=== PATIENT | male | born 1935 | race Caucasian/White ===

== ENCOUNTER 2024-08-09 16:57 | Inpatient (IN) ==
[2024-08-09 17:33] LABS: Basophils # (auto) 0.03 K/uL (0.00-0.20); Basophils % (auto) 0.3 %; Eosinophils # (auto) 0.04 K/uL (0.00-0.50); Eosinophils % (auto) 0.4 %; Hematocrit (blood only) 42.2 % (42.0-52.0); Hemoglobin 14.3 g/dl (14.0-18.0); Immature Granulocytes # (auto) 0.03 K/uL (0.01-0.20); Immature Granulocytes % (auto) 0.3 %; Lymphocytes # (auto) 0.96 K/uL (1.20-3.40); Lymphocytes % (auto) 10.2 %; Mean Corpuscular Hemoglobin 28.8 pg (25.0-34.0); Mean Corpuscular Hgb Conc 33.9 g/dL (32.0-36.0); Mean Corpuscular Volume 85.1 fL (80.0-100.0); Mean Platelet Volume 8.8 fL (9.4-12.4); Monocytes # (auto) 0.59 K/uL (0.11-0.59); Monocytes % (auto) 6.3 %; Neutrophils # (auto) 7.76 K/uL (1.40-6.50); Neutrophils % (auto) 82.5 %; Platelet Count 207 K/uL (130-400); RDW Coefficient of Variation 13.7 % (11.5-14.5); RDW Standard Deviation 42.5 fL (36.4-46.3); Red Blood Count 4.96 M/uL (4.70-6.10); White Blood Count 9.41 K/ul (4.8-10.8)
[2024-08-09 17:46] LABS: Albumin Globulin Ratio 1.4 (0.9-2); Albumin Level 4.4 gm/dl (3.4-5.0); BUN Creatinine Ratio 29.8 (10-20); Bilirubin,Total 1.5 mg/dl (0.2-1.0); Calcium 9.1 mg/dl (8.6-10.3); Creatinine Clr Calc Pharmacy 56.9 ml/min; Globulin 3.2 gm/dl (2.5-4.0); Potassium 4.2 mmol/L (3.5-5.1); Total Protein 7.6 gm/dl (6.0-8.3)
--- NOTE | 2024-08-09 17:55 | Emergency Department Note ---
Impression & Plan Hypoxia, Acute on chronic heart failure with preserved ejection fraction (HFpEF) ED Provider Note Provider: Cain Garcia MD CHIEF COMPLAINT: Shortness of breath, fluttering in chest HISTORY OF PRESENT ILLNESS: Patient is a 88-year-old gentleman significant past medical history of COPD, hyperlipidemia, lung cancer s/p radiation, CAD, BPH, diabetes, diastolic heart failure presenting here today referred for outpatient clinic. Patient states last night around midnight he began to have episodes where his hands were shaking and fluttering in his chest. Was feeling short of breath. This was intermittent over the next 3 hours or so. Was weak and a difficulty getting out of his chair this morning. States that he was able to get up and went to the doctors. Denies significant new leg swelling or any trauma or syncope. Denies chest pain. No further fluttering in the chest today. Not normally on oxygen. Was around family who had cough and cold symptoms this past weekend. Does report a little rhinorrhea and slight cough. Denies a history of significant cardiac arrhythmia. Noted to be hypoxic as well as with a borderline blood pressure of 100 systolic in the office and sent here for further care. PAST MEDICAL HISTORY: As noted above MEDICATIONS: Reviewed home medications includes aspirin SOCIAL HISTORY: Distant former smoker, PHYSICAL EXAM: GENERAL: alert and oriented in no acute distress on stretcher Head: normocephalic and atraumatic EYES: No injection, discharge or icterus. NECK: Trachea midline. ENT: Mucous membranes pink and moist. LUNGS: Airway patent. No retractions. Breath sounds clear anteriorly with some fine crackles in the bases HEART: Regular rate and rhythm. No chest wall tenderness ABDOMEN: Soft and non-tender, without guarding or rebound. SKIN: Acyanotic, warm, dry, without rashes EXTREMITIES: Without tenderness or deformities 1+ lower extremity swelling. NEUROLOGICAL: No focal deficits moving all extremities. No aphasia. No facial droop or slurred speech. EK bpm sinus rhythm with PAC. No PVC. 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 QTc 477. CONTINUOUS CARDIAC MONITORING: was ordered and showed a heart rate of 80s to 90s bpm in sinus rhythm occasional PACs Patient's laboratory studies and imaging reviewed. Differential includes Reactive airway disease, pneumonia, pneumothorax, COPD, CHF, infections, cardiac ischemia, pulmonary embolism, musculoskeletal, gastrointestinal, as well as other pathologies. IMPRESSION/MEDICAL DECISION MAKING: Patient mildly hypoxic. Distant history of smoking. Not appreciably wheezy here. Reports fluttering overnight. Occasional PAC here. Cannot tired exclude he did have an arrhythmia or A-fib overnight but do not see evidence of this of significance at this time. Again oxygen supplementation is new. Little bit of a tree swing of the legs but he states is not that severe. Blood work here without leukocytosis or anemia. No significant electrolyte abnormality signs of renal dysfunction. No troponin elevation. BNP is sent and chest x-ray obtained to look for signs of pneumonia versus fluid overload. Respiratory viral panel sent given recent sick contacts. Lower suspicion at this time for underlying PE/DVT based on his clinical exam and no evidence of calf swelling or tenderness. Again a significant history of diastolic heart failure in the past. No evidence of STEMI on EKG and again not having any chest pain. Negative respiratory viral panel. Troponin not elevated. BNP mildly elevated 181. Will give small dose of Lasix for diuresis at this time as I do believe he is somewhat fluid overloaded. Unclear if there is a true pneumonia here at this time. Did reach out to the patient's [facility] hospitalist team to discuss further admission and care here given his hypoxia. They will evaluate the patient. Later they added a procalcitonin with some elevation and decided to empirically with antibiotics. DIAGNOSIS: Hypoxia, palpitations, shortness of breath DISPOSITION: Hospitalist will evaluate Patient was agreeable with this plan. Past Med/Surg History Problem List (Updated 08/10/24 @ 00:30 by Cain Garcia M.D.) Acute on chronic heart failure with preserved ejection fraction (HFpEF) (Acute) CAP (community acquired pneumonia) Hypoxia (Acute) Pneumonia Medical History (Updated 08/10/24 @ 00:30 by Cain Garcia M.D.) Dyslipidemia CAD (coronary artery disease) "s/p stent placement 2011" HTN (hypertension) Glaucoma Type 2 diabetes mellitus Esophageal reflux COPD (chronic obstructive pulmonary disease) Asthma Surgical History (Updated 08/09/24 @ 19:22 by Eufemia Soliman PA-C) Stented coronary artery "JOSE CRUZ mid LAD 2011" History of total right hip arthroplasty H/O cataract removal with insertion of prosthetic lens "bilat" H/O sinus surgery Family History (Updated 08/09/24 @ 19:23 by Eufemia Soliman PA-C) Other Coronary heart disease Social History Smoking Status: Former smoker Tobacco Type: Cigarettes Hx Alcohol Use: No Hx Substance Use: No Preferred Language: Tristanian Communication Ability: Impaired Communication Ability Comment: Pt is legally blind, 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 Hearing Ability: Use of Hearing Aid Gum Worker Required: No Beliefs That Will Affect Care: None Current Living Situation: Alone Other Information That Helps Us Care for You: No Feels Safe at Home: Yes Safety Concerns: Feels Safe At This Time Assistive Devices: Denture - Upper, Denture - Lower, Hearing Aid - Bilateral and Walker Allergies Allergies Allergy/AdvReac Type Severity Reaction Status Date / Time bee venom protein (honey bee) Allergy Severe THROAT Verified 08/09/24 18:49 SWELLS codeine Allergy Severe throat Verified 08/09/24 18:49 swells Home Meds Home Medications Medication Instructions Recorded Confirmed amlodipine 5 mg tablet (Norvasc) 5 mg PO QAM 01/22/20 08/09/24 atorvastatin 40 mg tablet (Lipitor) 40 mg PO QPM 01/22/20 08/09/24 lisinopril 10 mg tablet 10 mg PO QAM 01/22/20 08/09/24 vit C 250 mg-vit E 90 mg-zinc 40 1 tab PO BID 01/22/20 08/09/24 mg-copper 1 [id number] capsule (PreserVision AREDS-2) aspirin 81 mg tablet,delayed 81 mg PO QAM 04/03/22 08/09/24 release latanoprost 0.005 % eye drops 1 drp OPB HS 04/03/22 08/09/24 aflibercept 2 mg/0.05 mL 2 mg intravitreal DIRECTED 07/30/22 08/09/24 intravitreal syringe (Eylea) fluticasone 250 mcg-salmeterol 50 1 inh inhalation Q12H 07/30/22 08/09/24 mcg/dose blistr powdr for inhalation (Advair Diskus) fluticasone propionate 50 2 spray intranasal QAM 08/09/24 08/09/24 mcg/actuation nasal spray,suspension Results & Data (ED) Vital Signs Vital Signs - 24 hr 08/09/24 16:58 08/09/24 17:00 08/09/24 17:03 Temperature 36.7 C Temperature Source Temporal Artery Scan Pulse Rate 93 H Pulse Rate [Right Brachial] Pulse Rhythm Regular Pulse Rhythm [Right Brachial] Pulse Strength [Right Brachial] Respiratory Rate 20 Respiratory Effort / Characteristics Non-Labored Respiratory Depth Normal Respiratory Pattern Regular Blood Pressure 155/71 H Blood Pressure [Right Arm] Blood Pressure Mean 99 Blood Pressure Mean [Right Arm] Blood Pressure Position Sitting Blood Pressure Position [Right Arm] Pulse Oximetry 94 Oxygen Delivery Method Nasal Cannula Room Air Room Air Oxygen Flow Rate 3 Sepsis Recent Fever Within 48 Hours No Sepsis New/Unexplained Change in Mental Status No Sepsis Action Taken by Nursing No Action Required 08/09/24 17:03 08/09/24 17:50 08/09/24 18:58 Temperature Temperature Source Pulse Rate 80 Pulse Rate [Right Brachial] 78 Pulse Rhythm Pulse Rhythm [Right Brachial] Regular Pulse Strength [Right Brachial] Normal Respiratory Rate 18 Respiratory Effort / Characteristics Non-Labored Respiratory Depth Normal Respiratory Pattern Regular Blood Pressure Blood Pressure [Right Arm] 116/78 Blood Pressure Mean Blood Pressure Mean [Right Arm] 90 Blood Pressure Position Blood Pressure Position [Right Arm] Lying Pulse Oximetry 90 94 Oxygen Delivery Method Nasal Cannula Room Air Oxygen Flow Rate Sepsis Recent Fever Within 48 Hours Sepsis New/Unexplained Change in Mental Status Sepsis Action Taken by Nursing Laboratory Data 08/09/24 17:11 08/09/24 17:11 Lab Results 08/09/24 Range/Units 17:11 WBC 9.41 (4.8-10.8) K/ul RBC 4.96 (4.70-6.10) M/uL Hgb 14.3 (14.0-18.0) g/dl Hct 42.2 (42.0-52.0) % MCV 85.1 (80.0-100.0) fL MCH 28.8 (25.0-34.0) pg MCHC 33.9 (32.0-36.0) g/dL RDW Std Deviation 42.5 (36.4-46.3) fL RDW Coeff of Garett 13.7 (11.5-14.5) % Plt Count 207 (130-400) K/uL MPV 8.8 L (9.4-12.4) fL Immature Gran % (Auto) 0.3 % Neut % (Auto) 82.5 % Lymph % (Auto) 10.2 % Cassia % (Auto) 6.3 % Eos % (Auto) 0.4 % Baso % (Auto) 0.3 % Neut # (Auto) 7.76 H (1.40-6.50) K/uL Lymph # (Auto) 0.96 L (1.20-3.40) K/uL Cassia # (Auto) 0.59 (0.11-0.59) K/uL Eos # (Auto) 0.04 (0.00-0.50) K/uL Baso # (Auto) 0.03 (0.00-0.20) K/uL Immature Gran # (Auto) 0.03 (0.01-0.20) K/uL PT 12.2 H (9.0-12.0) Seconds INR 1.1 (0.9-1.1) APTT 29 (21-31) Seconds PTT Ratio 1.1 Sodium 136 (136-145) mmol/L Potassium 4.2 (3.5-5.1) mmol/L Chloride 102 (98-107) mmol/L Carbon Dioxide 25 (21-32) mmol/L Anion Gap 9 (3-11) BUN 25 H (6-23) mg/dl Creatinine 0.84 (0.6-1.4) mg/dl Est Cr Clr Drug Dosing 56.9 ml/min eGFR 83.88 BUN/Creatinine Ratio 29.8 H (10-20) Glucose 117 H (70-99(Fasting)) mg/dl Calcium 9.1 (8.6-10.3) mg/dl Total Bilirubin 1.5 H (0.2-1.0) mg/dl AST 15 (13-39) U/L ALT 13 (7-52) U/L Alkaline Phosphatase 100 (34-104) U/L Troponin I High Sens 15.0 (0-20) pg/ml B-Natriuretic Peptide 181 H (0-100) pg/ml Total Protein 7.6 (6.0-8.3) gm/dl Albumin 4.4 (3.4-5.0) gm/dl Globulin 3.2 (2.5-4.0) gm/dl Albumin/Globulin Ratio 1.4 (0.9-2) Procalcitonin 0.64 H (0-0.5) ng/ml Adenovirus (PCR) Not Detected (NotDetected) B. pertussis DNA (PCR) Not Detected (NotDetected) B.parapertussis DNA PCR Not Detected (NotDetected) C. pneumoniae DNA (PCR) Not Detected (NotDetected) Coronavirus OC43 (PCR) Not Detected (NotDetected) Coronavirus HKU1 (PCR) Not Detected (NotDetected) Coronavirus 229E (PCR) Not Detected (NotDetected) SARS-CoV-2 (PCR) Not Detected (NotDetected) Coronavirus NL63 (PCR) Not Detected (NotDetected) Human Metapneumovir PCR Not Detected (NotDetected) Influenza Type A (PCR) Not Detected (NotDetected) Influenza Type B (PCR) Not Detected (NotDetected) M. pneumoniae (PCR) Not Detected (NotDetected) Parainfluenza 1 (PCR) Not Detected (NotDetected) Parainfluenza 2 (PCR) Not Detected (NotDetected) Parainfluenza 3 (PCR) Not Detected (NotDetected) Parainfluenza 4 (PCR) Not Detected (NotDetected) RSV (PCR) Not Detected (NotDetected) Entero/Rhino (PCR) Not Detected (NotDetected) Administered Medications Atorvastatin Calcium (Atorvastatin 40 Mg Tab) 40 mg PO QPM RONNA Stop: 09/08/24 22:07 Last Admin: 08/09/24 22:38 Dose: 40 mg Documented By: MARCELINA Enoxaparin Sodium (Enoxaparin Inj 40 Mg/0.4 Ml Syr) 40 mg SQ HS RONNA Stop: 09/08/24 22:07 Last Admin: 08/09/24 22:38 Dose: 40 mg Documented By: MARCELINA Latanoprost (Latanoprost 0.005% Op Soln 2.5 Ml Btl) 1 drops OPB HS RONNA Stop: 09/08/24 22:07 Last Admin: 08/09/24 22:38 Dose: 1 drops Documented By: DN Discontinued Medications Doxycycline Hyclate (Doxycycline Hyclate 100 Mg Cap) 100 mg PO NOW STA Stop: 08/09/24 20:19 Last Admin: 08/09/24 20:48 Dose: 100 mg Documented By: SAIRA Furosemide (Furosemide Inj 20 Mg/2 Ml Vial) 20 mg IV ONE ONE Stop: 08/09/24 18:49 Last Admin: 08/09/24 19:30 Dose: 20 mg Documented By: SAIRA Ceftriaxone Sodium (Rocephin) 2,000 mg in 50 mls @ 100 mls/hr IV NOW STA Stop: 08/09/24 20:48 Last Infusion: 08/09/24 21:24 Dose: Infused Documented By: Admin: 08/09/24 20:49 Dose: 100 mls/hr Documented By: SAIRA Imaging Data Radiologist's Impression: Chest X-Ray 08/09/24 17:03 EXAM: XR chest 1V not portable CLINICAL HISTORY: Chest pain, nonspecific TECHNIQUE: An X-ray image of the chest is obtained in 1 AP projection. COMPARISON: prior 02/19/2016 FINDINGS: Pulmonary Parenchyma: Bilateral increased bronchovascular markings (nonspecific) Bilateral lower lung zones and left middle lung zone opacities are likely infectious Hazy opacity over the left costophrenic angle, Mild pleural effusion couldn't be excluded Heart and Mediastinum: Heart size and shape are normal. No mediastinal widening or masses. No hilar or mediastinal lymphadenopathy. Bony Thorax: Bony thorax appears intact without fractures or deformities. Soft Tissues: Soft tissues overlying the chest wall are unremarkable. IMPRESSION: 1. Bilateral lower lung zones and left middle lung zone opacities are likely infectious (new finding). 2. Hazy opacity over the left costophrenic angle, and mild pleural effusion couldn't be excluded (increased). 3. Clinical correlation is recommended Electronically signed by Rene Berger 08-09-2024 7:53 PM Discharge Plan Visit Data Chief Complaint: Shortness of Breath/Dyspnea Stated Complaint: DIFFICULTY BREATHING - REFERRED BY DR SEQUEIRA ED Provider: Cain Garcia Discharge Problem: Hypoxia, Acute on chronic heart failure with preserved ejection fraction (HFpEF) Patient Disposition: Admitted As Inpatient Discharge Instructions Interventions: ED Discharge Assessment Last Done: 08/09/24 21:35
[2024-08-09 17:57] LABS: INR 1.1 (0.9-1.1); Partial Thromboplastin Ratio 1.1; Partial Thromboplastin Time 29 Seconds (21-31); Prothrombin Time 12.2 Seconds (9.0-12.0)
[2024-08-09 18:21] LABS: Adenovirus PCR Not Detected (NotDetected); Bordetella parapertussis PCR Not Detected (NotDetected); Bordetella pertussis PCR Not Detected (NotDetected); Chlamydia pneumoniae PCR Not Detected (NotDetected); Coronavirus 229E PCR Not Detected (NotDetected); Coronavirus CoV-2 (COVID19)PCR Not Detected (NotDetected); Coronavirus HKU1 PCR Not Detected (NotDetected); Coronavirus NL63 PCR Not Detected (NotDetected); Coronavirus OC43PCR Not Detected (NotDetected); Human Metapneumovirus PCR Not Detected (NotDetected); Influenza A PCR Not Detected (NotDetected); Influenza B PCR Not Detected (NotDetected); Mycoplasma pneumoniae PCR Not Detected (NotDetected); Parainfluenza Virus 1 PCR Not Detected (NotDetected); Parainfluenza Virus 2 PCR Not Detected (NotDetected); Parainfluenza Virus 3 PCR Not Detected (NotDetected); Parainfluenza Virus 4 PCR Not Detected (NotDetected); Respiratory Syncytial VirusPCR Not Detected (NotDetected); Rhinovirus/Enterovirus PCR Not Detected (NotDetected)
--- NOTE | 2024-08-09 19:23 | History & Physical Report ---
Date of Service August 09, 2024 Assessment & Plan (1) Hypoxia: (2) CAP (community acquired pneumonia): (3) Acute on chronic heart failure with preserved ejection fraction (HFpEF): Plan This is a 88-year-old male who has significant past medical history chronic diastolic CHF, CAD with history of angioplasty to LAD, HTN, HLD, T2DM, COPD, left lung adenocarcinoma tx with radiation and history of tobacco use who presents to ED secondary to Shortness of breath and chest fluttering x 1 day. #Hypoxia #Acute on Chronic HFpEF #CAD with hx of angioplasty to LAD admit to [facility] continue O2, wean as able, encourage ISP Received IV lasix 20mg in ED, will continue 20mg IV BID17 for now daily weights, I and O update echo, last was 2021, preserved EF w/o valvular pathology concern for possible arrhythmia given pt hx with palps for 3 hrs followed by profound exhaustion and weakness #Pneumonia, bilateral #COPD w/o acute exac pt repots chronic cough, no fever, wbc 9k, procal elevated at 0.6 --CXR concerning for bilateral pneumonia resp biofire negative empirically cover with IV rocephin 2g and oral doxy bid #T2DM - diet controlled, last a1c 6.2 in june #HTN: chronic, stable, continue amlodipine and lisinopril #HLD: Chronic, stable, continue statin #Hx of Left lung adenoca s/p radiation 6 months ago, follows rad/onc [facility] #DVT ppx: SQ Lovenox PCP: Dr. Tinajero FULL CODE Dispo: admit to [facility] Pt was seen and examined in collaboration with Dr. Dugan, please see addendum I spent a total of 72 minutes coordinating, documenting and providing care for this patient excluding time spent in the performance of separately billed services or time spent by another provider/QHP. History of Present Illness Chief Complaint: Shortness of breath and chest fluttering x 1 day. Primary Care Provider: Zafar Tinajero, This is a 88-year-old male who has significant past medical history chronic diastolic CHF, CAD with history of angioplasty to LAD, HTN, HLD, T2DM, COPD, left lung adenocarcinoma and history of tobacco use who presents to ED secondary to Shortness of breath and chest fluttering x 1 day. Hx obtained from pt, at bedside and external chart review.patient states at approximately 12 AM this morning he was lying in bed whenever he got a feeling of, "fluttering in his chest," his arms and hands were shaking, chills and sweats. states that he sleeps in a recliner so did not witness the event. He also felt increasingly more short of breath during the event. He states after approximately 3 hours the symptoms resolved on its own and he felt significantly weak after the event. It took him until approximately 5 AM to be able to get up and try to ambulate. He continued to feel weak and short of breath. He denied any amy chest pain, fever, lightheadedness, dizziness, nausea, vomiting, abdominal pain, changes bowel or urinary habits. He does have a chronic mildly productive cough. He feels this is unchanged. He does still feel more short of breath. He has never experienced anything like this before. He does follow with [facility] cardiology given his known history of diastolic CHF and prior angioplasty to his LAD. He has been compliant with his medications. He lives with his at home and is otherwise active. He was seen and evaluated by PCP who recommended further evaluation in ED due to patient being slightly hypoxic at 88%. In ED patient was hemodynamically stable. He did require 2 L of oxygen via nasal cannula to maintain saturation around 94%. His CBC and CMP was generally unremarkable. Initial troponin was WNL. His BNP was elevated at 181. He does have a mildly elevated procalcitonin at 0.64. His respiratory bio fire was negative. CXR concerning for b/l PNA. Allergies Allergy/AdvReac Type Severity Reaction Status Date / Time bee venom protein (honey bee) Allergy Severe THROAT Verified 08/09/24 18:49 [facility] codeine Allergy Severe throat Verified 08/09/24 18:49 [facility] Home Medications Medication Instructions Recorded Confirmed Type amlodipine 5 mg tablet (Norvasc) 5 mg PO QAM 01/22/20 08/09/24 History atorvastatin 40 mg tablet (Lipitor) 40 mg PO QPM 01/22/20 08/09/24 History lisinopril 10 mg tablet 10 mg PO QAM 01/22/20 08/09/24 History vit C 250 mg-vit E 90 mg-zinc 40 1 tab PO BID 01/22/20 08/09/24 History mg-copper 1 st-iftfnx-aorzyb capsule (PreserVision AREDS-2) aspirin 81 mg tablet,delayed 81 mg PO QAM 04/03/22 08/09/24 History release latanoprost 0.005 % eye drops 1 drp OPB HS 04/03/22 08/09/24 History aflibercept 2 mg/0.05 mL 2 mg intravitreal DIRECTED 07/30/22 08/09/24 History intravitreal syringe (Eylea) fluticasone 250 mcg-salmeterol 50 1 inh inhalation Q12H 07/30/22 08/09/24 History mcg/dose blistr powdr for inhalation (Advair Diskus) fluticasone propionate 50 2 spray intranasal QAM 08/09/24 08/09/24 History mcg/actuation nasal spray,suspension Past Med/Surg History Problem List (Updated 08/10/24 @ 13:26 by Artur Wilson DO) Primary lung adenocarcinoma Acute hypoxic respiratory failure Acute on chronic heart failure with preserved ejection fraction (HFpEF) (Acute) CAP (community acquired pneumonia) Hypoxia (Acute) Pneumonia Medical History Dyslipidemia CAD (coronary artery disease) "s/p stent placement 2011" HTN (hypertension) Glaucoma Type 2 diabetes mellitus Esophageal reflux COPD (chronic obstructive pulmonary disease) Asthma Surgical History Stented coronary artery "JOSE CRUZ mid LAD 2011" History of total right hip arthroplasty H/O cataract removal with insertion of prosthetic lens "bilat" H/O sinus surgery Family History Other Coronary heart disease Social History Smoking Status: Former smoker Tobacco Type: Cigarettes Hx Alcohol Use: No Hx Substance Use: No Preferred Language: Slovenian Communication Ability: Effective Communication Ability Comment: Pt is legally blind, 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 Hearing Ability: Use of Hearing Aid Religious Leader Required: No Beliefs That Will Affect Care: None Current Living Situation: Alone Other Information That Helps Us Care for You: No Feels Safe at Home: Yes Safety Concerns: Feels Safe At This Time Assistive Devices: Walker Review of Systems Review of Systems: All systems reviewed & are unremarkable except as noted in HPI & below Physical Exam Physical Exam: Constitutional: WD/WN, vitals as above, NAD, sitting up in bed, pleasant, conversing easily Head: Normocephalic, Atraumatic Eyes: PERRL, conjunctivae normal, anicteric sclerae ENMT: external ear and nose normal, oropharynx normal Neck: trachea midline, no thyromegaly normal visual inspection Respiratory: normal respiratory effort, lungs clear to auscultation,+ crackles at bases, no wheeze, rales, rhonchi. Normal insp/exp effort, no accessory m uscle use Cardiovascular: RRR, no murmur, no edema Vessels: no JVD or carotid bruit Chest: normal inspection of chest Abdomen: normal bowel sounds, soft, nontender, no hepatosplenomegaly Musculoskeletal: no cyanosis or clubbing, extremities motor strength 5/5 Skin: no rashes, warm and dry normal turgor Neurologic: PERRL, EOMI, accommodation nl, no face palsy, no dysarthria CN's II-XI intact bilaterally and moves all extremities Psychiatric: A+Ox3, euthymic affect Lymphatic: no cervical or axillary lymphadenopathy : deferred Results & Data Results & Data Vital Signs (Past 12 Hours) Vital Signs Temp Pulse Resp BP Pulse Ox O2 Del Method O2 Flow Rate 08/09/24 17:50 80 08/09/24 17:03 90 Nasal Cannula 08/09/24 17:03 Room Air 08/09/24 17:00 36.7 C 93 H 20 155/71 H 94 Room Air 08/09/24 16:58 Nasal Cannula 3 Laboratory Results I have independently reviewed and interpreted patient's admitting labs including CBC, CMP, PTT, PT/INR, bnp and troponin. Diagnostic Findings Chest X-Ray 08/09/24 17:03 EXAM: XR chest 1V not portable CLINICAL HISTORY: Chest pain, nonspecific TECHNIQUE: An X-ray image of the chest is obtained in 1 AP projection. COMPARISON: prior 02/19/2016 FINDINGS: Pulmonary Parenchyma: Bilateral increased bronchovascular markings (nonspecific) Bilateral lower lung zones and left middle lung zone opacities are likely infectious Hazy opacity over the left costophrenic angle, Mild pleural effusion couldn't be excluded Heart and Mediastinum: Heart size and shape are normal. No mediastinal widening or masses. No hilar or mediastinal lymphadenopathy. Bony Thorax: Bony thorax appears intact without fractures or deformities. Soft Tissues: Soft tissues overlying the chest wall are unremarkable. IMPRESSION: 1. Bilateral lower lung zones and left middle lung zone opacities are likely infectious (new finding). 2. Hazy opacity over the left costophrenic angle, and mild pleural effusion couldn't be excluded (increased). 3. Clinical correlation is recommended Electronically signed by Rene Berger 08-09-2024 7:53 PM Medications Administered Current Inpatient Medications Doxycycline Hyclate (Doxycycline Hyclate 100 Mg Cap) 100 mg PO BID RONNA Stop: 08/14/24 20:59 Ceftriaxone Sodium (Rocephin) 2,000 mg in 50 mls @ 100 mls/hr IV Q24H RONNA Stop: 08/14/24 20:14 ECG Additional Comments: I have independently reviewed and interpreted patient's admitting EKG which revealed: NSR 94 bpm with PAC, LAFB and RBB noted COVID-19 Results Results COVID-19 Adm Lab Results: RBC 4.13 M/uL (4.70-6.10) L 08/10/24 WBC 5.98 K/ul (4.8-10.8) 08/10/24 Hgb 11.9 g/dl (14.0-18.0) L 08/10/24 Hct 35.4 % (42.0-52.0) L 08/10/24 Plt Count 168 K/uL (130-400) 08/10/24 Neutrophils (%) (Auto) 82.5 % 08/09/24 Lymphocytes (%) (Auto) 10.2 % 08/09/24 Monocytes # (Auto) 0.59 K/uL (0.11-0.59) 08/09/24 Eosinophils # (Auto) 0.04 K/uL (0.00-0.50) 08/09/24 Immature Granulocyte % (Auto) 0.3 % 08/09/24 Neutrophils # (Auto) 7.76 K/uL (1.40-6.50) H 08/09/24 Lymphocytes # (Auto) 0.96 K/uL (1.20-3.40) L 08/09/24 Monocytes # (Auto) 0.59 K/uL (0.11-0.59) 08/09/24 Eosinophils # (Auto) 0.04 K/uL (0.00-0.50) 08/09/24 Basophils # (Auto) 0.03 K/uL (0.00-0.20) 08/09/24 Immature Granulocyte # (Auto) 0.03 K/uL (0.01-0.20) 5 Na 137 mmol/L (136-145) 08/10/24 K 3.8 mmol/L (3.5-5.1) 08/10/24 Cl 105 mmol/L (98-107) 08/10/24 CO2 27 mmol/L (21-32) 08/10/24 Anion Gap 5 (3-11) 08/10/24 BUN 27 mg/dl (6-23) H 08/10/24 Creatinine 0.73 mg/dl (0.6-1.4) 08/10/24 BUN/Creatinine Ratio 37.0 (10-20) H 08/10/24 Glucose Level 96 mg/dl (70-99(Fasting)) 08/10/24 Ca 8.5 mg/dl (8.6-10.3) L 08/10/24 Total Bilirubin 1.5 mg/dl (0.2-1.0) H 08/09/24 Direct Bilirubin 0.2 mg/dl (0-0.2) 08/10/24 AST/SGOT 15 U/L (13-39) 08/09/24 ALT/SGPT 13 U/L (7-52) 08/09/24 Alkaline Phosphatase 100 U/L (34-104) 08/09/24 Total Protein 7.6 gm/dl (6.0-8.3) 08/09/24 Albumin 4.4 gm/dl (3.4-5.0) 08/09/24 Globulin 3.2 gm/dl (2.5-4.0) 08/09/24 Albumin/Globulin Ratio 1.4 (0.9-2) 08/09/24 Procalcitonin 0.64 ng/ml (0-0.5) H 08/09/24 PTT 29 Seconds (21-31) 08/09/24 INR 1.1 (0.9-1.1) 08/09/24 Adenovirus (PCR) Not Detected (NotDetected) 08/09/24 B. parapertussis DNA (PCR) Not Detected (NotDetected) 07/31 B. pertussis DNA (PCR) Not Detected (NotDetected) 08/09/24 C. pneumoniae DNA (PCR) Not Detected (NotDetected) 5 Coronavirus Type OC43 (PCR) Not Detected (NotDetected) 07/31 Coronavirus Type HKU1 (PCR) Not Detected (NotDetected) 07/31 Coronavirus Type 229E (PCR) Not Detected (NotDetected) 07/31 COVID-19 PCR Not Detected (NotDetected) 08/09/24 Coronavirus Type NL63 (PCR) Not Detected (NotDetected) 07/31 Human Metapneumovirus (PCR) Not Detected (NotDetected) 07/31 Influenza Virus Type A (PCR) Not Detected (NotDetected) Influenza Virus Type B (PCR) Not Detected (NotDetected) M. pneumoniae (PCR) Not Detected (NotDetected) 08/09/24 Parainfluenza Type 1 (PCR) Not Detected (NotDetected) 07/31 Parainfluenza Type 2 (PCR) Not Detected (NotDetected) 07/31 Parainfluenza Type 3 (PCR) Not Detected (NotDetected) 07/31 Parainfluenza Type 4 (PCR) Not Detected (NotDetected) 07/31 RSV (PCR) Not Detected (NotDetected) 08/09/24 Enterovirus/Rhinovirus (PCR) Not Detected (NotDetected) Chest X-Ray 08/09/24 Code Status & VTE Plan Code Status FULL CODE Supervising Physician Co-Signing Physician Notes Pt was seen and examined by myself, Alyce Dugan MD on the day of service. Care was coordinated with Eufemia Soliman PA-C. 88yo presenting with chest pain. Found to be in acute CHF exacerbation with concern for pneumonia as well. RRR, breath sounds with some crackles noted Diuresis with IV lasix, IV rocephin and doxycycline for pneumonia Cardiology consult, appreciate further recs Otherwise as above. I spent a total [id number] coordinating, documenting, and providing care for this patient excluding time spent in the performance of separately billed se rvices
[2024-08-09] MEDS: FUROSEMIDE INJ 20 MG/2 ML VIAL IV ONE (19:30)
--- NOTE | 2024-08-09 19:53 | XRay Report ---
EXAM: XR chest 1V not portable CLINICAL HISTORY: Chest pain, nonspecific TECHNIQUE: An X-ray image of the chest is obtained in 1 AP projection. COMPARISON: prior 02/19/2016 FINDINGS: Pulmonary Parenchyma: Bilateral increased bronchovascular markings (nonspecific) Bilateral lower lung zones and left middle lung zone opacities are likely infectious Hazy opacity over the left costophrenic angle, Mild pleural effusion couldn't be excluded Heart and Mediastinum: Heart size and shape are normal. No mediastinal widening or masses. No hilar or mediastinal lymphadenopathy. Bony Thorax: Bony thorax appears intact without fractures or deformities. Soft Tissues: Soft tissues overlying the chest wall are unremarkable. IMPRESSION: 1. Bilateral lower lung zones and left middle lung zone opacities are likely infectious (new finding). 2. Hazy opacity over the left costophrenic angle, and mild pleural effusion couldn't be excluded (increased). 3. Clinical correlation is recommended Electronically signed by Rene Berger 08-09-2024 7:53 PM
[2024-08-09] MEDS: DOXYCYCLINE HYCLATE 100 MG CAP PO STA (20:48)
[2024-08-09] MEDS: cefTRIAXone SODIUM 2,000 MG/50 ML BAG IV STA (20:49)
[2024-08-09] MEDS ORDERED: ALUMINUM/MAGNESIUM SUSP 30 ML UDC PO PRN (22:08)
[2024-08-09] MEDS ORDERED: ONDANSETRON INJ 2 MG/ML 2 ML VIAL IV PRN (22:08)
[2024-08-09] MEDS ORDERED: POLYETHYLENE (MIRALAX) 17 GM PACK PO PRN (22:08)
[2024-08-09] MEDS ORDERED: FAMOTIDINE 20 MG TAB PO PRN (22:08)
[2024-08-09] MEDS ORDERED: ACETAMINOPHEN 325 MG TAB PO PRN (22:08)
[2024-08-09] MEDS: ENOXAPARIN INJ 40 MG/0.4 ML SYR SQ SCH (22:38)
[2024-08-09] MEDS: ATORVASTATIN 40 MG TAB PO SCH (22:38)
[2024-08-09] MEDS: LATANOPROST 0.005% OP SOLN 2.5 ML BTL OPB SCH (22:38)
[2024-08-10 06:08] LABS: Hematocrit (blood only) 35.4 % (42.0-52.0); Hemoglobin 11.9 g/dl (14.0-18.0); Mean Corpuscular Hemoglobin 28.8 pg (25.0-34.0); Mean Corpuscular Hgb Conc 33.6 g/dL (32.0-36.0); Mean Corpuscular Volume 85.7 fL (80.0-100.0); Mean Platelet Volume 9.1 fL (9.4-12.4); Platelet Count 168 K/uL (130-400); RDW Coefficient of Variation 13.5 % (11.5-14.5); RDW Standard Deviation 42.3 fL (36.4-46.3); Red Blood Count 4.13 M/uL (4.70-6.10); White Blood Count 5.98 K/ul (4.8-10.8)
[2024-08-10 06:12] LABS: Bilirubin Direct 0.2 mg/dl (0-0.2); Calcium 8.5 mg/dl (8.6-10.3); Creatinine Clr Calc Pharmacy 65.7 ml/min; Magnesium 1.9 mg/dl (1.7-2.4); Potassium 3.8 mmol/L (3.5-5.1)
[2024-08-10 06:28] LABS: Thyroid Stimulating Hormone 3.648 uIu/ml (0.300-4.500)
--- OUTSIDE RECORDS SUMMARY | 2024-08-10 07:22 | External Medical Summary ---
Author Name Unknown Address Unknown Organization [id number]:[facility] [address] [place] [address] Laboratory Report Ordering Provider Test Date Status JORDAN PORTER 08/09/2024 14:21:41 Final Observation Date Value Abnormality Reference (Units ) Status Color of Urine by Auto 08/09/2024 14:21:41 Yellow Light Yellow, Yellow, Dark Yellow Final Clarity, Urine 08/09/2024 14:21:41 Clear Clear Final Glucose [Mass/volume] in Urine by Automated test strip 08/09/2024 14:21:41 Negative Negative (mg/dL) Final Bilirubin.total [Presence] in Urine by Automated test strip 08/09/2024 14:21:41 Negative Negative Final Ketones [Mass/volume] in Urine by Automated test strip 08/09/2024 14:21:41 Trace Abnormal Negative (mg/dL) Final Specific gravity, Urine 08/09/2024 14:21:41 1.015 1.003-1.030 Final Hemoglobin [Presence] in Urine by Automated test strip 08/09/2024 14:21:41 Trace Abnormal Negative Final pH, Urine 08/09/2024 14:21:41 5.5 5.0-7.5 (Units) Final Protein [Mass/volume] in Urine by Automated test strip 08/09/2024 14:21:41 30 Abnormal Negative (mg/dL) Final Urobilinogen [Mass/volume] in Urine by Automated test strip 08/09/2024 14:21:41 1.0 0.2, 1.0 (mg/dL) Final Nitrite [Presence] in Urine by Automated test strip 08/09/2024 14:21:41 Negative Negative Final Leukocyte esterase [Presence] in Urine by Automated test strip 08/09/2024 14:21:41 Negative Negative Final RBC, Urine 08/09/2024 14:21:41 0-2 0-2 (/HPF) Final WBC, Urine 08/09/2024 14:21:41 0-2 0-2 (/HPF) Final Bacteria [#/area] in Urine sediment by Microscopy high power field 08/09/2024 14:21:41 0-25 0-25 (/HPF) Final CULTURE, URINE - [facility] 08/09/2024 14:21:41 Final Culture not indicated by uri nalysis results\X09\ Performing Location [facility] [address] [place] [address]
--- OUTSIDE RECORDS SUMMARY | 2024-08-10 07:22 | External Medical Summary ---
Author Name Unknown Address Unknown Organization [id number]:[facility] [address] [place] [address] Laboratory Report Ordering Provider Test Date Status JORDAN PORTER 08/09/2024 14:21:41 Final Observation Date Value Abnormality Reference (Units ) Status WBC, Total 08/09/2024 14:21:41 8.59 4.00-10.8 0 (K/uL) Final RBC 08/09/2024 14:21:41 4.80 4.50-5.25 (M/uL) Final Hemoglobin 08/09/2024 14:21:41 13.9 Below low normal 14 .0-16.8 (g/dL) Final HCT 08/09/2024 14:21:41 42.4 40.0-48.4 (%) Final MCV 08/09/2024 14:21:41 88.3 82.0-99.5 (fL) Final MCH 08/09/2024 14:21:41 29.0 27.0-34.0 (pg) Final MCHC 08/09/2024 14:21:41 32.8 32.0-36.0 (g/dL) Final RDW 08/09/2024 14:21:41 14.2 11.5-15.5 (%) Final Platelets 08/09/2024 14:21:41 196 140-400 (K /uL) Final MPV 08/09/2024 14:21:41 9.0 6.6-11.1 ( fL) Final Performing Location [facility] [address] [place] [id number]
--- OUTSIDE RECORDS SUMMARY | 2024-08-10 07:23 | External Medical Summary ---
Author Name Unknown Address Unknown Organization K0G:[facility] [address] [place] [address] Laboratory Report Ordering Provider Test Date Status JORDAN PORTER 08/09/2024 14:21:41 Final Observation Date Value Abnormality Reference (Units ) Status BUN 08/09/2024 14:21:41 23 Above high normal 6-20 (mg/dL) Final Creatinine 08/09/2024 14:21:41 0.8 0.6-1.2 (mg/dL) Final Glomerular filtration rate/1.73 sq M.predicted [Volume Rate/Area] in Serum, Plasma or Blood by Creatinine-based formula (CKD-EPI) 08/09/2024 14:21:41 84 >=60 (mL/min) Final eGFR is calculated based on the CKD-EPI 2020 equation. Sodium 08/09/2024 14:21:41 136 135-146 (m mol/L) Final Potassium 08/09/2024 14:21:41 4.4 3.5-5.1 (m mol/L) Final Cl 08/09/2024 14:21:41 101 98-107 (mm ol/L) Final CO2 08/09/2024 14:21:41 23 22-32 (mmo l/L) Final Anion gap 08/09/2024 14:21:41 12 7-15 (mmol /L) Final Glucose 08/09/2024 14:21:41 141 Above high normal 70 -120 (mg/dL) Final Albumin 08/09/2024 14:21:41 4.0 3.8-5.0 (g /dL) Final AST (Aspartate aminotransferase) 08/09/2024 14:21:41 16 10-50 (U/L) Fin al Alk Phos 08/09/2024 14:21:41 110 35-130 (U/ L) Final Bilirubin, Total 08/09/2024 14:21:41 1.1 <=1 .2 (mg/dL) Final Calcium 08/09/2024 14:21:41 8.5 8.4-10.2 ( mg/dL) Final Protein 08/09/2024 14:21:41 6.4 6.0-8.3 (g /dL) Final ALT (Alanine aminotransferase) 08/09/2024 14:21:41 13 10-50 (U/L) Mike rollins Performing Location [facility] [address] [place] [address]
--- OUTSIDE RECORDS SUMMARY | 2024-08-10 07:23 | External Medical Summary ---
Author Name Unknown Address Unknown Organization K01:[facility] [address] [facility] [address] Laboratory Report Ordering Provider Test Date Status JORDAN PORTER 06/29/2024 13:18:43 Final Observation Date Value Abnormality Reference (Units ) Status SYNC LEUKOCYTES IN BLOOD BY AUTOMATED COUNT 06/29/2024 13:18:43 7.16 4.00-10.80 (K/uL) Final Segs 06/29/2024 13:18:43 68.3 40.0-75.0 (%) Final Lymphs % 06/29/2024 13:18:43 15.8 Below low normal 18.0-42.0 (%) Final Monos 06/29/2024 13:18:43 7.8 1.0-11.0 (%) Final Eosinophils 06/29/2024 13:18:43 6.7 Above high normal 0.0-6.0 (%) Final Basos 06/29/2024 13:18:43 0.7 0.0-2.0 (%) Final Immature Granulocyte, Percent 06/29/2024 13:18:43 0.7 0.0-2.0 (%) Final Absolute Segs 06/29/2024 13:18:43 4.89 1.80-7.70 (K/uL) Final Lymphs, absolute 06/29/2024 13:18:43 1.13 1.00-4.80 (K/ul) Final Monos, Abs 06/29/2024 13:18:43 0.56 0.00-1.10 (K/uL) Final Eos, Abs 06/29/2024 13:18:43 0.48 0.00-0.70 (K/uL) Final Basos, Abs 06/29/2024 13:18:43 0.05 0.00-0.20 (K/uL) Final Immature Granulocytes, Number 06/29/2024 13:18:43 0.05 0.00-0.20 (K/uL) Final Performing Location [facility] [address] [place] [address]
--- OUTSIDE RECORDS SUMMARY | 2024-08-10 07:23 | External Medical Summary | Summary of Care ---
Author Name Unknown Organization [facility] Address [address] [place] [address] Phone [phone] Care Team Providers Care Electrical Instrumentation Technician Name Role Phone Zafar Tinajero DO Primary Care Provider [phone] Reason for Visit * Reason Onset Date Comments Test Results 07/02/2024 Encounter Details Date Type Department Care Team (Late st Contact Info) Description 07/02/2024 Telephone Family Practice [address] [facility] [address] [place] [address] Zafar Tinajero DO [address] [place] [address] Test Results (/) Allergies Active Allergy Reactions Criticality Noted Date Comments Codeine Sulfate High 08/05/2010 Throat swelling Oxycodone-Acetaminophen 08/22/2023 documented as of this encounter (statuses as of 07/02/2024) Medications ASPIRIN 81 MG PO CHEWIndications :INTERFACED RESULT take one tablet daily 30 Tab 11 2 Active PRESERVISION AREDS 2 PO CAPS Take 1 capsule by mouth twice daily Active Glucose Blood (ONETOUCH VERIO) STRP Test blood sugar twice times daily or as directed E11.9 200 Strip 3 0 Active Dutasteride 0.5 MG Oral Capsule (Avodart) Take 1 Capsule by mouth in the morning. 90 Capsule 3 3 Active Fluticasone-Irwin meterol 250-50 MCG/ACT Inhalation Aerosol Powder Breath Activated (Advair Diskus) Inhale 1 Puff by mouth in the morning and 1 Puff before bedtime. 180 Each 2 4 Active Latanoprost 0.005 % Ophthalmic Solution (Xalatan)Indica tions:Other glaucoma of both eyes Instill 1 drop into both eyes once daily 2.5 mL 12 4 Active Fluticasone Propionate 50 MCG/ACT Nasal Suspension (Flonase)Indica tions:Nasal polyp Administer 2 Sprays into each nostril in the morning. 48 g 3 4 Active Atorvastatin Calcium 40 MG Oral Tablet (Lipitor)Indica tions:Dyslipide sumanth, goal LDL below 100 Take 1 Tablet by mouth daily. 90 Tablet 1 4 Active Lisinopril 10 MG Oral Tablet (Prinivil)Indic ations:HTN, goal below 140/90 Take 1 Tablet by mouth in the morning. 90 Tablet 1 4 Active amLODIPine Besylate 5 MG Oral Tablet (Norvasc) Take 1 Tablet by mouth in the morning. 90 Tablet 1 4 Active Hospital, Clinic, or Other Facility Administered Medication Ordered Dose Route Frequency Start Date End Date Status Faricimtb-svoa ([facility]) prefilled syringe inj 6 mgIndications:Exudative 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 with active choroidal neovascularization (HCC) 6 mg IZ PRN 04/25/2024 04/25/2025 Active documented as of this encounter (statuses as of 07/02/2024) Active Problems Problem Noted Date Diagnosed Date Adenocarcinoma, lung, left 10/18/2023 Cancer Staging:Clinical: Unsigned Generalized weakness 08/31/2022 Assessment & Plan (08/31/2022 11:06 AM EDT): Weakness, abnormal gait for several months--> he is unsure if it is med related. No falls. Seems reluctant for home PT as he does his own exercises. 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 06/22/2022 Assessment & Plan (06/20/2023 4:33 PM EST): "RED FLAG" HF Symptoms: Leg Swelling (Examples: "I can't wear certain socks or shoes", "My pants feel tight") Increased dyspnea on exertion (Example: "I can't walk to the kitchen or up the stairs") Medication Regimen: Beta Destiny Therapy: No beta-destiny secondary to unknown ROSA Inhibitor/ARB Therapy: Lisinopril Diuretic therapy: No diuretic secondary to no longer needed SGLT2 Inhibitor: No Current SGLT2 (Describe in the Comments) Remote Patient Monitoring Vendor: [facility] Device(s): Refinder by Gnowsis Scale Self - Management Plan Other/Additional Comments: no current diuretic use Exacerbation Plan BMP Chest X-Ray Additional Comments: Overall stable, not on diuretics Assessment & Plan (08/31/2022 11:03 AM EDT): Plan as noted above Chronic diastolic heart failure 07/29/2021 Overview (09/07/2022): Echocardiogram 01/06/2022 Ejection fraction 50-59% Grade 1 diastolic dysfunction Assessment & Plan (09/07/2022 1:58 PM EDT): Euvolemic today. Assessment & Plan (08/31/2022 11:02 AM EDT): Appears euvolemic -continue lisinopril Primary open-angle glaucoma, bilateral, indeterm inate stage 06/19/2021 Nonallergic rhinitis 01/13/2021 COPD, group B, by GOLD 2017 classification 12/16 Overview: Per COPD GOLD Classification Assessment & Plan (06/20/2023 4:31 PM EST): "RED FLAG" COPD symptoms: Increased dyspnea on exertion ("I can't walk to the kitchen or up the stairs without coughing and wheezing", "My chest feels tight any time I move") Wheezing ("You can hear the whistling across the room") Medication Regimen Class D, Asthma/COPD Overlap - Inhaled Glucocorticoid-LABA Combination Inhaler Remote Patient Monitoring Vendor: No Connected RPM Device(s): Connected Scale Traditional Pulse Ox Self-Management plan Other/Additional Comments: no recent exacerbation Exacerbation plan Chest Xray Additional Comments: Breathing stable overall Assessment & Plan (08/31/2022 11:04 AM EDT): Continue advair. Albuterol prn. 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 History of tobacco use 08/24/2012 Nasal polyps 08/24/2012 Assessment & Plan (09/07/2022 2:00 PM EDT): On Dupixent -message sent to prescribing team for follow-up. Patient is due this week for his next injection. Assessment & Plan (08/31/2022 11:04 AM EDT): Just started dupixent Sensorineural hearing loss, bilateral 08/24/2012 Presence of drug coated stent in LAD coronary ar laura 04/19/2012 Dyslipidemia, goal LDL below 100 04/17/2009 Overview (04/17/2009): Per Lipid Taxonomy. Controlled type 2 diabetes m shirleyitus without complication, without long-term current use of insulin 03/06/2009 Overview (09/02/2015): Per Diabetes Taxonomy. ICD-10 update of inactive term Assessment & Plan (06/20/2023 4:29 PM EST): "RED FLAG" Diabetic symptoms: Increased Urine Output and Confusion Goal HgbA1c <8 Diabetic Complications Opthalmologic Medication Regimen Lifestyle Modification / Monitoring ONLY DM Secondary Prevention ROSA Inhibitor / ARB Yearly Diabetic Eye Exam Additional Comments Recent A1c at goal Elevated prostate specific antigen (PSA) 999 Assessment & Plan (06/21/2023 8:51 AM EST): Follows with urology Continues on dutasteride although decreased frequency due to side effects documented as of this encounter (statuses as of 07/02/2024) Resolved Problems Problem Noted Date Diagnosed Date Resolved Date Prediabetes 10/18/2023 12/27/2023 Cellulitis of left lower extremity 08/31/2022 10/20/2022 Assessment & Plan (09/07/2022 2:00 PM EDT): Healing well Assessment & Plan (08/31/2022 11:05 AM EDT): Finished ABX about 2 weeks ago -f/u next week for a recheck 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 Yap Primary open-angle glaucoma, bilateral, mild stage 02/11/2020 02/19/2022 Asthma with severity to be determined 05/22/2019 01/16/2020 Type 2 diabetes mellitus wit h hemoglobin A1c goal of less than 7.0% 05/10/2018 05/16/2018 Viral syndrome 11/03/2016 07/26/2017 Severe sepsis 10/31/2016 11/03/2016 Overview (10/31/2016): Altered mental status DELFINO SOB Tobacco abuse, in remission 04/29/2016 11/22/2019 Nodule of left lung 04/29/2016 03/23/20 24 COPD, moderate 04/29/2016 12/20/2019 Overview: Per COPD GOLD Classification Smell and taste disorder 02/07/2013 Chronic rhinitis 09/21/2012 09/30/2021 Sleep-disordered breathing 08/24/2012 0 12/07/2016 Snoring 08/24/2012 05/10/2018 Overview (08/19/2015): ICD-10 update of inactive term Esophageal reflux 08/24/2012 07/10/2018 Excessive cerumen in ear canal 08/24/2012 12/07/2016 Otitis externa, chronic 08/24/201207/08 Res[facility] Clinical Trial [id number] 05/18/2012 05/16/2013 Overview: Renamed per the Centers for Medicare and Medicaid billing requirements to include Clinical Trial.gov number. Resolute Integrity Clinical Trial [id number] 05/18/2012 04/01/2014 Overview: Renamed per the Centers for Medicare and Medicaid billing requirements to include Clinical Trial.gov number. [employer] Other*[id number] 04/17/2012 06/15/2016 Overview (04/17/2012): Study Title: Genomic Markers for Patients with Cardiovascular Disease Project # [id number] Service Attendant: Jennifer Xiong MD [phone] HTN, GOAL BELOW 140/80 12/27/201108/13 Overview: Per HTN Protocol #27. HTN, GOAL BELOW 130/80 06/04/200912/29 Overview (06/04/2009): Per HTN Taxonomy. HTN, goal below 140/90 10/22/200806/04 Overview (06/04/2009): Per HTN Taxonomy. Dyslipidemia, goal LDL below 160 10/12/2006 04/17/2009 Overview (04/17/2009): Per Lipid Taxonomy. ADVANCE DIRECTIVE INFORMATION 01/12/2005 12/07/2016 Overview (01/12/2005): No, Advance Directive brochure given to patient at prior appointment. LIPOMA SKIN NEC 05/13/2003 12/07/2016 Nasal polyp 11/22/2001 12/07/2016 Other specified glaucoma 08/09/199909/2019 TUBULAR ADENOMA POLYP OF COLON 04/09/1998 05/10/2018 Type 2 diabetes mellitus wit h hemoglobin A1c goal of less than 7.0% 03/06/2009 Overview (09/02/2015): Per Diabetes Taxonomy. ICD-10 update of inactive term documented as of this encounter (statuses as of 07/02/2024) Immunizations Name Administration Dates Next Due COVID-19 mRNA, LNP-s, No Pre serve, 2-Dose Series (Moderna) 07/18/2020,06/06/2020 COVID-19, MRNA-LNP, PF, 30 M CG/0.3 mL, 12 YRS AND ABOVE, IM (PFIZER-Comirnaty) 01/26/2024,03/23/2023 COVID-19, mRNA, LNP-s, PF, B ooster, 100mcg/0.5mg (Moderna) 09/01/2021,03/02/2021 Covid-19, Mrna, Lnp-s, Pf, B ivalent, 30 Mcg, IM, 12 yrs and above (Pfizer) 02/24/2022 Pneumococcal Conjugate Vacc, 13 Valent (Prevnar) 02/14/2015 Pneumococcal Conjugate Vacci ne, 20-valent (Egeweto64) 01/26/2024 Pneumococcal Polysaccharide PPV23 (Pneumovax) 06/16/2012 RSV Vac., Bivalent, Perfusio n F, Pf,0.5 Ml (Abrysvo) 04/13/2023 Season Influenza, Quad, PF, Adjuvanted, 65+ Yrs, IM (FLUAD) 01/16/2020 Seasonal Influenza Vac., MDV , IM, 0.5 mL (Fluzone) 02/20/2016,02/18/2014,02/05/2013,03/22,03/11/2011,03/23/2010,02/07/2009 ,03/08/2008,02/14/2007,02/24/2006 Seasonal Influenza, High Dos e, Trivalent, PF, IM (Fluzone HD) 01/13/2024 Seasonal Influenza, PF, 6 M & above, IM , (FluLaval or Fluzone) 01/25/2018 Seasonal Influenza, Quadriva lent Hd (Fluzone Hd) 01/22/2023,01/13/2022,01/24/2021 Seasonal Influenza, Quadriva lent, No Preserve, IM 02/06/2017,02/14/2015 Seasonal Influenza, Trivalen t, Adjuvanted, 65+ YRS, PF, (Fluad) 02/02/2019 TD, Preservative Free 12/24/2009 TDAP (age 10 and older)(Boostrix) 07/04/2020, Varicella Zoster Vaccine (Adult) 05/21/2015 Zoster Vaccine Recombinant (Shingrix) 09/23/2021 ,06/19/2021 documented as of this encounter Social History Tobacco Use Types Packs/Day Years Used Date Smoking Tobacco: Former Cigarettes 0.5 5 0 05/09/1974 - 05/09/1979 Passive Smoke Exposure: Past Smokeless Tobacco: Never Comments:No passive smoke ex posures Alcohol Use Standard Drinks/Week Comments Not Currently 0 (1 standard drink = 0.6 oz pure alcohol) rare glass of wine or beer/socially PHQ-2 Answer Date Recorded PHQ Adult Total Score 0 06/25/2024 Hunger Vital Sign Answer Date Recorded Within the past 12 months, y ou worried that your food would run out before you got the money to buy more. Never true 08/23/19 24 Within the past 12 months, t he food you bought just didn't last and you didn't have money to get more. Never true 08/23/2023 Childcare Answer Date Recorded Do you feel overwhelmed with taking care of a child, family member or friend? No 08/23/2023 Does your family need help f inding childcare? (Household - for ages 0-17 years) Not on file 08/23/2023 Clothing Answer Date Recorded Have you been unable to get clothing when it was really needed? No 08/23/2023 Is your family able to get c lothes or diapers when needed? (Household - for ages 0-17 years) Not on file 08/23/2023 Personal Safety Answer Date Recorded Do you feel unsafe or have concerns for your saf ety? No 08/23/2023 Do you have concerns for you r family's safety? (Household - for ages 0-17 years) Not on file 08/23/2023 Utilities Answer Date Recorded Do you have trouble paying y our heating, water, or electric bill? No 08/23/2023 Is your family able to pay t he heat, water, or electric bill? (Household - for ages 0-17 years) Not on file 08/23/2023 Does your family have access to good internet? (Household - for ages 0-17 years) Not on file 08/23/2023 Employment Status Answer Date Recorded Are you unemployed or without regular income? No 08/23/2023 Does the household have a [facility] source of income? (Household - for ages 0-17 years) Not on file 08/23/2023 Social Connections Answer Date Recorded How often do you feel lonely or isolated from th ose around you? Never 08/23/2023 Financial Resource Strain Answer Date R ecorded Do you have any trouble payi ng for your medications, or do you think you might in the future? No 08/23/2023 Does your family have troubl e paying for medicine? (Household - for ages 0-17 years) Not on file 08/23/2023 Transportation Needs Answer Date Record ed READ ONLY Do you have troubl e getting a ride to medical visits or work? Never True 08/23/2023 Does your family have a hard time getting a ride to doctors visits? (Household - for ages 0-17 years) Not on file 08/23/2023 Has lack of transportation k ept you from medical appointments, meetings, work, or from getting things needed for daily living? Check all that apply. (Adult - for ages 18 years and over) Not on file 08/23/2023 Do you (or your family) have trouble finding or paying for a ride (transportation)? (Household - for ages 0-17 years) Not on file 08/23/2023 Housing Stability Answer Date Recorded Do you currently live in a s helter or have no steady place to sleep at night? No 08/23/2023 READ ONLY Do you think you a re at risk of becoming homeless? No 08/23/2023 Does your family worry about paying for your home or becoming homeless? (Household - for ages 0-17 years) Not on file 0 08/23/2023 Are you homeless or worried that you might be in the future? (Adult - for ages 18 years and over) Not on file Are you (or your family) jacky eless or worried that you might be in the future? (Household - for ages 0-17 years) Not on file Food Insecurity Answer Date Recorded Do you need food for this week? No 08/23/2023 Are you able to get enough f ood for your family? (Household - for ages 0-17 years) Not on file 08/23/2023 Does your family need food t his week? (Household - for ages 0-17 years) Not on file 08/23/2023 Do you always have enough fo od for your family? (Household - for ages 0-17 years) Not on file 08/23/2023 Food Insecurity Answer Date Recorded Within the past 12 months, y ou worried that your food would run out before you got the money to buy more. Never true 08/23/19 24 Within the past 12 months, t he food you bought just didn't last and you didn't have money to get more. Never true 08/23/2023 Do you need food for this week? 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 Answer Date of Assessment Author 11/01/2016 10:30 PM EDT Palak You RN * Are you blind or do you have serious difficulty seeing, even when wearing glasses? Answer Date of Assessment Author No 11/01/2016 10:30 PM EDT Palak You RN * Do you have serious difficulty walking or climbing stairs? (5 years old or older) Answer Date of Assessment Author No 11/01/2016 10:30 PM EDT Palak You RN * Do you have difficulty dressing or bathing? (5 years old or older) Answer Date of Assessment Author No 11/01/2016 10:30 PM EDT Palak You RN * Because of a physical, mental, or emotional condition, do you have difficulty doing errands alone such as visiting a doctor’s office or shopping? (15 years old or older) Answer Date of Assessment Author No 11/01/2016 10:30 PM EDT Palak You RN documented as of this encounter Mental Status * Because of a physical, mental, or emotional condition, do you have serious difficulty concentrating, remembering, or making decisions? (5 years old or older) Answer Entry Date Author No 11/01/2016 10:30 PM EDT Palak You RN documented in this encounter Miscellaneous Notes * Telephone Encounter - Irma Arce LPN - 07/02/2024 12:08 PM EST Patient is aware and will comply. Thank you * Telephone Encounter - Irma Arce LPN - 07/02/2024 12:06 PM EST ----- Message from Zafar Tinajero DO sent at 07/01/2024 2:40 PM EST ----- PSA has gone up. Potassium is up. Hgba1c is controlled. Repeat Potassium level this week Keep appointment with Urology on 07/03 documented in this encounter Plan of Treatment Upcoming Encounters Date Type Department Care Team (Late st Contact Info) Description 07/03/2024 11:45 AM EST Office Visit Urology, [facility] [address] [place] [address] Josh Savage MD [address] [place] [address] 08/06/2024 2:45 PM EDT Office Visit Ophthalmology, [facility] [address] [place] [address] Rohith Yap, DO [address] [facility] [place] [address] 09/05/2024 1:30 PM EDT Office Visit Allergy/Immunology [facility] [address] [place] [address] Dameon Vasquez MD [address] [facility] [place] [address] 09/19/2024 2:30 PM EDT Imaging Radiology [facility] [address] [place] [id number] 09/25/2024 2:20 PM EDT Office Visit Family Practice [facility] [address] [place] [address] Zafar Tinajero, DO [address] [place] [address] 10/15/2024 11:00 AM EDT Office Visit Cardiology, [facility] [address] [place] [address] Bakari Yu, DO [address] [place] [address] 12/04/2024 2:00 PM EDT Office Visit Podiatry [facility] [address] [place] [phone] Tayla Jen Mia, DPM [address] [place] [address] Scheduled Orders Name Type Priority Associated Diagnoses Orde r Schedule POTASSIUM Lab Routine Serum potassium elevated Expected: 07/03/2024 (Approximate), Expires: 07/02/2025 Health Maintenance Due Date Last Done Comments Adult Wellness Visit 10/23/2001 HbA1c 12/27/2024 06/29/2024, 03/09, 06/14/2023, Additional history exists Diabetic Eye Exam 03/08/2025 03/08/2024, , 07/26/2022, Additional history exists O2 ASSESSMENT COMPLETED IN PAST YEAR FOR COPD 03/23/2025 03/23/2024 Depression Screening 06/25/2025 06/25/2024 Diabetic Foot Exam 06/25/2025 06/25/2024, 0 06/14/2023, 06/22/2022, Additional history exists Albumin/Creatinine Ratio 06/29/2025 025, 03/23/2024, 06/14/2023, Additional history exists DTap/Tdap Vaccines (3 - Td or Tdap) 07/04/2030 07/04/2020, 10/04/2014, 12/24/2009, Additional history exists Alpha-1 Antitrypsin Completed 06/19/2021 Zoster Vaccines Completed 09/23/2021, 06/09, 05/21/2015 Influenza Vaccine (FLU shot) Completed 01/13/2024, 01/22/2023, 01/13/2022, Additional history exists COVID-19 Vaccine Discontinued 01/26/2024, , 02/24/2022, Additional history exists Pneumococcal Vaccine: 50+ Years Completed 01/26/2024, 02/14/2015, 06/16/2012, Additional history exists HPV (Gardasil) Vaccine Aged Out No lo nger eligible based on patient's age to complete this topic Hepatitis B Vaccine Aged Out No longe r eligible based on patient's age to complete this topic MENINGOCOCCAL (MENACTRA/MENVEO) Aged Out No longer eligible based on patient's age to complete this topic Meningitis B Vaccine (Bexsero/Trumemba) Aged Out No longer eligible based on patient's age to complete this topic documented as of this encounter Medical Devices Not on filedocumented as of this encounter Visit Diagnoses Diagnosis Generalized weakness- Primary Other malaise and fatigue Chronic diastolic heart failure (HCC) Chronic diastolic heart failure Coronary artery disease involving tolowa dee-ni' coronary artery of tolowa dee-ni' heart without angina pectoris Hypertensive heart disease with chronic diastolic congestive heart failure (HCC) COPD, group B, by GOLD 2017 classification (HCC) Nasal polyps Unspecified nasal polyp 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) Cellulitis of left lower extremity Cellulitis and abscess of leg, except foot Advanced care planning/counseling discussion- Primary Other specified counseling Chronic diastolic heart failure (HCC) Chronic diastolic heart failure Coronary artery disease involving tolowa dee-ni' coronary artery of tolowa dee-ni' heart without angina pectoris Hypertensive heart disease with chronic diastolic congestive heart failure (HCC) Nasal polyps Unspecified nasal polyp Cellulitis of left lower extremity Cellulitis and abscess of leg, except foot Hypertensive heart disease with chronic diastolic congestive heart failure (HCC)- Primary Controlled type 2 diabetes mellitus without complication, without long-term current use of insulin (HCC) COPD, group B, by GOLD 2017 classification (HCC) Bilateral exudative age-related macular degeneration, unspecified stage (HCC) Elevated prostate specific antigen (PSA) Advanced care planning/counseling discussion Other specified counseling Serum potassium elevated- Primary Hyperpotassemia documented in this encounter Advance Directives Documents on File Type Date Recorded Patient Production Weigher Expl anation MILES 12/09/2022 10:36 AM POL * Full Code (Latest Code Status on File) Date Activated Date Inactivated Comments 10/31/2016 7:04 PM 11/03/2016 4:05 PM This order r eflects the patients wishes and were consensually agreed upon. Question Answer Comments Discussion of Advance Direct isatu occurred with: Patient Does the patient have a Living Will? Yes, not cu rrently available Does the patient have Health Care Power of Financial Institution Branch Manager? Yes, in chart and reviewed as current * Full Code Date Activated Date Inactivated Comments 04/17/2012 11:51 AM 04/18/2012 1:47 PM Pt s/p DE S to LAD Question Answer Comments Discussion of Advance Directives occurred with: Not Discussed Does the patient have a Living Will? No Does the patient have Health Care Power of Attor tutu? No Healthcare Agents on File Name Relationship Healthcare Agent Relationshi p Communication Florencia Lindquist Adult Child Health Care Agen erich (per Health Care Power of Financial Institution Branch Manager document) [email or web address] Care Teams Electrical Instrumentation Technician Relationship Specialty Start Date End Date Zafar Tinajero DO [address] [place] [address] PCP - General Internal Medicine 12/27/23 documented as of this encounter
--- OUTSIDE RECORDS SUMMARY | 2024-08-10 07:23 | External Medical Summary ---
Author Name Unknown Address Unknown Organization [id number]:[facility] [place] - [address] [facility] [id number] Laboratory Report Ordering Provider Test Date Status JORDAN PORTER 06/29/2024 13:18:43 Final Observation Date Value Abnormality Reference (Units ) Status BUN 06/29/2024 13:18:43 21 Above high normal 6-20 (mg/dL) Final Creatinine 06/29/2024 13:18:43 0.8 0.6-1.2 (mg/dL) Final Glomerular filtration rate/1.73 sq M.predicted [Volume Rate/Area] in Serum, Plasma or Blood by Creatinine-based formula (CKD-EPI) 06/29/2024 13:18:43 84 >=60 (mL/min) Final eGFR is calculated based on the CKD-EPI 2020 equation. Sodium 06/29/2024 13:18:43 139 135-146 (m mol/L) Final Potassium 06/29/2024 13:18:43 5.4 Above high normal 3. 5-5.1 (mmol/L) Final Cl 06/29/2024 13:18:43 102 98-107 (mm ol/L) Final CO2 06/29/2024 13:18:43 26 22-32 (mmo l/L) Final Anion gap 06/29/2024 13:18:43 11 7-15 (mmol /L) Final Glucose 06/29/2024 13:18:43 86 70-120 (mg /dL) Final Albumin 06/29/2024 13:18:43 4.3 3.8-5.0 (g /dL) Final AST (Aspartate aminotransferase) 06/29/2024 13:18:43 20 10-50 (U/L) Fin al Alk Phos 06/29/2024 13:18:43 138 Above high normal 35 -130 (U/L) Final Bilirubin, Total 06/29/2024 13:18:43 0.7 <=1 .2 (mg/dL) Final Calcium 06/29/2024 13:18:43 9.1 8.4-10.2 ( mg/dL) Final Protein 06/29/2024 13:18:43 7.1 6.0-8.3 (g /dL) Final ALT (Alanine aminotransferase) 06/29/2024 13:18:43 16 10-50 (U/L) Mike rollins Performing Location [facility] [place] - [address] [facility] [id number]
--- OUTSIDE RECORDS SUMMARY | 2024-08-10 07:23 | External Medical Summary | Summary of Care ---
Author Name Unknown Organization [facility] Address [address] [place] [address] Phone [phone] Care Team Providers Care Machine Sander Name Role Phone German Tinajero DO Primary Care Provider [phone] Reason for Visit * Reason Comments Follow Up Encounter Details Date Type Department Care Team (Late st Contact Info) Description 07/03/2024 11:45 AM EST Office Visit Urology, [facility] [address] [facility] [place] [address] Josh Savage MD [address] [place] [address] Elevated prostate specific antigen (PSA)*; Hematuria, gross; BPH with obstruction/lower urinary tract symptoms Allergies Active Allergy Reactions Criticality Noted Date Comments Codeine Sulfate High 08/05/2010 Throat swelling Oxycodone-Acetaminophen 08/22/2023 documented as of this encounter (statuses as of 07/03/2024) Medications ASPIRIN 81 MG PO CHEWIndication s:INTERFACED RESULT take one tablet daily 30 Tab 11 04/18/20 12 Active PRESERVISION AREDS 2 PO CAPS Take 1 capsule by mouth twice daily Active Glucose Blood (ONETOUCH VERIO) STRP Test blood sugar twice times daily or as directed E11.9 200 Strip 3 11/05/19 20 Active Fluticasone-Sa lmeterol 250-50 MCG/ACT Inhalation Aerosol Powder Breath Activated (Advair Diskus) Inhale 1 Puff by mouth in the morning and 1 Puff before bedtime. 180 Each 2 08/25/19 24 Active Latanoprost 0.005 % Ophthalmic Solution (Xalatan)Indic ations:Other glaucoma of both eyes Instill 1 drop into both eyes once daily 2.5 mL 12 12/02/19 24 Active Fluticasone Propionate 50 MCG/ACT Nasal Suspension (Flonase)Indic ations:Nasal polyp Administer 2 Sprays into each nostril in the morning. 48 g 3 03/06/20 24 Active Atorvastatin Calcium 40 MG Oral Tablet (Lipitor)Indic ations:Dyslipi demia, goal LDL below 100 Take 1 Tablet by mouth daily. 90 Tablet 1 04/26/20 24 Active Lisinopril 10 MG Oral Tablet (Prinivil)Jazmin cations:HTN, goal below 140/90 Take 1 Tablet by mouth in the morning. 90 Tablet 1 04/26/20 24 Active amLODIPine Besylate 5 MG Oral Tablet (Norvasc) Take 1 Tablet by mouth in the morning. 90 Tablet 1 04/26/20 24 Active Dutasteride 0.5 MG Oral Capsule (Avodart) Take 1 Capsule by mouth in the morning. 90 Capsule 3 12/09/19 23 025 Discontinued Hospital, Clinic, or Other Facility Administered Medication Ordered Dose Route Frequency Start Date End Date Status Farjudahmab-svoa (Jodybyo) prefilled syringe inj 6 mgIndications:Exudative 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 with active choroidal neovascularization (HCC) 6 mg IZ PRN 04/25/2024 04/25/2025 Active documented as of this encounter (statuses as of 07/03/2024) Active Problems Problem Noted Date Diagnosed Date [...] in the Comments) Remote Patient Monitoring Vendor: [facility] Device(s): Connected Scale Self - Management Plan Other/Additional Comments: [...] Continue injections Coronary artery disease invo lving [place] coronary artery of [place] heart without angina pectoris 05/10/2018 Assessment & [...] Per Lipid Taxonomy. Controlled type 2 diabetes ish recinos without complication, without long-term current use of [...] as of this encounter (statuses as of 07/03/2024) Resolved Problems Problem Noted Date Diagnosed Date [...] canal 08/24/2012 12/07/2016 Otitis externa, chronic 08/24/201207/08 ResolSensorWave Integrity Clinical Trial [id number] 05/18/2012 05/16/2013 Overview: Renamed per the Centers for Medicare and Medicaid billing requirements to include Clinical Trial.gov number. ResolSensorWave Integrity Clinical Trial [id number] 05/18/2012 04/01/2014 Overview: Renamed per the Centers for Medicare and Medicaid billing requirements to include Clinical Trial.gov number. [employer] Other*[id number] 04/17/2012 06/15/2016 Overview (04/17/2012): Study Title: Genomic Markers for Patients with Cardiovascular Disease Project # [id number] Routing Equipment Tender: Jennifer Xiong MD [phone] HTN, GOAL BELOW 140/80 12/27/201108/13 Overview: Per [...] as of this encounter (statuses as of 07/03/2024) Immunizations Name Administration Dates Next Due COVID-19 [...] (Prevnar) 02/14/2015 Pneumococcal Conjugate Vacci ne, 20-valent ([id number]) 01/26/2024 Pneumococcal Polysaccharide PPV23 (Pneumovax) 06/16/2012 RSV [...] No 08/23/2023 Does the household have a re gular source of income? (Household - for ages [...] Entry Date Author No 11/01/2016 10:30 PM ALLYSONT Palak You RN documented in this encounter Progress Notes * Josh Savage MD - 07/03/2024 11:45 AM EST [id number] PCP: [place] [address] [phone] Star Sepulveda is a 88 year old male, who presents for six-month follow-up of his history of an elevated PSA and BPH. Past difficulties with gynecomastia are appreciated. History of lung canceris noted. Patient's PSA is noted to have risen since his last value. He notes gynecomastia on meds,has not taken since his last visit. Elevated PSA: Patient is being seen for evaluation of an elevated PSA. Previous evaluation includes prostate biopsy by Dr. Leroy. Patient has been on finasteride, tolerated. He was switched to dutasteride May 2022. Nosebleed reported on tamsulosin. He reports incomplete emptying. Cysto May 2022 shows BPH with large median lobe. PSA Results: Lab Results Component Value Date/Time PSA - [facility] 10.99 (H) 06/29/2024 01:18 PM PSA - [facility] 7.52 (H) 12/19/2023 03:53 PM PSA - [facility] 4.31 (H) 06/14/2023 03:20 PM PSA - [facility] 15.17 (H) 12/01/2017 08:16 AM PSA - [facility] 9.61 (H) 12/01/2016 11:04 AM PSA - [facility] 7.01 (H) 08/30/2013 08:27 AM PSA SCREENING 3.53 09/28/2010 11:25 AM PSA SCREENING 3.24 10/02/2009 03:20 PM PSA SCREENING 2.80 10/22/2008 09:34 AM Current Outpatient Medications Medication Sig Dispense Refill ASPIRIN 81 MG PO CHEW take one tablet daily 30 Tab 11 PRESERVISION AREDS 2 PO CAPS Take 1 capsule by mouth twice daily Glucose Blood (FosburyUCH VERIO) STRP Test blood sugar twice times daily or as directed E11.9 200 Strip 3 Dutasteride 0.5 MG Oral Capsule (Avodart) Take 1 Capsule by mouth in the morning. 90 Capsule 3 Fluticasone-Salmeterol 250-50 MCG/ACT Inhalation Aerosol Powder Breath Activated (Advair Diskus) Inhale 1 Puff by mouth in the morning and 1 Puff before bedtime. 180 Each 2 Latanoprost 0.005 % Ophthalmic Solution (Xalatan) Instill 1 drop into both eyes once daily 2.5 mL 12 Fluticasone Propionate 50 MCG/ACT Nasal Suspension (Flonase) Administer 2 Sprays into each nostril in the morning. 48 g 3 Atorvastatin Calcium 40 MG Oral Tablet (Lipitor) Take 1 Tablet by mouth daily. 90 Tablet 1 Lisinopril 10 MG Oral Tablet (Prinivil) Take 1 Tablet by mouth in the morning. 90 Tablet 1 amLODIPine Besylate 5 MG Oral Tablet (Norvasc) Take 1 Tablet by mouth in the morning. 90 Tablet 1 Current Facility-Administered Medications Medication Dose Route Frequency Provider Last Rate Last Admin Faricimab-svoa (Kybysmo) prefilled syringe inj 6 mg 6 mg Intravitreal PRN 6 mg at 06/15/24 8325 Review of patient's allergies indicates: Allergen Reactions Codeine Sulfate Throat swelling Oxycodone-Acetaminophen Social History: Social History Tobacco Use Smoking status: Former Current packs/day: 0.00 Average packs/day: 0.5 packs/day for 5.0 years (2.5 ttl pk-yrs) Types: Cigarettes Start date: 05/09/1974 Quit date: 05/09/1979 Years since quittin.1 Passive exposure: Past Smokeless tobacco: Never Tobacco comments: No passive smoke exposures Substance Use Topics Alcohol use: Not Currently Comment: rare glass of wine or beer/socially Vaping/E-Cigarette Use Vaping/E-Cigarette Use Never User Vaping/E-Cigarette Substances Nicotine No Other No Flavoring No THC No Cannabidiol (CBD) No Vaping/E-Cigarette Devices Disposable No Pre-filled or Refillable Cartridge No Refillable Tank No Pre-filled Pod No Family History Problem Relation Name Age of Onset Heart Disorder Mother age 86-heart dx; had had longstanding arthritis Allergies Mother History of nasal polyps Heart Disorder Sister heart surgery-valve replacement -age 70 Cancer Brother half-brother- uncertain type cancer-possibly brain tumor- in his 60's Cancer Brother dominictto Diabetes Father onset age 75- age 93 No Known Problems Sister No Known Problems Sister Past Surgical History: Procedure Laterality Date COLONOSCOPY W/ BIOPSY (RECTUM) 12/14/2006 Tubular adenoma polyp of colon (2) ; repeat in 5 years COLONOSCOPY, DIAGNOSTIC (RECTUM) 08/1998 Negative for polyps COLONOSCOPY, DIAGNOSTIC (RECTUM) 04/08/2015 COLONOSCOPY FLEXIBLE PROXIMAL DIAGNOSTIC performed by Peña Moss MD at ENDOSCOPY [facility] COLONOSCOPY, DIAGNOSTIC (RECTUM) N/A 02/26/2020 COLONOSCOPY FLEXIBLE PROXIMAL DIAGNOSTIC performed by Yovani Saldivar MD at ENDOSCOPY [facility] COLONOSCOPY, REMOVE LESION 12/2003 tubular adenoma transverse colon-repeat in 3 years COLORECTAL CANCER SCREEN; COLON 01/20/2009 repeat in 5 years CORONARY ANGIOGRAPHY W/LEFT HEART CATH 04/17/2012 CORONARY ANGIOGRAPHY W/LEFT HEART CATH performed by Jennifer Xiong MD at CARDIAC LABS [facility] CYSTOSCOPY 02/2005 Dr. Leroy- benign, enlarged prostate EGD, FLEXIBLE, DIAGNOSTIC N/A 02/26/2020 ESOPHAGOGASTRODUODENOSCOPY (EGD), FLEXIBLE, TRANSORAL, DIAGNOSTIC performed by Yovani Saldivar MD atENDOSCOPY [facility] EXPLORE, TREAT ANKLE JOINT 07/2005 ORIF fracture left leg/ankle- Dr. Mckenzie INJECTION OF EYE DRUG Right 04/10/2014 # 1 Eylea OD, Dr. Yap INJECTION OF EYE DRUG Right 05/06/2014 #2 Eylea OD, Dr. Yap INJECTION OF EYE DRUG Right 06/06/2014 # 3 Eylea OD, INJECTION OF EYE DRUG Right 07/09/2014 #4 Eylea OD, Dr. Yap INJECTION OF EYE DRUG Right 08/09/2014 # 5 EYLEA OD, Dr. Yap INJECTION OF EYE DRUG Right 09/06/2014 # 6 Eylea OD, INJECTION OF EYE DRUG Left 09/01/2016 # 1 Eylea OS, Dr Fracisco DO INJECTION OF EYE DRUG Left 10/06/2016 # 2 Eylea OS, INJECTION OF EYE DRUG Left 11/18/2016 # 3 Eylea OS, INJECTION OF EYE DRUG Left 12/30/2016 # 4 Eylea OS, INJECTION OF EYE DRUG Left 01/27/2017 # 5 Eylea OS, INJECTION OF EYE DRUG Left 03/03/2017 # 6 Eylea OS, Dr. Yap INJECTION OF EYE DRUG Left 04/05/2017 # 7 Eylea OS; Dr. Yap INJECTION OF EYE DRUG Left 05/20/2017 # 8 Eylea OS, INJECTION OF EYE DRUG Left 06/28/2017 # 9 Eylea OS, Dr. Yap INJECTION OF EYE DRUG Left 08/04/2017 # 10 Eylea OS, Dr. Yap INJECTION OF EYE DRUG Left 09/14/2017 # 1 Lucentis 0.5mg OS, Dr. Yap INJECTION OF EYE DRUG Left 10/20/2017 # 2 Lucentis 0.5mg OS, Dr. Yap INJECTION OF EYE DRUG Left 11/30/2017 # 11 Eylea OS, Dr. Yap INJECTION OF EYE DRUG Left 01/04/2018 # 12 Eylea OS, Dr. Yap INJECTION OF EYE DRUG Left 02/08/2018 # 13 Eylea OS, INJECTION OF EYE DRUG Left 03/22/2018 # 14 Eylea OS; Dr. Yap INJECTION OF EYE DRUG Left 04/28/2018 # 15 Eylea OS, Dr. Yap INJECTION OF EYE DRUG Left 06/15/2018 # 16 Eylea OS, INJECTION OF EYE DRUG Left 07/26/2018 # 17 Eylea OS, Dr. Yap INJECTION OF EYE DRUG Left 09/06/2018 # 18 Eylea OS, Dr. Yap INJECTION OF EYE DRUG Left 10/18/2018 # 19 Eylea OS, Dr. Yap INJECTION OF EYE DRUG Left 11/29/2018 # 20 Eylea OS, INJECTION OF EYE DRUG Left 01/10/2019 # 21 Eylea OS, INJECTION OF EYE DRUG Left 02/21/2019 # 22 Eylea OS, Dr. Yap INJECTION OF EYE DRUG Left 04/11/2019 # 23 Eylea OS, Dr. Yap INJECTION OF EYE DRUG Left 05/23/2019 # 24 Eylea OS, Dr. Yap INJECTION OF EYE DRUG Left 07/04/2019 # 25 Eylea OS, INJECTION OF EYE DRUG Left 08/08/2019 # 3 Lucentis 0.5mg OS, Dr. Yap INJECTION OF EYE DRUG Left 09/20/2019 # 26 Eylea OS, Dr. Yap INJECTION OF EYE DRUG Left 10/18/2019 # 27 Eylea OS, Dr. Yap INJECTION OF EYE DRUG Left 11/29/2019 # 28 Eylea OS, Dr. Yap INJECTION OF EYE DRUG Left 01/08/2020 # 29 Eylea OS, Dr. Yap INJECTION OF EYE DRUG Left 02/12/2020 # 30 Eylea OS, Dr. Yap INJECTION OF EYE DRUG Left 03/25/2020 # 31 Eylea OS, INJECTION OF EYE DRUG Left 04/30/2020 # 32 Eylea OS, Dr. Yap INJECTION OF EYE DRUG Left 06/11/2020 # 33 Eylea OS, Dr. Yap INJECTION OF EYE DRUG Left 07/16/2020 # 34 Eylea OS; Dr. Yap INJECTION OF EYE DRUG Left 08/21/2020 # 35 Eylea OS, INJECTION OF EYE DRUG Left 10/02/2020 # 36 Eylea OS, Dr. Yap INJECTION OF EYE DRUG Left 11/19/2020 # 37 Eylea OS, INJECTION OF EYE DRUG Left 12/31/2020 #38 Eylea OS, Dr. Yap INJECTION OF EYE DRUG Left 03/23/2021 # 40 Eylea OS, Dr. Yap INJECTION OF EYE DRUG Left 04/27/2021 # 41 Eylea OS, Dr. Yap INJECTION OF EYE DRUG Left 06/05/2021 # 42 Eylea OS, Dr. Yap INJECTION OF EYE DRUG Left 07/10/2021 # 43 Eylea OS, Dr. Yap INJECTION OF EYE DRUG Left 08/24/2021 # 44 Eylea OS, Dr. Yap INJECTION OF EYE DRUG Left 10/12/2021 # 45 Eylea OS, Dr. Yap INJECTION OF EYE DRUG Left 11/30/2021 # 46 Eylea OS, Dr. Yap INJECTION OF EYE DRUG Left 01/01/2022 # 47 Eylea OS, Dr. Yap INJECTION OF EYE DRUG Left 02/16/2022 # 48 Eylea OS, Dr. Yap INJECTION OF EYE DRUG Left 04/07/2022 #49 Eylea OS Fracisco INJECTION OF EYE DRUG Left 05/24/2022 # 50 Eylea OS, Dr. Yap INJECTION OF EYE DRUG Left 07/26/2022 # 51 Eylea OS, Dr. Yap INJECTION OF EYE DRUG Left 11/04/2022 #52 Eylea OS; Dr Yap INJECTION OF EYE DRUG Left 01/20/2023 # 53 Eylea OS, Dr. Yap INJECTION OF EYE DRUG Left 03/03/2023 #1 Avastin OS; Gaby Taylor INJECTION OF EYE DRUG Left 04/07/2023 # 2 Avastin OS, Dr. Yap INJECTION OF EYE DRUG Left 05/19/2023 # 3 Avastin OS, Dr. Yap INJECTION OF EYE DRUG Left 06/24/2023 #1 vABYSMO OS; DR YAP INJECTION OF EYE DRUG Left 08/22/2023 #2 Vabysmo OS; Dr Yap INJECTION OF EYE DRUG Left 10/14/2023 #3 Vabysmo OS, Dr. Yap INJECTION OF EYE DRUG Left 12/02/2023 #[address] Yap INJECTION OF EYE DRUG Left 01/18/2024 #5 Vabysmo OS, Dr. Yap INJECTION OF EYE DRUG Left 03/08/2024 # 6 Vabysmo OS, Dr. Yap INJECTION OF EYE DRUG Left 04/25/2024 # 7 Vabysmo OS, Dr. Yap INJECTION OF EYE DRUG Left 06/15/2024 #8 Vabysmo OS, Dr. Yap INTRAVASCULAR STENT, OPEN, FIRST VESSEL 04/17/2012 mid LAD Resolute drug eluting stent- Dr. Xiong IR BIOPSY 10/13/2023 LASERING OF SECONDARY CATARACT Right OD Dr. Pemberton MISCELLANEOUS ORDER ([facility] ONLY) 01/02/2009 Excision epidermoid cyst groin Dr. Limon MISCELLANEOUS ORDER ([facility] ONLY) Right 04/10/2014-04/10/2015 EYLEA OD CONSENT SIGNED, Dr. Fracisco BIANCHI ORDER ([facility] ONLY) Left 09/01/2016-09/01/2017 Eylea OS Consent signed, Dr Fracisco BIANCHI ORDER ([facility] ONLY) Left 09/14/2017-09/14/2018 Lucentis 0.5mg OS consent signed, Dr. Fracisco BIANCHI ORDER ([facility] ONLY) Left 11/30/2017-11/30/2018 Eylea OS consent signed, Dr. Fracisco BIANCHI ORDER ([facility] ONLY) ACT 112 signed, 07/26/2018 MISCELLANEOUS ORDER ([facility] ONLY) Left 11/29/2018-11/30/2019 EYLEA CONSENT OS SIGNED; DR FRACISCO BIANCHI ORDER ([facility] ONLY) Left 08/08/2019-08/07/2020 LUCENTIS 0.5MG OS CONSENT SIGNED; DR FRACISCO ROBLESANEOUS ORDER ([facility] ONLY) Left 11/29/2019-11/28/2020 EYLEA OS CONSENT SIGNED, Dr. Yap NASAL/SINUS ENDOSCOPY, SURGICAL 2001 OTHER Left Eylea OS Consent signed, /Sanket 12/31/2020-12/31/2021 OTHER (INFORMATION) Left 02/06/2021 # 39 Eylea OS, Dr. Yap OTHER (INFORMATION) Bilateral EYLEA OU CONSENT DR. YAP/SANKET EXP. 01/01/23 OTHER (INFORMATION) EYLEA OU CONSENT SIGNED Dr. Yap (EXP 01-21-24) OTHER (INFORMATION) Avastin OU Consent Signed EXP03/03/24; Dr Yap/sanket OTHER (INFORMATION) CONSENT OU VBYSMO EXP 06/24/24; DR YAP/SANKET REMOVE CATARACT, INSERT LENS PROSTH Bilateral OU-Dr. 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 DM type 2, not at goal ([facility]) Dyslipidemia, goal LDL below 100 04/17/2009 Per Lipid Taxonomy. ELEVATED PROSTATE SPECIFIC ANTIGEN 03/06/1999 Esophageal reflux 08/24/2012 Excessive cerumen in ear canal 08/24/2012 [employer] Other*[id number] 04/17/2012 Study Title: Genomic Markers for Patients with Cardiovascular Disease Project # [id number] PrincipalInvestigator: Jennifer Xiong MD [phone] GLAUCOMA NEC 08/09/1999 HTN, goal below 140/80 12/27/2011 Per HTN Protocol #27. Hx of corneal abrasion LIPOMA SKIN NEC 05/13/2003 Lung nodule Macular degeneration 04/10/2014 OD wet Eylea injections started, Dr. Yap NASAL POLYP NOS 11/22/2001 Nasal polyps 08/24/2012 Otitis externa, chronic 08/24/2012 Prediabetes 10/18/2023 Presence of drug coated stent in LAD coronary artery 04/19/2012 Resolute Integrity Clinical Trial [id number] 05/18/2012 Renamed per the Centers for Medicare and Medicaid billing requirements to include Clinical Trial.gov number. Seasonal allergies Sensorineural hearing loss, bilateral 08/24/2012 Sleep-disordered breathing 08/24/2012 Smell and taste disorder 02/07/2013 Snoring disorder 08/24/2012 Type 2 diabetes mellitus with hemoglobin A1c goal of less than 7.0% ([facility]) 03/06/2009 Per Diabetes Taxonomy. 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 Constitutional: General: He is not in acute distress. Appearance: He is not toxic-appearing. HENT: Head: Normocephalic. Right Ear: External ear normal. Left Ear: External ear normal. Nose: Nose normal. Mouth/Throat: Mouth: Mucous membranes are moist. Cardiovascular: Pulses: Normal pulses. Pulmonary: Effort: Pulmonary effort is normal. No respiratory distress. Abdominal: General: There is no distension. Skin: Coloration: Skin is not pale. Neurological: Mental Status: He is oriented to person, place, and time. Motor: Weakness present. Psychiatric: Behavior: Behavior normal. Thought Content: Thought content normal. Impression/Plan: 88 yo male with BPH. Patient denies bother without medication - offered return to finasteride, wishes to avoid medication if possible due to previous side effects. He notes he has a supply of dutasteride, wishes to use every 2-3 days. Will see in 6 months to check on progress. Above content is personally reviewed. Josh Savage MD 7:53 AM 07/03/2024 documented in this encounter Nursing Notes * Lynda Richard LPN - 07/03/2024 11:44 AM EST 6 month ret. Taking dutasteride PRN. Patient presents alone. No complaints. PSA Results: Lab Results Component Value Date/Time PSA - [facility] 10.99 (H) 06/29/2024 01:18 PM PSA - [facility] 7.52 (H) 12/19/2023 03:53 PM PSA - [facility] 4.31 (H) 06/14/2023 03:20 PM PSA - [facility] 15.17 (H) 12/01/2017 08:16 AM PSA - [facility] 9.61 (H) 12/01/2016 11:04 AM PSA - [facility] 7.01 (H) 08/30/2013 08:27 AM PSA SCREENING 3.53 09/28/2010 11:25 AM PSA SCREENING 3.24 10/02/2009 03:20 PM PSA SCREENING 2.80 10/22/2008 09:34 AM documented in this encounter Plan of Treatment Upcoming Encounters Date Type Department Care Team (Late st Contact Info) Description 08/06/2024 2:45 PM EDT Office Visit Ophthalmology, [facility] [address] [place] [address] Rohith Yap DO [address] [place] [address] 09/05/2024 1:30 PM EDT Office Visit Allergy/Immunology [facility] [place] [address] [place] [address] Dameon Vasquez MD [address] [facility] [place] [address] 09/19/2024 2:30 PM EDT Imaging Radiology [facility] [address] [facility] [address] [place] [id number] 09/25/2024 2:20 PM EDT Office Visit Family Practice [address] [facility], [place] [address] [place] [address] German Tinajero, DO [address] [place] [address] 10/15/2024 11:00 AM EDT Office Visit Cardiology, [facility] [address] [facility] [place] [address] Bakari Yu, DO [address] [facility] [place] [address] 12/04/2024 2:00 PM EDT Office Visit [facility]iatry [facility] [address] [facility] [place] [phone] Jen Bourne, THOMAS [address] [facility] [place] [address] 12/19/2024 2:45 PM EDT Office Visit Urology, [facility] [address] [facility] [place] [address] Josh Savage MD [address] [place] [address] Scheduled Orders Name Type Priority Associated Diagnoses Orde r Schedule PSA Lab Routine Elevated prostate specific antigen (PSA) Expected: 12/31/2024 (Approximate), Expires: 07/03/2025 Health Maintenance Due Date Last Done Comments [...] diastolic heart failure Coronary artery disease involving [place] coronary artery of [place] heart without angina pectoris Hypertensive heart disease [...] diastolic heart failure Coronary artery disease involving [place] coronary artery of [place] heart without angina pectoris Hypertensive heart disease [...] Advanced care planning/counseling discussion Other specified counseling Elevated prostate specific antigen (PSA)- Primary Hematuria, gross Gross hematuria BPH with obstruction/lower urinary tract symptoms Hypertrophy of prostate with urinary obstruction and other lower urinary tract symptoms (LUTS) documented in this encounter Advance Directives Documents on File Type Date Recorded Patient Service Porter Expl anation POLST 12/09/2022 10:36 AM POLST * Full Code (Latest Code Status on File) Date Activated Date Inactivated Comments 10/31/2016 7:04 PM 11/03/2016 4:05 PM This order r eflects the patients wishes and were consensually agreed upon. Question Answer Comments Discussion of Advance Direct isatu occurred with: Patient Does the patient have a Living Will? Yes, not cu rrently available Does the patient have Health Care Power of [place] Bon[place]? Yes, in chart and reviewed as current [...] Agents on File Name Relationship Healthcare Agent [facility] p Communication Florencia Lindquist Adult Child Health Care Grey t (per Health Care Power of [place]er document) [email or web address] Care Teams Machine Sander Relationship Specialty Start Date End Date German Tinajero DO [address] [facility] [place] [address] PCP - General Internal Medicine 12/27/23 documented as of this encounter
--- OUTSIDE RECORDS SUMMARY | 2024-08-10 07:23 | External Medical Summary ---
Author Name Unknown Address Unknown Organization K01:LABORATORY [facility] [place] - [address] [place] [address] Laboratory Report Ordering Provider Test Date Status JORDAN PORTER 06/29/2024 13:22:27 Final Normal: <30 mg/g creatinine< br/>High: 30-300 mg/g creatinine
Very High: >300 mg/g creatinine
Nephrotic: >2200 mg/g creatinine Observation Date Value Abnormality Reference (Units) Status Albumin, Urine 06/29/2024 13:22:27 <1.20 (mg/dL) Final Creatinine, Urine 06/29/2024 13:22:27 28 (mg/dL) Final ALBUMIN/CREATININE RATIO, HIDE 06/29/2024 13:22:27 Uninterpretable Albumin/Creatinine ratio due to very low albumin and creatinine values. <30 (mg/g Creat) Final Performing Location LABORATORY [facility] [place] - [address] [place] [id number]
--- OUTSIDE RECORDS SUMMARY | 2024-08-10 07:23 | External Medical Summary ---
Author Name Unknown Address Unknown Organization [id number]:LABORATORY [facility] [place] - [address] [facility] [address] Laboratory Report Ordering Provider Test Date Status JORDAN PORTER 06/29/2024 13:18:43 Final Observation Date Value Abnormality Reference (Units ) Status Triglyceride 06/29/2024 13:18:43 50 <=174 ( mg/dL) Final Triglyceride Reference Range s (mg/dL):
<150 Acceptable
150-174 Borderline high
175-499 High
>=500 Very high Cholesterol 06/29/2024 13:18:43 119 <200 (mg /dL) Final Total Cholesterol Reference Ranges (mg/dL):
<200 Desirable
200-239 Borderline high
>=240 High HDL 06/29/2024 13:18:43 51 >39 (mg/dL ) Final HDL Cholesterol Reference Ra nges (mg/dL):
>=60 High (Desirable)
<50 Low (Undesirable) For Females
<40 Low (Undesirable) For Males NON-HDL CHOLESTEROL 06/29/2024 13:18:43 68 <=159 (mg/dL) Final Non-HDL Cholesterol Referenc e Range (mg/dL):
<100 Target level for high risk ASCVD patient
<130 Optimal for general population
130-159 Near optimal for general population
160-189 Borderline High
190-219 High
>=220 Very High LDL, (calculated) 06/29/2024 13:18:43 58 <= 129 (mg/dL) Final LDL Cholesterol Reference Ra nges (mg/dL):
<70 Target level for high risk ASCVD patient
<100 Optimal for general population
100-129 Near optimal for general population
130-159 Borderline high
160-189 High
>=190 Very high Performing Location LABORATORY [facility] [place] - [address] [facility] [address]
--- OUTSIDE RECORDS SUMMARY | 2024-08-10 07:23 | External Medical Summary ---
Author Name Unknown Address Unknown Organization K01:LABORATORY [facility] [place] - [address] [facility] [address] Laboratory Report Ordering Provider Test Date Status JORDAN PORTER 06/29/2024 13:18:43 Final Observation Date Value Abnormality Reference (Units ) Status HbA1C 06/29/2024 13:18:43 6.2 Above high normal 4. 0-5.6 (%) Final The use of HbA1c to monitor glycemic status is based on normal hemoglobin and HbA composition. This test should not be used in patients with abnormal hemoglobin that affects the half life of the red blood cell or the in vivo glycation rates. Glucose, estimated average 06/29/2024 13:18:43 131 Above high normal <126 (mg/dL) Mike rollins Performing Location LABORATORY [facility] [place] - [address] [facility] [address]
--- OUTSIDE RECORDS SUMMARY | 2024-08-10 07:23 | External Medical Summary | Summary of Care ---
Author Name Unknown Organization [facility] Address [address] [place] [address] Phone [phone] Care Team Providers Care Welfare Visitor Name Role Phone Zafar Tinajero DO Primary Care Provider [phone] Reason for Visit * Reason Comments Follow Up * Precert (Within 10 days (routine)) - Authorized Specialty Diagnoses / Procedures Referred By Abigail jung Referred To Contact Ophthalmology Diagnoses Exudative age-related macular degeneration, left eye, with inactive choroidal neovascularization (HCC) Procedures NH INJECTION, FARICIMAB-SVOA, 0.1 MG NH INTRAVITREAL NJX PHARMACOLOGIC AGT SPX Rohith Yap DO [address] [facility] [place] [address] Phone: tel: fax: Ophthalmology, [facility] [address] [facility] [address] Phone: tel: fax: Referral ID Status Reason Start Date Expiration Date V isits Requested Visits Authorized [id number] Authorized Precert 05/20/2023 05/08/2099 [id number] Encounter Details Date Type Department Care Team (Late st Contact Info) Description 08/06/2024 2:45 PM EDT Office Visit Ophthalmology, [facility] [address] [facility] [place] [address] Bobbitennille Rolfxavi Jung, DO [address] [place] [address] Exudative 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 with active choroidal neovascularization (HCC)* Allergies Active Allergy Reactions Criticality Noted Date Comments Codeine Sulfate High 08/05/2010 Throat swelling Oxycodone-Acetaminophen 08/22/2023 documented as of this encounter (statuses as of 08/07/2024) Medications ASPIRIN 81 MG PO CHEWIndications :INTERFACED RESULT take one tablet daily 30 Tab 11 2 Active PRESERVISION AREDS 2 PO CAPS Take 1 capsule by mouth twice daily Active Glucose Blood (Suzerein SolutionsUCH VERIO) STRP Test blood sugar twice times daily or as directed E11.9 200 Strip 3 0 Active Fluticasone-Irwin meterol 250-50 MCG/ACT Inhalation Aerosol [...] Route Frequency Start Date End Date Status Faricimab-svoa (Vabysmo) prefilled syringe inj 6 mgIndications:Exudative 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 with active choroidal neovascularization (HCC) 6 mg IZ PRN 04/25/2024 04/25/2025 Active ROPivacaine (Naropin) inj 1.5 mgIndications:Exudative 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 with active choroidal neovascularization (HCC) 1.5 mg IJ PRN 08/06/2024 08/06/2025 Active documented as of this encounter (statuses as of 08/07/2024) Active Problems Problem Noted Date Diagnosed Date [...] in the Comments) Remote Patient Monitoring Vendor: [facility] Device(s): Connected Scale Self - Management Plan [...] Continue injections 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 [employer] Clinical Trial [id number] 05/18/2012 04/01/2014 Overview: Renamed per the Centers for Medicare and Medicaid billing requirements to include Clinical Trial.gov number. [employer] Other*[id number] 04/17/2012 06/15/2016 Overview (04/17/2012): Study Title: Genomic Markers for Patients with Cardiovascular Disease Project # [id number] Talent Assistant: Jennifer Xiong MD [phone] HTN, GOAL BELOW 140/80 12/27/201108/13 Overview: Per [...] as of this encounter (statuses as of 08/07/2024) Immunizations Name Administration Dates Next Due COVID-19 [...] (Prevnar) 02/14/2015 Pneumococcal Conjugate Vacci ne, 20-valent ([id number]) 01/26/2024 Pneumococcal Polysaccharide PPV23 (Pneumovax) 06/16/2012 RSV [...] Assessment Author No 11/01/2016 10:30 PM EDT Plaak You RN * Do you have serious [...] documented in this encounter Progress Notes * Rohith Yap, - 08/06/2024 2:45 PM EDT [facility] [place] Nursing Notes: Jennifer Callaway, MANSI 08/06/24 1453 Signed Star Sepulveda is a 88 year old year old male who presents for AMD OU. Last Office Visit: 06/15/2024 (in office), Visit date not found (telemedicine) Patient currently states no change in vision. Are you diabetic? No Do you drive? no OCT image(s) of left eye acquired and filed/scanned into chart. Base Eye Exam Visual Acuity (Snellen - Linear) Right Left Dist sc 20/800 20/200 -2 Dist ph sc NI NI Eccentric Tonometry (Tonopen, 2:52 PM) Right Left Pressure 21 22 Pupils Dark Shape React APD Right 1.5 Round Minimal None Left 1.5 Round Minimal None Visual Galvez (Counting fingers) Right Left Full Full Extraocular Movement Right Left Full, Ortho Full, Ortho Neuro/Psych Oriented x3: Yes Mood/Affect: Normal Dilation Both eyes: 0.5% Proparacaine @ 2:49 PM Dilation #2 Left eye: 1.0% Mydriacyl, 2.5% Phenylephrine @ 2:51 PM Dilation Comments Patient cautioned that effects of dilation may last 2-7 hours dependant upon individual reaction. It was discussed that driving while dilated is not recommended. EXTERNAL: The ocular adnexae are unremarkable. SLE: Lids/Lashes: wnl OU Conjunctiva/Sclera: quiet OU Cornea: +central corneal scar OD; clear OS Anterior Chamber: deep and quiet OU Iris: normal OU; no NVI OU Lens: PCIOL OU s/p yag cap OU Dilated fundus exam OD: 11/04/2022 vitreous: clear w/ pvd optic nerve: 0.6, no edema/pallor/NVD macula: +pig changes and srfibrosis vessels: wnl midperiphery: wnl periphery: no RT/RD Dilated fundus exam OS: vitreous: clear w/ pvd optic nerve: 0.6, no edema/pallor/NVD macula: rpe mottling, heme-improved vessels: wnl midperiphery: wnl periphery: no RT/RD OCT Interpretation: OD: 11/04/2022: +ERM, +SRmounding - no sig change OS: +ERM, +drusen, +PED w/ resolved chronic SRFLUID - STABLE, prior STABLE, prior STABLE, prior no sig change, prior STABLE, prior STABLE, prior STABLE, prior STABLE, prior STABLE, prior no change, prior STABLE, prior improved 148um, prior mildly improved, prior no change, prior improved, prior STABLE, prior STABLE, prior STABLE, prior improved, prior worse 51um, prior worse 98um, prior worse 54um centrally improved superiorly, prior improved, prior improved, prior STABLE A/P: 1. Age-Related Macular Degeneration OU OD: wet -s/p Eylea (09/06/14, 08/09/14, 07/09/14, 06/06/14, 05/06/14, 04/10/14) - >6 years since last injection - VA on presentation 20/400 -VA CF range even after monthly injections and dry OCT -no benefit to further injections at this time OS: wet - s/p Lucentis (10-20-17, 09-14-17) - s/p Eylea (05-23-20, 19, --19, --19, --19, --19, --19, --19, --19, 04-28-18, 02/08/18, 01/04/18...--18, -20-18, 05-20-18, 04-05-17, 03/03/17, 01-27-17, 12-30-17, 11-18-17, 10-06-17, 09/01/16) -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 no matter which anti-VEGF used, persistent ongoing srfluid - Lucentis (08-08-19) - Eylea (01/20/23, 11/04/22-Fresh heme 11/04/2022 , 07/26/22, 05/24/22, 04/07/22, 01/01/22, 11/30/21, 10/12/21, 08/24/21, 07/10/21, 06/05/21, 04/27/21, 03/23/21, 02/06/21, 12-31-21, 11-19-, 10/02/20, 08-21-21, --21, --21, 04-30-20, 03-25-20, --20, 01/08/20, 11-28-20, 10-17-20, 09-19-20)--improved - worse at 12 weeks; good in past at 15 weeks -Avastin 05/19/23, 04/07/23, 03/03/23 -Vabysmo 06/15/24, 04/25/24, 03/08/24, 01/18/24, 12/02/23, 10/14/23, 08/22/23, 06/24/2023 -7.2 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 DM2 -No retinopathy, no clinically significant macular edema OU -recommend HgbA1C <7, BP and lipid control. 3. Glaucoma OU -new rx for latanoprost qhs OU sent 12/02/2023 4. Pseudophakia OU -stable by Dr. Pemberton -submitted DL-13 07/16/20 F/u 6-8 weeks - dilate and OCT OS Rohith Yap DO CC: Migue Jean, OD PCP: Zafar Tinajero DO TIMEOUT PROCEDURE: correct patient identity-YES correct procedure and consent-YES verified side and site-YES correct patient position-YES all necessary equipment/prior studies present-YES reviewed special requirements of this patient-YES PROCEDURE: Intravitreal injection of Vabysmo (faricimab) 6mg OS INFORMED CONSENT: Risks, benefits and alternatives have been discussed with the patient. Risks include, but are not limited to: retinal tears, detachments, hemorrhage, glaucoma, infection, cataracts, need for more procedures and the potential risk of arterial thromboembolic events following use of intravitreal VEGF inhibitors defined as nonfatal stroke, nonfatal myocardial infarction or vascular . Patient is aware of these risks and consents to the procedure. DESCRIPTION OF PROCEDURE: The procedure site was confirmed. Topical proparacaine was applied to the surface of the eye after which subconjunctival anesthetic was administered. The area was prepped in the standard aseptic manner with 5% Betadine solution. An eyelid speculum was placed and 6mg (0.05 ml) of Vabysmo was injected 3.75 mm posterior to the limbus into the midvitreous cavity with a 30 gauge short needle. The eye speculum was removed, Betadine was flushed from the eye and optic nerve perfusion was insured. The patient tolerated the procedure without difficulty and was given followup instructions and instructedto use ophthalmic ointment 3x/day as needed. Rohith Yap DO, performed the procedure in its entirety. documented in this encounter Nursing Notes * Amina Green RN - 08/06/2024 3:14 PM EDT Star Sepulveda to receive ninth Vabysmo 6mg Injection of the Left eye. Correct eye confirmed with patient and marked by Rohith Yap DO Vabysmo 6mg lot # [id number] Exp. Date: 08/2025 * Jennifer Callaway TECH - 08/06/2024 2:43 PM EDT Star Sepulveda is a 88 year old year old male who presents for AMD OU. Last Office Visit: 06/15/2024 (in office), Visit date not found (telemedicine) Patient currently states no change in vision. Are you diabetic? No Do you drive? no OCT image(s) of left eye acquired and filed/scanned into chart. documented in this encounter Plan of Treatment Upcoming Encounters Date Type Department Care Team (Late st Contact Info) Description 09/05/2024 1:30 PM EDT Office Visit Allergy/Immunology State Jorge Cheng [address] [place] [address] [address] Dameon Vasquez MD [address] [place] [address] [address] 09/19/2024 2:30 PM EDT Imaging Radiology [facility] 1st Floor, [place] [address] [place] [phone] 09/25/2024 2:20 PM EDT Office Visit Family Practice [address], [place] [address] [facility] [place] [address] Zafar Tinajero, DO [address] [place] [address] 09/26/2024 10:45 AM EDT Office Visit Ophthalmology, [facility] [address] [place] [phone] Rohith Yap, DO [address] [place] [address] Nurse Eric Grajeda [address] [place] [address] Photographer Kilo Grajeda [address] [place] [address] 10/15/2024 11:00 AM EDT Office Visit Cardiology, [facility] [address] [place] [phone] Bakari Yu, DO [address] [place] [address] 12/04/2024 2:00 PM EDT Office Visit Podiatry [facility] [address] [place] [phone] Jen Bourne DPM [address] [place] [address] 12/19/2024 2:45 PM EDT Office Visit Urology, [facility] [address] [place] [address] Josh Savage MD [address] [id number] Scheduled Orders Name Type Priority Associated Diagnoses Orde r Schedule RETINA SCAN DIAGNOSTIC IMAGE, POSTERIOR Procedures Routine Exudative 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 with active choroidal neovascularization (HCC) Ordered: 08/06/2024 Health Maintenance Due Date Last Done Comments [...] diastolic heart failure 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 Hypertensive heart disease [...] diastolic heart failure 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 Hypertensive heart disease [...] Advanced care planning/counseling discussion Other specified counseling Exudative 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 with active choroidal neovascularization (HCC)- Primary documented in this encounter Administered Medications Active Administered Medications - up to 3 most recent administrations Medication Order MAR Action Action Date Dose Rate Site Faricimab-svoa (Vabysmo) prefilled syringe inj 6 mg 6 mg, Intravitreal, PRN Other, Starting on Tue04/25/24 at 1432, Until Ainsley 04/25/25 at 1431, For 365 days, Each syringe should only be used for the treatment of a single eye. Only use the provided injection filter needle for the administration. Syringe must be stored under refrigeration and away from light. Syringe must reach room temperature prior to administration. 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 (HCC) Given 08/06/2024 3:16 PM EDT 6 mg Given 06/15/2024 12:05 PM EST 6 mg E ye Left Given 04/25/2024 2:34 PM EST 6 mg Ey e Left ROPivacaine (Naropin) inj 1.5 mg 1.5 mg, Injection, PRN Other, Starting on 08/06/24 at 1507, Until Tu08/06/25 at 1506, For 365 daysIndications:Exudative 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 with active choroidal neovascularization (HCC) Given 08/06/2024 3:16 PM EDT 1.5 mg Eye L eft documented in this encounter Advance Directives Documents on File Type Date Recorded Patient Supervisor Building Maintenance Expl anation POLST 12/09/2022 10:36 AM POLST [...] the patient have Health Care Power of Hand Packager? Yes, in chart and reviewed as current [...] Agents on File Name Relationship Healthcare Agent [facility] p Communication Florencia Lindquist Adult Child Health Care Agen t (per Health Care Power of Hand Packager document) [email or web address] Care Teams Welfare Visitor Relationship Specialty Start Date End Date Zafar Tinajero DO [address] [place] [address] PCP - General Internal Medicine 12/27/23 documented as of this encounter
--- OUTSIDE RECORDS SUMMARY | 2024-08-10 07:23 | External Medical Summary ---
Author Name Unknown Address Unknown Organization K01:[facility] [place] - [facility] [place] [address] [facility] [address] [facility] [address] [facility] [address] Laboratory Report Ordering Provider Test Date Status JORDAN PORTER 06/29/2024 13:18:43 Final Observation Date Value Abnormality Reference (Units ) Status WBC, Total 06/29/2024 13:18:43 7.16 4.00-10.80 (K/uL) Final RBC 06/29/2024 13:18:43 4.87 4.50-5.25 (M/uL) Final Hemoglobin 06/29/2024 13:18:43 14.1 14.0-16.8 (g/dL) Final HCT 06/29/2024 13:18:43 43.6 40.0-48.4 (%) Final MCV 06/29/2024 13:18:43 89.5 82.0-99.5 (fL) Final MCH 06/29/2024 13:18:43 29.0 27.0-34.0 (pg) Final MCHC 06/29/2024 13:18:43 32.3 32.0-36.0 (g/dL) Final RDW 06/29/2024 13:18:43 13.3 11.5-15.5 (%) Final Platelets 06/29/2024 13:18:43 210 140-400 (K/uL) Final MPV 06/29/2024 13:18:43 9.4 6.6-11.1 (fL) Final Nucleated erythrocytes/100 leukocytes [Ratio] in Blood by Automated count 06/29/2024 13:18:43 0 <=0 (/100 WBCs) Final Performing Location [facility] [place] [address] [place] [place] [address]
--- OUTSIDE RECORDS SUMMARY | 2024-08-10 07:23 | External Medical Summary | Summary of Care ---
Author Name Unknown Organization [facility] Address [address] [place] [address] Phone [phone] Care Team Providers Care Thread Twister Name Role Phone Zafar Tinajero DO Primary Care Provider [phone] Reason for Visit * Reason Comments Follow Up Encounter Details Date Type Department Care Team (Latest Contact Info) Description 06/25/2024 3:40 PM EST Office Visit Family Practice [facility] [address] [place] [phone] Zafar Tinajero DO [address] [place] [address] Controlled type 2 diabetes mellitus without complication, without long-term current use of insulin ([facility]; Chronic diastolic heart failure ([facility]); COPD, group B, by GOLD 2017 classification ([facility]); HTN, goal below 140/90; 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; Adenocarcinoma, lung, left ([facility]); Primary open-angle glaucoma, bilateral, indeterminate stage; Dyslipidemia, goal LDL below 100; Generalized weakness; Hypertensive heart disease with chronic diastolic congestive heart failure ([facility]); Nasal polyps; Presence of drug coated stent in LAD coronary artery; Sensorineural hearing loss, bilateral; Elevated prostate specific antigen (PSA); Bilateral exudative age-related macular degeneration, unspecified stage ([facility]) Allergies Active Allergy Reactions Criticality Noted Date Comments Codeine Sulfate High 08/05/2010 Throat swelling Oxycodone-Acetaminophen 08/22/2023 documented as of this encounter (statuses as of 06/26/2024) Medications ASPIRIN 81 MG PO CHEWIndications :INTERFACED [...] as of this encounter (statuses as of 06/26/2024) Active Problems Problem Noted Date Diagnosed Date [...] in the Comments) Remote Patient Monitoring V[place] [facility] [place]s): Connected Scale Self - Management Plan [...] Continue injections Coronary artery disease invo lving bridgeport coronary artery of bridge[place] heart without angina pectoris 05/10/2018 Assessment & [...] as of this encounter (statuses as of 06/26/2024) Resolved Problems Problem Noted Date Diagnosed Date [...] externa, chronic 08/24/201207/08 [employer] Clinical Trial [id number] 05/18/2012 05/16/2013 Overview: Renamed per the Centers for Medicare and Medicaid billing requirements to include Clinical Trial.gov number. [employer] Clinical Trial [id number] 05/18/2012 04/01/2014 Overview: Renamed per the Centers for Medicare and Medicaid billing requirements to include Clinical Trial.gov number. [employer] Other*[id number] 04/17/2012 06/15/2016 Overview (04/17/2012): Study Title: Genomic Markers for Patients with Cardiovascular Disease Project # [id number] Coal Hiker: Jennifer Xiong MD [phone] HTN, GOAL BELOW 140/80 12/27/201108/13 Overview: Per [...] as of this encounter (statuses as of 06/26/2024) Immunizations Name Administration Dates Next Due COVID-19 [...] (Prevnar) 02/14/2015 Pneumococcal Conjugate Vacci ne, 20-valent ([id number]) 01/26/2024 Pneumococcal Polysaccharide PPV23 (Pneumovax) 06/16/2012 RSV [...] Passive Smoke Exposure: Past Smokeless Tobacco: Never Tobacco Cessation:Counseling Given: Yes Comments:No passive smoke exposures Alcohol Use Standard Drinks/Week Comments Not Currently [...] on file documented as of this encounter Last Filed Vital Signs Vital Sign Reading Time Taken Comments Blood Pressure 122/66 06/25/2024 4:00 PM EST Pulse 76 06/25/2024 4:00 PM EST Temperature 36.6 °C (97.8 °F) 06/25/2024 4:00 PM ES T Respiratory Rate 14 06/25/2024 4:00 PM EST Oxygen Saturation - - Inhaled Oxygen Concentration - - Weight 76.8 kg (169 lb 4.8 oz) 06/25/2024 4:00 P M EST Height 160.7 cm (5' 3.25") 06/25/2024 4:00 PM ES T Body Mass Index 29.75 06/25/2024 4:00 PM EST documented in this encounter Functional Status * Are you [...] Palak You RN documented in this encounter Patient Instructions * Patient Instructions* Irma Arce, BENTLEY - 06/25/2024 3:58 PM EST Diabetes: Keeping Feet Healthy Inspect your feet every day for signs of a problem. Diabetes can damage nerves in your feet and cause neuropathy. This condition makes it hard for you to feel injuries or sore spots. Diabetes can also change blood flow, making it harder for small problems, like a blister, to heal properly. In fact, minor injuries can quickly become serious infections that send you to the hospital. Practice self-care to protect your feet and keep them healthy. Take Special Care Inspect your feet daily for problems such as redness, blisters, cracks, dry skin, or numbness. Use a mirror to see the bottoms of your feet. Or, ask for help. Manage your diabetes. Monitor and control your blood sugar. Take all your medications as prescribed. Avoid walking barefoot, even indoors. Wash your feet with warm water and mild soap. Dry well, especially between toes. Don’t treat corns or calluses yourself. Talk to your doctor or electric melt operator (a doctor who specializes in foot care) if you need assistance trimming your toenails. Use moisturizing cream or lotion if you have dry skin, but don’t use it between toes. Don’t use heating pads on your feet. If you have neuropathy, you could get a burn and not feel it. Stop smoking. Smoking restricts blood flow and can make it harder for wounds to heal. Have Regular Checkups Foot problems can develop quickly. So be sure to follow your healthcare team’s schedule for regular checkups. During office visits, take off your shoes and socks as soon as you get in the exam room. Ask your healthcare provider to examine your feet for problems. This will make it easier to find and treat small skin irritations before they get worse. Regular checkups can also help keep track of the blood flow and feeling in your feet. If you have neuropathy, you may need to have checkups more often. Wear Proper Footwear Wearing proper footwear is very important. If areas of your feet have been damaged by too much pressure, your healthcare provider may recommend changing your footwear. In some cases, avoiding high heels or tight work boots may be all that’s needed. Or, your healthcare provider may recommend special shoes or custom inserts. These help protect your feet and keep existing irritations from getting worse. If you need special footwear, ask your healthcare provider if you qualify for Medicare’s diabetic shoe program. Make Sure Shoes and Socks Fit Any pair of shoes--new or old--should feel comfortable as soon as you put them on. There shouldn’t be any rubbing when you walk. Wear the right shoe for any activity. For instance, a running shoe is designed to keep your feet injury-free while jogging. Buy shoes at the end of the day, when your feet are larger. Make sure they provide support without feeling too loose. Make sure your socks fit, t oo. Wear soft, seamless, well-padded socks for activity. Cotton or microfiber socks are best to help to absorb sweat. To protect your feet, avoid shoes that are open-toed or open-heeled. If you have questions about what kinds of shoes and socks are best, talk to your healthcare team. Get Regular Exercise Regular exercise improves blood flow in your feet. It also increases foot strength and flexibility.Gentle exercises, like walking or riding a stationary bicycle, are best. You can also do special foot exercises. Just be sure to talk with your healthcare provider before starting any exercise program. Also mention if any exercise causes pain, redness, or other signs of foot problems. Note: If you have any kind of break in the skin of your foot or ankle, keep the area clean. Then call your doctor--especially if the area doesn’t appear to be healing. © 7953-0462 The [facility], [address] [place] [address], [place] [address]. All rights reserved. This information is not intended as a substitute for professional medical care. Always follow your healthcare professional's instructions. documented in this encounter Progress Notes * Zafar Tinajero DO - 06/25/2024 10:10 PM EST SUBJECTIVE: Star Sepulveda is a 88 year old male. Chief Complaint Patient presents with Follow Up HPI: Patient is an 88 year old male with a history of COPD, Hyperlipidemia, Adenocarcinoma of the left Lung treated with Radiation, CAD, BPH, elevated PSA, LAD Stent, Nasal Polyps, macular Degeneration, DM Type II, Diastolic CHF, and Glaucoma that is seen for follow up. Chronic shortness of breath is stable. No chest pain is present. Appetite is good and weight is stable. Vision continues to worsen. Chronic nasal drainage is unchanged. CT chest is scheduled on 09/19/2024. 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 90 Capsule 3 Fluticasone-Salmeterol 250-50 MCG/ACT Inhalation Aerosol Powder Breath Activated (Advair Diskus) Inhale 1 Puff by mouth in the morning and 1 Puff before bedtime. 180 Each 2 Fluticasone Propionate 50 MCG/ACT Nasal Suspension (Flonase) [...] mouth in the morning. 90 Tablet 1 Glucose Blood (ONETOUCH VERIO) STRP Test blood sugar twice times daily or as directed E11.9 200 Strip 3 Latanoprost 0.005 % Ophthalmic Solution (Xalatan) Instill 1 drop into both eyes once daily 2.5 mL 12 Current Facility-Administered Medications Medication Dose Route Frequency Provider Last Rate Last Admin Faricimab-svoa (Vabysmo) prefilled syringe inj 6 mg 6 mg Intravitreal PRN 6 mg at 06/15/24 1205 The patient's medication list was reviewed and updated as needed. 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 DM type 2, not at goal (HCC) Dyslipidemia, goal LDL below 100 04/17/2009 Per Lipid Taxonomy. ELEVATED PROSTATE SPECIFIC ANTIGEN 03/06/1999 Esophageal reflux 08/24/2012 Excessive cerumen in ear canal 08/24/2012 [employer] Other*[id number] 04/17/2012 Study Title: Genomic Markers for Patients with Cardiovascular Disease Project # [id number] PrincipalInvestigator: Jennifer Xinog MD [phone] GLAUCOMA NEC 08/09/1999 HTN, goal below 140/80 12/27/2011 Per HTN Protocol #27. Hx of corneal abrasion LIPOMA SKIN NEC 05/13/2003 Lung nodule Macular degeneration 04/10/2014 OD wet Eylea injections started, Dr. Yap NASAL POLYP NOS 11/22/2001 Nasal polyps 08/24/2012 Otitis externa, chronic 08/24/2012 Prediabetes 10/18/2023 Presence of drug coated stent in LAD coronary artery 04/19/2012 [facility] [id number] 05/18/2012 Renamed per the Centers for Medicare and Medicaid billing requirements to include Clinical Trial.gov number. Seasonal allergies Sensorineural hearing loss, bilateral 08/24/2012 Sleep-disordered breathing 08/24/2012 Smell and taste disorder 02/07/2013 Snoring disorder 08/24/2012 Type 2 diabetes mellitus with hemoglobin A1c goal of less than 7.0% ([facility]) 03/06/2009 Per Diabetes Taxonomy. ICD-10 update of inactive term Past Surgical History: Procedure Laterality Date COLONOSCOPY W/ BIOPSY (RECTUM) 12/14/2006 Tubular adenoma polyp of colon (2) ; repeat in 5 years COLONOSCOPY, DIAGNOSTIC (RECTUM) 08/1998 Negative for polyps COLONOSCOPY, DIAGNOSTIC (RECTUM) 04/08/2015 COLONOSCOPY FLEXIBLE PROXIMAL DIAGNOSTIC performed by Peña Moss MD at ENDOSCOPY [facility] COLONOSCOPY, DIAGNOSTIC (RECTUM) N/A 02/26/2020 COLONOSCOPY FLEXIBLE PROXIMAL DIAGNOSTIC performed by Yovani Saldivar MD at ENDOSCOPY [facility] COLONOSCOPY, REMOVE LESION 12/2003 tubular adenoma transverse colon-repeat in 3 years COLORECTAL CANCER SCREEN; COLON 01/20/2009 repeat in 5 years CORONARY ANGIOGRAPHY W/LEFT HEART CATH 04/17/2012 CORONARY ANGIOGRAPHY W/LEFT HEART CATH performed by Jennifer Xiong MD at CARDIAC LABS [facility] CYSTOSCOPY 02/2005 Dr. Leroy- benign, enlarged prostate EGD, FLEXIBLE, DIAGNOSTIC N/A 02/26/2020 ESOPHAGOGASTRODUODENOSCOPY (EGD), FLEXIBLE, TRANSORAL, DIAGNOSTIC performed by Yovani Saldivar MD atENDOSCOPY [facility] EXPLORE, TREAT ANKLE JOINT [...] Left 11/30/2017 # 11 Eylea OS, Dr. aYp INJECTION OF EYE DRUG Left 01/04/2018 # 12 Eylea OS, Dr. Yap INJECTION OF EYE DRUG Left 02/08/2018 # 13 Eylea OS, INJECTION OF EYE DRUG Left 03/22/2018 # 14 Eylea OS; Dr. Fracisco MACKEY OF EYE DRUG Left 04/28/2018 # 15 [...] CATARACT Right OD Dr. Pemberton MISCELLANEOUS ORDER ([facility] ONLY) 01/02/2009 Excision epidermoid cyst groin Dr. Limon MISCELLANEOUS ORDER ([facility] ONLY) Right 04/10/2014-04/10/2015 EYLEA OD CONSENT SIGNED, [...] LUCENTIS 0.5MG OS CONSENT SIGNED; DR FRACISCO BIANCHI ORDER ([facility] ONLY) Left 11/29/2019-11/28/2020 EYLEA OS CONSENT SIGNED, Dr. Yap NASAL/SINUS ENDOSCOPY, SURGICAL 2002 OTHER Left Eylea OS Consent signed, /Sanket 12/31/2020-12/31/2021 OTHER (INFORMATION) Left 02/06/2021 # 39 Eylea OS, Dr. Yap OTHER (INFORMATION) Bilateral EYLEA OU CONSENT DR. CHAVEZ EXP. 01/01/23 OTHER (INFORMATION) EYLEA OU CONSENT SIGNED Dr. Yap (EXP 01-21-24) OTHER (INFORMATION) Avastin OU Consent Signed EXP03/03/24; Dr Yap/sanket OTHER (INFORMATION) CONSENT OU VBYSMO EXP 06/24/24; DR YAP/SANKET REMOVE CATARACT, INSERT LENS PROSTH Bilateral OU-Dr. Pemberton REVISE KNEE JOINT REPLACEMENT Left 03/27/2018 Review of patient's allergies indicates: Allergen Reactions Codeine Sulfate Throat swelling Oxycodone-Acetaminophen Review of Systems Constitutional: Negative for appetite change, fatigue and unexpected weight change. HENT: Positive for congestion, postnasal drip and rhinorrhea. Negative for sore throat and trouble swallowing. Respiratory: Positive for shortness of breath. Negative for cough and wheezing. Cardiovascular: Negative for chest pain, palpitations and leg swelling. Gastrointestinal: Negative for abdominal pain, blood in stool, constipation, diarrhea, nausea and vomiting. Genitourinary: Negative for dysuria, frequency and hematuria. Musculoskeletal: Negative for back pain and gait problem. Neurological: Negative for dizziness, syncope and headaches. Psychiatric/Behavioral: Negative for confusion, decreased concentration and sleep disturbance. OBJECTIVE: BP 122/66 | Pulse 76 | Temp 97.8 °F (36.6 °C) | Resp 14 | Ht 5' 3.25" (1.607 m) | Wt 169 lb 4.8 oz (76.8 kg) | BMI 29.75 kg/m² | BSA 1.85 m² Physical Exam Vitals and nursing note reviewed. Constitutional: General: He is not in acute distress. Appearance: Normal appearance. He is not toxic-appearing. HENT: Head: Normocephalic and atraumatic. Cardiovascular: Rate and Rhythm: Normal rate and regular rhythm. Heart sounds: Normal heart sounds. No murmur heard. No gallop. Pulmonary: Effort: Pulmonary effort is normal. Breath sounds: Normal breath sounds. No wheezing, rhonchi or rales. Abdominal: General: Bowel sounds are normal. There is no distension. Palpations: Abdomen is soft. Tenderness: There is no abdominal tenderness. Neurological: Mental Status: He is alert and oriented to person, place, and time. Mental status is at baseline. Motor: No weakness. Gait: Gait normal. Psychiatric: Mood and Affect: Mood normal. Behavior: Behavior normal. Thought Content: Thought content normal. PLAN AND ASSESSMENT: Controlled type 2 diabetes mellitus without complication, without long-term current use of insulin ([facility]) (Primary) - DIABETES FOOT EXAM - ALBUMIN / CREATININE RATIO, URINE; Future; Expected date: 06/25/2024 - HEMOGLOBIN A1C; Future; Expected date: 06/25/2024 Diet controlled Chronic diastolic heart failure ([facility]) - COMPREHENSIVE METABOLIC PANEL; Future; Expected date: 06/25/2024 - CBC WITH WBC DIFFERENTIAL; Future; Expected date: 06/25/2024 Continue Lisinopril COPD, group B, by GOLD 2017 classification ([facility]) Continue Advair HTN, goal below 140/90 - COMPREHENSIVE METABOLIC PANEL; Future; Expected date: 06/25/2024 - CBC WITH WBC DIFFERENTIAL; Future; Expected date: 06/25/2024 Continue Amlodipine, and Lisinopril 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 Continue Lisinopril and ASA Adenocarcinoma, lung, left (HCC) Treated with Radiation CT chest scheduled on 09/20/2024 Primary open-angle glaucoma, bilateral, indeterminate stage Continue Xalatan per Ophthalmology Dyslipidemia, goal LDL below 100 - LIPID PANEL WITH DIRECT LDL IF TG IS HIGH; Future; Expected date: 06/25/2024 Continue Atorvastatin Generalized weakness Hypertensive heart disease with chronic diastolic congestive heart failure (HCC) Continue Lisinopril, and Amlodipine Nasal polyps Continue Flonase Presence of drug coated stent in LAD coronary artery Sensorineural hearing loss, bilateral Elevated prostate specific antigen (PSA) PSA as ordered by Urology Urology follow up scheduled 07/03/2024 Bilateral exudative age-related macular degeneration, unspecified stage (HCC) Continue to follow with Dr. Yap Follow-up: Return in about 3 months (around 09/22/2024), or if symptoms worsen or fail to improve. |Check-out note: Schedule fasting labs in 1 week Zafar Tinajero DO 10:10 PM 06/25/2024 * Irma Arce, BENTLEY - 06/25/2024 3:58 PM EST Socks and Shoes Removed for Annual Diabetic Foot Screening RIGHT FOOT: No Reddened, Cracking, Or Open Areas Noted. RIGHT Dorsalis Pedis Pulse: Palpable RIGHT Posterior Tibial Pulse: Palpable RIGHT Monofilament:Patient reports feeling monofilament pressure on plantar surface of foot LEFT FOOT: No Reddened, Cracking or Open Areas Noted. LEFT Dorsalis Pedis Pulse: Palpable LEFT Posterior Tibial Pulse: Palpable LEFT Monofilament:Patient reports feeling monofilament pressure on plantar surface of foot Do you need diabetic shoes: N/A DM Foot Exam completed today. Provider aware. Irma Arce LPN documented in this encounter Nursing Notes * Irma Arce LPN - 06/25/2024 3:59 PM EST Feeling pretty good, states he did recently have uri. States drainage at end of tailbone. documented in this encounter Plan of Treatment Upcoming Encounters Date Type Department Care Team (Late st Contact Info) Description 06/29/2024 1:00 PM EST Laboratory Lab [facility] [address] [place] [address] [place], Lab [address] [place] [address], [place] [address] 07/03/2024 11:45 AM EST Office Visit Urology, [facility] [address] [place] [address] Josh Savage MD [address] [place] [address] 08/06/2024 2:45 PM EDT Office Visit Ophthalmology, [facility] [address] [place] [address] Rohith Yap DO [address] [place] [address] 09/05/2024 1:30 PM EDT Office Visit Allergy/Immunology [facility] [place] [address] [place], [place] [address] Dameon Vasquez MD [address] [place] [address] 09/19/2024 2:30 PM EDT Imaging Radiology [facility], [place] [address] [place] [id number] 09/25/2024 2:20 PM EDT Office Visit Family Practice [address] [place] [address] [facility] [place] [address] Zafar Tinajero, DO [address] [facility] [place] [address] 10/15/2024 11:00 AM EDT Office Visit Cardiology, [facility] [address] [place] [address] Bakari Yu, DO [address] [place] [address] 12/04/2024 2:00 PM EDT Office Visit Podiatry [facility] [address] [place] [phone] Jen Bourne, HERLINDAM [address] [place] [address] Scheduled Orders Name Type Priority Associated Diagnoses Orde r Schedule COMPREHENSIVE METABOLIC PANEL Lab Routine Chronic diastolic heart failure (HCC) HTN, goal below 140/90 Expected: 06/25/2024 (Approximate), Expires: 06/25/2025 CBC WITH WBC DIFFERENTIAL Lab Routine Chronic diastolic heart failure (HCC) HTN, goal below 140/90 Expected: 06/25/2024 (Approximate), Expires: 06/25/2025 LIPID PANEL WITH DIRECT LDL IF TG IS HIGH Lab Routine Dyslipidemia, goal LDL below 100 Expected: 06/25/2024, Expires: 06/25/2025 ALBUMIN / CREATININE RATIO, URINE Lab Routine Controlled type 2 diabetes mellitus without complication, without long-term current use of insulin (HCC) Expected: 06/25/2024 (Approximate), Expires: 06/25/2025 HEMOGLOBIN A1C Lab Routine Controlled type 2 diabetes mellitus without complication, without long-term current use of insulin (HCC) Expected: 06/25/2024 (Approximate), Expires: 06/25/2025 Health Maintenance Due Date Last Done Comments Adult Wellness Visit 10/23/2001 HbA1c 09/20/2024 03/23/2024, 02/10/2023, 10/20/2022, Additional history exists Diabetic Eye Exam 03/08/2025 03/08/2024, , 07/26/2022, Additional history exists Albumin/Creatinine Ratio 03/23/2025 024, 06/14/2023, 06/22/2022, Additional history exists O2 ASSESSMENT COMPLETED IN PAST YEAR FOR COPD 03/23/2025 03/23/2024 Depression Screening 06/25/2025 06/25/2024 Diabetic Foot Exam 06/25/2025 06/25/2024, 0 06/14/2023, 06/22/2022, Additional history exists DTap/Tdap Vaccines (3 - [...] diastolic heart failure 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 Hypertensive heart disease [...] diastolic heart failure 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 Hypertensive heart disease [...] Advanced care planning/counseling discussion Other specified counseling Controlled type 2 diabetes mellitus without complication, without long-term current use of insulin (HCC)- Primary Chronic diastolic heart failure (HCC) Chronic diastolic heart failure COPD, group B, by GOLD 2017 classification (HCC) HTN, goal below 140/90 Unspecified essential hypertension 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 Adenocarcinoma, lung, left (HCC) Primary open-angle glaucoma, bilateral, indeterminate stage Dyslipidemia, goal LDL below 100 Other and unspecified hyperlipidemia Generalized weakness Other malaise and fatigue Hypertensive heart disease with chronic diastolic congestive heart failure (HCC) Nasal polyps Unspecified nasal polyp Presence of drug coated stent in LAD coronary artery Postsurgical percutaneous transluminal coronary angioplasty status Sensorineural hearing loss, bilateral Elevated prostate specific antigen (PSA) Bilateral exudative age-related macular degeneration, unspecified stage (HCC) documented in this encounter Advance Directives Documents on File Type Date Recorded Patient Operations Supervisor Chemical Cleaning Expl anation POL 12/09/2022 10:36 AM POLST * Full Code [...] the patient have Health Care Power of Counter Stacker? Yes, in chart and reviewed as current [...] Grey t (per Health Care Power of Counter Stacker document) [email or web address] Care Teams Thread Twister Relationship Specialty Start Date End Date Zafar Tinajero DO [address] [facility] [place] [address] PCP - General Internal Medicine 12/27/23 documented as of this encounter
--- OUTSIDE RECORDS SUMMARY | 2024-08-10 07:23 | External Medical Summary | Summary of Care ---
Author Name Unknown Organization [facility] Address [address] [place] [address] Phone [phone] Care Team Providers Care Assistant Chief Of Police Name Role Phone Zafar Tinajero DO Primary Care Provider [phone] Reason for Visit * Reason Comments Outpatient Testing Encounter Details Date Type Department Care Team (Late st Contact Info) Description 07/03/2024 12:20 PM EST Laboratory Laboratory, [facility] [address] [place] [phone] [facility] [address] [place] [address] Serum potassium elevated Allergies Active Allergy Reactions Criticality Noted Date Comments Codeine Sulfate High 08/05/2010 Throat swelling Oxycodone-Acetaminophen 08/22/2023 documented as of this encounter (statuses as of 07/03/2024) Medications ASPIRIN 81 MG PO CHEWIndications :INTERFACED [...] in the Comments) Remote Patient Monitoring Vendor: [facility] Device(s): Connected Scale Self - Management [...] Continue injections 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 Resolute Integrity Clinical Trial [id number] 05/18/2012 04/01/2014 Overview: Renamed per the Centers for Medicare and Medicaid billing requirements to include Clinical Trial.gov number. Gen[employer] Research Other*[id number] 04/17/2012 06/15/2016 Overview (04/17/2012): Study Title: Genomic Markers for Patients with Cardiovascular Disease Project # [id number] Camera Machinist: Jennifer Xiong MD [phone] HTN, GOAL BELOW 140/80 12/27/201108/13 Overview: Per [...] (Prevnar) 02/14/2015 Pneumococcal Conjugate Vacci ne, 20-valent ([id number]) 01/26/2024 Pneumococcal Polysaccharide PPV23 (Pneumovax) 06/16/2012 RSV [...] 08/23/2023 Does the household have a re lar source of income? (Household - for ages [...] Palak You RN documented in this encounter Plan of Treatment Upcoming Encounters Date Type Department Care Team (Late st Contact Info) Description 08/06/2024 2:45 PM EDT Office Visit Ophthalmology, [facility] [address] [place] [address] Rohith Yap, DO [address] [place] [address] 09/05/2024 1:30 PM EDT Office Visit Allergy/Immunology [facility] [address] [place] [address] Dameon Vasquez MD [address] [place] [address] 09/19/2024 2:30 PM EDT Imaging Radiology [address] [facility] [place] [phone] 09/25/2024 2:20 PM EDT Office Visit Family Practice [address] [place] [address] [address] [place] [address] Zafar Tinajero, DO [address] [place] [address] 10/15/2024 11:00 AM EDT Office Visit Cardiology, [facility] [address] [facility] [place] [address] Bakari Yu, DO [address] [place] [address] 12/04/2024 2:00 PM EDT Office Visit Podiatry [facility] [address] [place] [phone] Jen Bourne, DPIsh [address] [facility] [place] [address] 12/19/2024 2:45 PM EDT Office Visit Urology, [facility] [address] [facility] [place] [address] Josh Savage MD [address] [place] [address] Health Maintenance Due Date Last Done Comments [...] Not on filedocumented as of this encounter Procedures Procedure Name Priority Date/Time Associated Diagnosis Comments POTASSIUM Routine 07/03/2024 12:08 PM EST Serum potassium elevated documented in this encounter Results * POTASSIUM (07/03/2024 12:08 PM EST) POTASSIUM 4.6 3.5 - 5.1 mmol/L 07/03/2024 1:48 PM EST LAB[facility]ATORY [facility] 57-10 Blood Venous blood specimen / Unknown Venipuncture / Unknown 07/03/2024 12:08 PM EST 07/03/2024 12:08 PM EST us Zafar Tinajero DO LAB BLOOD ORDERABLES Final Res ult LABORATORY [place] 57-10 [address] [facility] [place] [address] documented in this encounter Visit Diagnoses Diagnosis Generalized weakness- Primary Other malaise and fatigue Chronic diastolic heart failure (HCC) Chronic diastolic heart failure 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 of grand ronde tribes heart without angina pectoris Hypertensive heart disease [...] diastolic heart failure 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 of grand ronde tribes heart without angina pectoris Hypertensive heart disease [...] planning/counseling discussion Other specified counseling Serum potassium elevated Hyperpotassemia documented in this encounter Advance Directives Documents on File Type Date Recorded Patient Nitroglycerin Supervisor Expl anation POLST 12/09/2022 10:36 AM POL * Full Code [...] the patient have Health Care Power of Champion Of Sustainable Design? Yes, in chart and reviewed as current [...] Agents on File Name Relationship Healthcare Agent [facility] p Communication Florencia Lindquist Adult Child Health Care Agen t (per Health Care Power of Champion Of Sustainable Design document) [email or web address] Care Teams Assistant Chief Of Police Relationship Specialty Start Date End Date Zafar Tinajero DO [address] [place] [address] PCP - General Internal Medicine 12/27/23 documented as of this encounter
--- OUTSIDE RECORDS SUMMARY | 2024-08-10 07:23 | External Medical Summary | Summary of Care ---
Author Name Unknown Organization [facility] Address [address] [place] [address] Phone [phone] Care Team Providers Care Tip Out Worker Name Role Phone Zafar Tinajero DO Primary Care Provider [phone] Reason for Visit * Reason Comments Follow Up 6-8 week follow up * Precert (Within 10 days (routine)) - Authorized Specialty Diagnoses / Procedures Referred By Abigail jung Referred To Contact Ophthalmology Diagnoses Exudative age-related macular degeneration, left eye, with inactive choroidal neovascularization (HCC) Procedures IL INJECTION, FARICIMAB-SVOA, 0.1 MG IL INTRAVITREAL NJX PHARMACOLOGIC AGT SPX Rohith Yap DO [address] [facility] [place] [address] Phone: tel: fax: Ophthalmology, [facility] [address] [facility] [place] [address] Phone: tel: fax: Referral ID Status Reason Start Date Expiration Date V isits Requested Visits Authorized [id number] Authorized Precert 05/20/2023 05/08/2099 [id number] Encounter Details Date Type Department Care Team (Late st Contact Info) Description 06/15/2024 11:30 AM EST Office Visit Ophthalmology, [facility] [address] [place] [address] Rohith Yap, DO [address] [place] [address] Exudative 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 with active choroidal neovascularization (HCC)* Allergies Active Allergy Reactions Criticality Noted Date Comments Codeine Sulfate High 08/05/2010 Throat swelling Oxycodone-Acetaminophen 08/22/2023 documented as of this encounter (statuses as of 06/18/2024) Medications ASPIRIN 81 MG PO CHEWIndications :INTERFACED RESULT take one tablet daily 30 Tab 11 2 Active PRESERVISION AREDS 2 PO CAPS Take 1 capsule by mouth twice daily Active Glucose Blood ([employer]TOUCH VERIO) STRP Test blood sugar twice times [...] Route Frequency Start Date End Date Status ROPivacaine (Naropin) inj 1.5 mgIndications:Exudative 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 with active choroidal neovascularization (HCC) 1.5 mg IJ PRN 06/24/2023 5 Active Faricimab-svoa (Vabysmo) prefilled syringe inj 6 mgIndications:Exudative 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 with active choroidal neovascularization (HCC) 6 mg IZ PRN 04/25/2024 5 Active Faricimab-svoa (Vabysmo) intravitreal inj 6 mgIndications:Exudative 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 with active choroidal neovascularization (HCC) 6 mg IZ PRN 06/24/2023 5 Discontinued documented as of this encounter (statuses as of 06/18/2024) Active Problems Problem Noted Date Diagnosed Date [...] in the Comments) Remote Patient Monitoring Vendor: [facility] Device(s): Connected Scale Self - Management Plan [...] Continue injections Coronary artery disease invo lving [place] coronary artery of [place] heart without angina pectoris 05/10/2018 Assessment & [...] Lipid Taxonomy. Controlled type 2 diabetes m jorje without complication, without long-term current use of [...] as of this encounter (statuses as of 06/18/2024) Resolved Problems Problem Noted Date Diagnosed Date [...] ear canal 08/24/2012 12/07/2016 Otitis externa, chronic 08/24/2012/ Resolute Integrity Clinical Trial [id number] 05/18/2012 05/16/2013 Overview: Renamed per the Centers for Medicare and Medicaid billing requirements to include Clinical Trial.gov number. Resolute Integrity Clinical Trial [id number] 05/18/2012 04/01/2014 Overview: Renamed per the Centers for Medicare and Medicaid billing requirements to include Clinical Trial.gov number. [employer] Card[employer] Other*[id number] 04/17/2012 06/15/2016 Overview (04/17/2012): Study Title: Genomic Markers for Patients with Cardiovascular Disease Project # [id number] Humanities Coordinator: Jennifer Xiong MD [phone] HTN, GOAL BELOW 140/80 12/27/201108/13 Overview: Per [...] as of this encounter (statuses as of 06/18/2024) Immunizations Name Administration Dates Next Due COVID-19 [...] (Prevnar) 02/14/2015 Pneumococcal Conjugate Vacci ne, 20-valent ([id number]) 01/26/2024 Pneumococcal Polysaccharide PPV23 (Pneumovax) 06/16/2012 RSV [...] Date Recorded PHQ Adult Total Score 0 06/14/2023 Hunger Vital Sign Answer Date Recorded Within [...] this encounter Progress Notes * Rohith Yap, DO - 06/15/2024 11:30 AM EST [facility] [place] Nursing Notes: Judith Dhillon LPN 06/15/24 1151 Signed Star Sepulveda is a 88 year old year old male who presents for AMD OU. Last Office Visit: 04/25/2024 (in office), Visit date not found (telemedicine) Patient currently states no change in vision. Are you diabetic? No Do you drive? no OCT image(s) of left eye acquired and filed/scanned into chart. Base Eye Exam Visual Acuity (Snellen - Linear) Right Left Dist sc 20/800 -1 20/350 -1 Dist ph sc NI NI Tonometry (Tonopen, 11:50 AM) Right Left Pressure 28 19 Tonometry #2 (Tonopen, 11:51 AM) Right Left Pressure 20 Pupils Dark Light Shape React APD Right 1 1 Irregular Minimal None Left 1 1 Irregular Minimal None Visual Galvez (Counting fingers) Right Left Full Full Extraocular Movement Right Left Full, Ortho Full, Ortho Neuro/Psych Oriented x3: Yes Dilation Both eyes: 0.5% Proparacaine @ 11:50 AM Dilation #2 Left eye: 1.0% Mydriacyl, 2.5% Phenylephrine @ 11:50 AM Dilation Comments Patient cautioned that effects of [...] s/p Lucentis (10-20-17, 09-14-17) - s/p Eylea (05-23-, 04-11-19, 02-21-19, 01-10-19, 11-29-, 10-18-18, 09-06-18, 07-26-, 06-15-18, 04-28-18, 02/08/18, 01/04/18...08-04-18, 06-28-18, 18, 04-05-17, 03/03/17, 01-27-17, 12-30-17, 11-18-17, 10-06-16, 09/01/16) -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 no matter which anti-VEGF used, persistent ongoing srfluid - Lucentis (08-08-19) - Eylea (01/20/23, 11/04/22-Fresh heme 11/04/2022 , 07/26/22, 05/24/22, 04/07/22, 01/01/22, 11/30/21, 10/12/21, 08/24/21, 07/10/21, 06/05/21, 04/27/21, 03/23/21, 02/06/21, 12-31-, 11-19-, 10/02/20, 08-21-, 07-16-, 06-11-, 04-30-20, 03-25-20, 02-11-, 01/08/20, 11-28-20, 10-17-20, 09-19-20)--improved - worse at 12 weeks; good in past at 15 weeks -Avastin 05/19/23, 04/07/23, 03/03/23 -Vabysmo 04/25/24, 03/08/24, 01/18/24, 12/02/23, 10/14/23, 08/22/23, 06/24/2023 [...] documented in this encounter Nursing Notes * Jennifer Callaway TECH - 06/15/2024 12:03 PM EST Star Sepulveda to receive eighth Vabysmo 6mg Injection of the Left eye. Correct eye confirmed with patient and marked by Rohith Yap DO Vabysmo 6mg lot # [id number] Exp. Date: 08/2025 * Judith Dhillon LPN - 06/15/2024 11:43 AM EST Star Sepulveda is a 88 year old year old male who presents for AMD OU. Last Office Visit: 04/25/2024 (in office), Visit date not found (telemedicine) Patient currently states no change in vision. Are you diabetic? No Do you drive? no OCT image(s) of left eye acquired and filed/scanned into chart. documented in this encounter Plan of Treatment Upcoming Encounters Date Type Department Care Team (Late st Contact Info) Description 06/25/2024 3:40 PM EST Office Visit Family Practice [address], [place] [address] [place] [address] Zafar Tinajero, DO 293 [facility], [place] [address] 07/03/2024 11:45 AM EST Office Visit Urology, [facility] [address] [facility] [place] [address] Josh Savage MD [address] [place] [address] 08/06/2024 2:45 PM EDT Office Visit Ophthalmology, [facility] 132 [facility] [place] [address] Rohith Yap, DO 132 [facility] [place] [address] 09/05/2024 1:30 PM EDT Office Visit Allergy/Immunology [facility] [address] [place] [address] Dameon Vasquez MD [address] [place] [address] 09/19/2024 2:30 PM EDT Imaging Radiology [facility] [address] [facility] [place] [phone] 10/15/2024 11:00 AM EDT Office Visit Cardiology, [facility] [address] [facility] [place] [address] Bakari Yu, DO [address] [facility] [place] [address] 12/04/2024 2:00 PM EDT Office Visit Podiatry [facility] [address] [facility] [place] [phone] Jen Bourne, DPM [address] [place] [address] 01/08/2025 2:00 PM EDT Office Visit Allergy/Immunology [facility]asmine [address] [place] [address] [place] [address] Britta Sullivan PA-C [address] [facility] [place] [address] Scheduled Orders Name Type Priority Associated Diagnoses Orde r Schedule RETINA SCAN DIAGNOSTIC IMAGE, POSTERIOR Procedures Routine Exudative 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 with active choroidal neovascularization (HCC) Ordered: 06/15/2024 Health Maintenance Due Date Last Done Comments Adult Wellness Visit 10/23/2001 Depression Screening 06/14/2024 06/14/2023 Diabetic Foot Exam 06/14/2024 06/14/2023, 0 06/22/2022, 06/19/2021, Additional history exists HbA1c 09/20/2024 03/23/2024, 02/0 10/2023, 10/20/2022, Additional history exists Diabetic Eye Exam 03/08/2025 03/08/2024, , 07/26/2022, Additional history exists Albumin/Creatinine Ratio 03/23/202503/23/ 024, 06/14/2023, 06/22/2022, Additional history exists O2 ASSESSMENT COMPLETED IN PAST YEAR FOR COPD 03/23/2025 03/23/2024 DTap/Tdap Vaccines (3 - Td or Tdap) [...] diastolic heart failure Coronary artery disease involving [place] coronary artery of [place] heart without angina pectoris Hypertensive heart disease [...] diastolic heart failure Coronary artery disease involving [place] coronary artery of [place] heart without angina pectoris Hypertensive heart disease [...] eye with active choroidal neovascularization (HCC) Given 06/15/2024 12:05 PM EST 6 mg Eye Left Given 04/25/2024 2:34 PM EST 6 mg Ey e Left ROPivacaine (Naropin) inj 1.5 mg 1.5 mg, Injection, PRN Other, Starting on 06/24/23 at 1246, Until 06/23/24 at 1245, For 365 daysIndications:Exudative 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 with active choroidal neovascularization (HCC) Given 06/15/2024 12:04 PM EST 1.5 mg Eye Left Given 04/25/2024 2:35 PM EST 1.5 mg Given 03/08/2024 11:41 AM EDT 1.5 mg E ye Left documented in this encounter Advance Directives Documents on File Type Date Recorded Patient Technologies Division Chair Expl anation POLST 12/09/2022 10:36 AM POLST [...] the patient have Health Care Power of Slab Miller Operator? Yes, in chart and reviewed as current [...] Agents on File Name Relationship Healthcare [facility] Communication Florencia Lindquist Adult Child Health Care Grey jung (per Health Care Power of Slab Miller Operator document) [email or web address] Tip Out Worker Relationship Specialty Start Date End Date Zafar Tinajero DO [address] [place] [address] PCP - General Internal Medicine 12/27/23 documented as of this encounter
--- OUTSIDE RECORDS SUMMARY | 2024-08-10 07:23 | External Medical Summary ---
Author Name Unknown Address Unknown Organization K01:LABORATORY [facility] - [address] [place] [address] Laboratory Report Ordering Provider Test Date Status CRISSY DAMON 06/29/2024 13:18:43 Final Observation Date Value Abnormality Reference (Units ) Status PSA 06/29/2024 13:18:43 10.99 Above high normal <4 .10 (ng/mL) Final Performing Location LABORATORY [facility] - [address] [address]
--- OUTSIDE RECORDS SUMMARY | 2024-08-10 07:23 | External Medical Summary ---
Author Name Unknown Address Unknown Organization [id number] [address] [place] [address] Laboratory Report Ordering Provider Test Date Status JORDAN PORTER 07/03/2024 12:08:30 Final Observation Date Value Abnormality Reference (Units ) Status Potassium 07/03/2024 12:08:30 4.6 3.5-5.1 (m mol/L) Final Performing [facility] - [address] [place] [address]
--- OUTSIDE RECORDS SUMMARY | 2024-08-10 07:24 | External Medical Summary | Summary of Care ---
Author Name Unknown Organization [facility] Address [address] [place] [address] Phone [phone] Care Team Providers Care Go Go Dancer Name Role Phone Zafar Tinajero DO Primary Care Provider [phone] Reason for Visit * Reason Comments Follow Up Encounter Details Date Type Department Care Team (Latest Contact Info) Description 03/23/2024 3:40 PM EST Office Visit Family Practice [facility] [address] [place] [phone] Zafar Tinajero DO [address] [place] [address] COPD, group B, by GOLD 2017 classification ([facility])*; Controlled type 2 diabetes mellitus without complication, without long-term current use of insulin ([facility]); Chronic diastolic heart failure ([facility]); Bilateral exudative age-related macular degeneration, unspecified stage ([facility]); Adenocarcinoma, lung, left ([facility]); Dyslipidemia, goal LDL below 100; Presence of drug coated stent in LAD coronary artery; 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 180 Each 2 4 Active Lisinopril 10 MG Oral Tablet (Prinivil)Indic ations:HTN, goal below 140/90 Take 1 Tablet by mouth in the morning. 90 Tablet 1 4 Active amLODIPine Besylate 5 MG Oral Tablet (Norvasc) Take 1 Tablet by mouth in the morning. 90 Tablet 1 4 Active Atorvastatin Calcium 40 MG Oral Tablet (Lipitor)Indica tions:Dyslipide sumanth, goal LDL below 100 Take 1 Tablet by mouth daily. 90 Tablet 1 4 Active Latanoprost 0.005 % Ophthalmic Solution (Xalatan)Indica tions:Other glaucoma of both eyes Instill 1 drop into both eyes once daily 2.5 mL 12 4 Active Fluticasone Propionate 50 MCG/ACT Nasal Suspension (Flonase)Indica tions:Nasal polyp Administer 2 Sprays into each nostril in the morning. 48 g 3 4 Active Hospital, Clinic, or Other Facility Administered Medication Ordered Dose Route Frequency Start Date End Date Status Faricimab-svoa (Vabysmo) intravitreal inj 6 mgIndications:Exudative 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 with active choroidal neovascularization (HCC) 6 mg IZ PRN 06/24/2023 06/23/2024 Active ROPivacaine (Naropin) inj 1.5 mgIndications:Exudative 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 with active choroidal neovascularization (HCC) 1.5 mg IJ PRN 06/24/2023 06/23/2024 Active documented as of this encounter (statuses as of 03/23/2024) Active Problems Problem Noted Date Diagnosed Date [...] in the Comments) Remote Patient Monitoring Vendor: [facility] Device(s): Connected Scale Self - Management Plan [...] Continue injections Coronary artery disease invo lving newtok coronary artery of newtok heart without angina pectoris 05/10/2018 Assessment & [...] as of this encounter (statuses as of 03/23/2024) Resolved Problems Problem Noted Date Diagnosed Date [...] externa, chronic 08/24/201207/08 Resolute Integrity Clinical Trial [id number] 05/18/2012 05/16/2013 Overview: Renamed per the Centers for Medicare and Medicaid billing requirements to include Clinical Trial.gov number. Resolute Integrity Clinical Trial [id number] 05/18/2012 04/01/2014 Overview: Renamed per the Centers for Medicare and Medicaid billing requirements to include Clinical Trial.gov number. [employer] Other*[id number] 04/17/2012 06/15/2016 Overview (04/17/2012): Study Title: Genomic Markers for Patients with Cardiovascular Disease Project # [id number] Perinatal Specialist: Jennifer Xiong MD [phone] HTN, GOAL BELOW 140/80 12/27/201108/13 Overview: Per [...] as of this encounter (statuses as of 03/23/2024) Immunizations Name Administration Dates Next Due COVID-19 [...] (Prevnar) 02/14/2015 Pneumococcal Conjugate Vacci ne, 20-valent ([id number]) 01/26/2024 Pneumococcal Polysaccharide PPV23 (Pneumovax) 06/16/2012 RSV [...] ages 0-17 years) Not on file 08/23/2023 Sex and Gender Information Value Date [...] Sign Reading Time Taken Comments Blood Pressure 126/72 03/23/2024 3:51 PM EST Pulse 78 03/23/2024 3:51 PM EST Temperature 35.9 °C (96.7 °F) 03/23/2024 3:51 PM ES T Respiratory Rate 16 03/23/2024 3:51 PM EST Oxygen Saturation 96% 03/23/2024 3:51 PM EST Inhaled Oxygen Concentration - - Weight 75.8 kg (167 lb 3.2 oz) 03/23/2024 3:51 P M EST Height 160.7 cm (5' 3.25") 03/23/2024 3:51 PM ES T Body Mass Index 29.38 03/23/2024 3:51 PM EST documented in this encounter Functional [...] in this encounter Progress Notes * Zafar Tinajero, DO - 03/23/2024 4:19 PM EST SUBJECTIVE: Star Sepulveda is a 88 year old male. Chief Complaint Patient presents with Follow Up HPI: Patient is an 88 year old male with a history of COPD, Hyperlipidemia, Adenocarcinoma of the left Lung treated with Radiation, CAD, BPH, LAD Stent, Nasal Polyps, macular Degeneration, DM Type II, Diastolic CHF, and Glaucoma that is seen for follow up. Chronic shortness of breath is stable. No chestpain is present. Appetite is good and weight is stable. Vision continues to worsen. He was brought to the visit by his daughter today. 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 180 Each 2 Lisinopril 10 MG Oral Tablet (Prinivil) Take 1 Tablet by mouth in the morning. 90 Tablet 1 amLODIPine Besylate 5 MG Oral Tablet (Norvasc) Take 1 Tablet by mouth in the morning. 90 Tablet 1 Atorvastatin Calcium 40 MG Oral Tablet (Lipitor) Take 1 Tablet by mouth daily. 90 Tablet 1 Fluticasone Propionate 50 MCG/ACT Nasal Suspension (Flonase) Administer 2 Sprays into each nostril in the morning. 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 DM type 2, not at goal (HCC) Dyslipidemia, goal LDL below 100 04/17/2009 Per Lipid Taxonomy. ELEVATED PROSTATE SPECIFIC ANTIGEN 03/06/1999 Esophageal reflux 08/24/2012 Excessive cerumen in ear canal 08/24/2012 [employer] Other*[id number] 04/17/2012 Study Title: Genomic Markers for Patients with Cardiovascular Disease Project # [id number] PrincipalInvestigator: Jennifer Xiong MD [phone] GLAUCOMA NEC 08/09/1999 HTN, goal below 140/80 12/27/2011 Per HTN Protocol #27. Hx of corneal abrasion LIPOMA SKIN NEC 05/13/2003 Lung nodule Macular degeneration 04/10/2014 OD wet Eylea injections started, Dr. Yap NASAL POLYP NOS 11/22/2001 Nasal polyps 08/24/2012 Otitis externa, chronic 08/24/2012 Prediabetes 10/18/2023 Presence of drug coated stent in LAD coronary artery 04/19/2012 Resolute Integrity Clinical Trial [id number] 05/18/2012 Renamed per the [facility] for Medicare and Medicaid billing requirements to include Clinical Trial.gov number. Seasonal allergies Sensorineural hearing loss, bilateral 08/24/2012 Sleep-disordered breathing 08/24/2012 Smell and taste disorder 02/07/2013 Snoring disorder 08/24/2012 Type 2 diabetes mellitus with hemoglobin A1c goal of less than 7.0% ([facility]) 03/06/2009 Per Diabetes Taxonomy. ICD-10 update of inactive term Past Surgical History: Procedure Laterality Date COLONOSCOPY W/ BIOPSY (RECTUM) 12/14/2006 Tubular adenoma polyp of colon (2) ; repeat in 5 years COLONOSCOPY, DIAGNOSTIC (RECTUM) 08/1998 Negative for polyps COLONOSCOPY, DIAGNOSTIC (RECTUM) 04/08/2015 COLONOSCOPY FLEXIBLE PROXIMAL DIAGNOSTIC performed by Peña Moss MD at ENDOSCOPY [facility] COLONOSCOPY, DIAGNOSTIC (RECTUM) N/A 02/26/2020 COLONOSCOPY FLEXIBLE PROXIMAL DIAGNOSTIC performed by Yovani Saldivar MD at ENDOSCOPY [facility] COLONOSCOPY, REMOVE LESION 12/2003 tubular adenoma transverse colon-repeat in 3 years COLORECTAL CANCER SCREEN; COLON 01/20/2009 repeat in 5 years CORONARY ANGIOGRAPHY W/LEFT HEART CATH 04/17/2012 CORONARY ANGIOGRAPHY W/LEFT HEART CATH performed by Jennifer Xiong MD at CARDIAC LABS [facility] CYSTOSCOPY 02/2005 Dr. Leroy- benign, enlarged prostate EGD, FLEXIBLE, DIAGNOSTIC N/A 02/26/2020 ESOPHAGOGASTRODUODENOSCOPY (EGD), FLEXIBLE, TRANSORAL, DIAGNOSTIC performed by Yovani Saldivar MD atENDOSCOPY [facility] EXPLORE, TREAT ANKLE JOINT 07/2005 ORIF fracture left leg/ankle- Dr. Mckenzie INJECTION OF EYE DRUG Right 04/10/2014 # 1 Eynithina OD, Dr. Yap INJECTION OF EYE DRUG Right 05/06/2014 #2 Davida OD, Dr. Yap INJECTION OF EYE DRUG Right 06/06/2014 # 3 Eynithina OD, INJECTION OF EYE DRUG Right 07/09/2014 [...] 03/08/2024 # 6 Vabysmo OS, Dr. Yap INTRAVASCULAR STENT, OPEN, [...] Positive for congestion, postnasal drip and rhinorrhea. Respiratory: Positive for shortness of breath. Negative [...] decreased concentration and sleep disturbance. OBJECTIVE: BP 126/72 | Pulse 78 | Temp 35.9 °C (96.7 °F) | Resp 16 | Ht 1.607 m (5' 3.25") | Wt 75.8 kg (167lb 3.2 oz) | SpO2 96% | BMI 29.38 kg/m² | BSA 1.84 m² Physical Exam Vitals and nursing note [...] soft. Tenderness: There is no abdominal tenderness. Musculoskeletal: Right lower leg: No edema. Left lower leg: No edema. Neurological: Mental Status: He is alert and oriented to person, place, and time. Mental status is at baseline. Motor: No weakness. Gait: Gait normal. Psychiatric: Mood and Affect: Mood normal. Behavior: Behavior normal. Thought Content: Thought content normal. PLAN AND ASSESSMENT: COPD, group B, by GOLD 2017 classification ([facility]) (Primary) Continue Advair Controlled type 2 diabetes mellitus without complication, without long-term current use of insulin ([facility]) - ALBUMIN / CREATININE RATIO, URINE; Future; Expected date: 03/23/2024 - HEMOGLOBIN A1C; Future; Expected date: 03/23/2024 - HEMOGLOBIN A1C Diet controlled Chronic diastolic heart failure ([facility]) Continue Lisinopril Bilateral exudative age-related macular degeneration, unspecified stage ([facility]) Continue to follow with Dr. 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 Zafar Tinajero DO 4:19 PM 03/23/2024 documented in this encounter Nursing Notes * Irma Arce LPN - 03/23/2024 3:50 PM EST Here for follow up, has had a bit of a cough. documented in this encounter Plan of Treatment Upcoming Encounters Date Type Department Care Team (Late st Contact Info) Description 03/29/2024 11:40 AM EST Office Visit Otolaryngology [facility] [address] [place] [address] Mimi Jordan PA-C [address] [place] [address] 04/25/2024 1:45 PM EST Office Visit Ophthalmology, [facility] [address] [place] [address] Rohith Yap DO [address] [place] [address] 06/05/2024 2:00 PM EST Office Visit Podiatry [facility] [address] [place] [address] Jen Bourne DPM [address] [place] [address] 06/25/2024 3:40 PM EST Office Visit Family Practice [address] [place] [address] [facility], [place] [address] Zafar Tinajero, DO [address] [facility], [place] [address] 07/03/2024 11:45 AM EST Office Visit Urology, [facility] [address] [facility] [place] [address] Josh Savage MD [address] [place] [address] 09/04/2024 3:00 PM EDT Office Visit Allergy/Immunology [facility] [address] [place] [address] Dameon Vasquez MD [address] [facility] [place] [address] 09/19/2024 2:30 PM EDT Imaging Radiology [facility] [address] [facility] [place] [address] 10/15/2024 11:00 AM EDT Office Visit Cardiology, [facility] [address] [facility] [place] [address] Bakari Yu, DO [facility] [place] [address] 01/08/2025 2:00 PM EDT Office Visit Allergy/Immunology [facility] [address] [place] [address] Britta Sullivan PA-C [address] [facility] [place] [address] Pending Results Name Type Priority Associated Diagnoses Date /Time ALBUMIN / CREATININE RATIO, URINE Lab Routine Controlled type 2 diabetes mellitus without complication, without long-term current use of insulin ([facility]) 03/23/2024 4:21 PM EST HEMOGLOBIN A1C Lab Routine Controlled type 2 diabetes mellitus without complication, without long-term current use of insulin (HCC) 03/23/2024 4:18 PM EST Scheduled Orders Name Type Priority Associated Diagnoses Orde r Schedule ALBUMIN / CREATININE RATIO, URINE Lab Routine Controlled type 2 diabetes mellitus without complication, without long-term current use of insulin (HCC) Expected: 03/23/2024, Expires: 03/23/2025 HEMOGLOBIN A1C Lab Routine Controlled type 2 diabetes mellitus without complication, without long-term current use of insulin (HCC) Expected: 03/23/2024 (Approximate), Expires: 03/23/2025 Health Maintenance Due Date Last Done Comments Adult Wellness Visit 10/23/2001 HbA1c 12/13/2023 06/14/2023, 10/07, 06/22/2022, Additional history exists Albumin/Creatinine Ratio 06/14/2024 024, 06/22/2022, 06/19/2021, Additional history exists Depression Screening 06/14/2024 06/14/2023 Diabetic Foot Exam 06/14/2024 06/14/2023, 0 06/22/2022, 06/19/2021, Additional history exists Diabetic Eye Exam 03/08/2025 [...] , 02/24/2022, Additional history exists Pneumococcal Vaccine: 65+ Years Completed 01/26/2024, 02/14/2015, 06/16/2012, Additional history [...] diastolic heart failure 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 Hypertensive heart disease [...] diastolic heart failure 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 Hypertensive heart disease [...] Advanced care planning/counseling discussion Other specified counseling COPD, group B, by GOLD 2017 classification (HCC)- Primary Controlled type 2 diabetes mellitus without complication, without long-term current use of insulin (HCC) Chronic diastolic heart failure (HCC) Chronic diastolic heart failure Bilateral exudative age-related macular degeneration, unspecified stage (HCC) Adenocarcinoma, lung, left (HCC) Dyslipidemia, goal LDL below 100 Other and unspecified hyperlipidemia Presence of drug coated stent in LAD coronary artery Postsurgical percutaneous transluminal coronary angioplasty status Hypertensive heart disease with chronic diastolic congestive heart failure (HCC) 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 Yes, in chart and reviewed as current [...] Grey t (per Health Care Power of Etl Database Developer document) [email or web address] Care Teams Go Go Dancer Relationship Specialty Start Date End Date Zafar Tinajero DO [address] [place] [address] PCP - General Internal Medicine 12/27/23 documented as of this encounter
--- OUTSIDE RECORDS SUMMARY | 2024-08-10 07:24 | External Medical Summary | Summary of Care ---
Author Name Unknown Organization [facility] Address [address] [place] [address] Phone [phone] Care Team Providers Care Car Dumper Operator Helper Name Role Phone Zafar Tinajero DO Primary Care Provider [phone] Encounter Details Date Type Department Care Team (Late st Contact Info) Description 05/28/2024 Population Health External Data Unspecified Department Allergies Active Allergy Reactions Criticality Noted Date Comments Codeine Sulfate High 08/05/2010 Throat swelling Oxycodone-Acetaminophen 08/22/2023 documented as of this encounter (statuses as of 05/28/2024) Medications ASPIRIN 81 MG PO CHEWIndications :INTERFACED [...] the morning. 90 Capsule 3 3 Active Fluticasone-Irwni meterol 250-50 MCG/ACT Inhalation Aerosol Powder Breath [...] 1.5 mg IJ PRN 06/24/2023 06/23/2024 Active Faricimab-svoa (Vabysmo) prefilled syringe inj 6 mgIndications:Exudative 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 with active choroidal neovascularization (HCC) 6 mg IZ PRN 04/25/2024 04/25/2025 Active documented as of this encounter (statuses as of 05/28/2024) Active Problems Problem Noted Date Diagnosed Date [...] in the Comments) Remote Patient Monitoring Vendor: [facility] Device(s): Connected Scale Self - Management [...] Continue injections Coronary artery disease invo lving anvik coronary artery of anvik heart without angina pectoris 05/10/2018 Assessment & [...] as of this encounter (statuses as of 05/28/2024) Resolved Problems Problem Noted Date Diagnosed Date [...] externa, chronic 08/24/201207/08 Resolute Integrity Clinical Trial [id number] 05/18/2012 05/16/2013 Overview: Renamed per the Centers for Medicare and Medicaid billing requirements to include Clinical Trial.gov number. Res[employer] Integrity Clinical Trial [id number] 05/18/2012 04/01/2014 Overview: Renamed per the Centers for Medicare and Medicaid billing requirements to include Clinical Trial.gov number. [employer] Other*[id number] 04/17/2012 06/15/2016 Overview (04/17/2012): Study Title: Genomic Markers for Patients with Cardiovascular Disease Project # [id number] Oyster Harvester: Jennifer Xiong MD [phone] HTN, GOAL BELOW 140/80 12/27/201108/13 Overview: Per [...] as of this encounter (statuses as of 05/28/2024) Immunizations Name Administration Dates Next Due COVID-19 [...] (Prevnar) 02/14/2015 Pneumococcal Conjugate Vacci ne, 20-valent (Denbeut75) 01/26/2024 Pneumococcal Polysaccharide PPV23 (Pneumovax) 06/16/2012 RSV [...] Care Team (Late st Contact Info) Description 06/05/2024 2:00 PM EST Office Visit Podiatry [facility] [address] [place] [phone] Jen Bourne DPM [address] [place] [address] 06/15/2024 11:30 AM EST Office Visit Ophthalmology, [facility] [address] [place] [address] Rohith Yap, DO [address] [place] [address] 06/25/2024 3:40 PM EST Office Visit Family Practice [address] [place] [address] 293 [place] [address] Zafar Tinajero, 293 [place] [address] 07/03/2024 11:45 AM EST Office Visit Urology, [facility] [address] [place] [address] Josh Savage MD [address] [place] [address] 09/19/2024 2:30 PM EDT Imaging Radiology [facility] 1st Floor, [place] [address] [place] [phone] 10/15/2024 11:00 AM EDT Office Visit [facility] [place] [address] Bakari Yu, [address] [place] [address] 01/08/2025 2:00 PM EDT Office Visit [facility] [address] [place] [address] Britta Sullivan PA-C [address] [place] [address] Health Maintenance Due Date Last Done Comments Adult Wellness Visit 10/23/2001 Depression Screening 06/14/2024 06/14/2023 Diabetic Foot Exam 06/14/2024 06/14/2023, 0 06/22/2022, 06/19/2021, Additional history exists HbA1c 09/20/2024 03/23/2024, 020 10/2023, 10/20/2022, Additional history exists Diabetic Eye [...] Not on filedocumented as of this encounter Advance Directives Documents on File Type Date Recorded Patient Tanning Drum Operator Expl anation POLST 12/09/2022 10:36 AM [...] the patient have Health Care Power of Job Putter Up And Ticket Preparer? Yes, in chart and reviewed as current [...] Grey jung (per Health Care Power of Job Putter Up And Ticket Preparer document) [email or web address] Car Dumper Operator Helper Relationship Specialty Start Date End Date Sulman, Zafar A, DO [address] [facility] [place] [address] PCP - General Internal Medicine 12/27/23 documented as of this encounter
--- OUTSIDE RECORDS SUMMARY | 2024-08-10 07:24 | External Medical Summary | Summary of Care ---
Author Name Unknown Organization [facility] Address [address] [place] [address] Phone [phone] Care Team Providers Care Director Call Name Role Phone Zafar Tinajero DO Primary Care Provider Reason for Visit * Reason Comments Follow Up * Precert (Within 10 days (routine)) - Authorized Specialty Diagnoses / Procedures Referred By Abigail jung Referred To Contact Ophthalmology Diagnoses Exudative age-related macular degeneration, left eye, with inactive choroidal neovascularization (HCC) Procedures ME INJECTION, FARICIMAB-SVOA, 0.1 MG ME INTRAVITREAL NJX PHARMACOLOGIC AGT SPX Rohith Yap DO [address] [facility] [place] [address] Phone: tel: fax: Ophthalmology, [facility] [address] [facility] [place] [address] Phone: tel: fax: Referral ID Status Reason Start Date Expiration Date V isits Requested Visits Authorized [id number] Authorized Precert 05/20/2023 05/08/2099 [id number] Encounter Details Date Type Department Care Team (Late st Contact Info) Description 04/25/2024 1:45 PM EST Office Visit Ophthalmology, [facility] [address] [place] [address] Rohith Yap, DO [address] [place] [address] Exudative 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 with active choroidal neovascularization (HCC)* Allergies Active Allergy Reactions Criticality Noted Date Comments Codeine Sulfate High 08/05/2010 Throat swelling Oxycodone-Acetaminophen 08/22/2023 documented as of this encounter (statuses as of 04/25/2024) Medications ASPIRIN 81 MG PO CHEWIndications :INTERFACED RESULT take one tablet daily 30 Tab 11 2 Active PRESERVISION AREDS 2 PO CAPS Take 1 capsule by mouth twice daily Active Glucose Blood ([employer]TOUCH VERIO) STRP Test blood sugar twice [...] as of this encounter (statuses as of 04/25/2024) Active Problems Problem Noted Date Diagnosed Date [...] in the Comments) Remote Patient Monitoring Vendor: [facility] Device(s): Connected Scale Self - Management Plan [...] Continue injections Coronary artery disease invo lving [place] coronary artery of [place] heart without angina pectoris 05/10/2018 Assessment & [...] as of this encounter (statuses as of 04/25/2024) Resolved Problems Problem Noted Date Diagnosed Date [...] ear canal 08/24/2012 12/07/2016 Otitis externa, chronic 08/24/2012 03/2 Resolute Integrity Clinical Trial [id number] 05/18/2012 05/16/2013 Overview: Renamed per the Centers for Medicare and Medicaid billing requirements to include Clinical Trial.gov number. Resolute Integrity Clinical Trial [id number] 05/18/2012 04/01/2014 Overview: Renamed per the Centers for Medicare and Medicaid billing requirements to include Clinical Trial.gov number. [employer] Other*[id number] 04/17/2012 06/15/2016 Overview (04/17/2012): Study Title: Genomic Markers for Patients with Cardiovascular Disease Project # [id number] Presidential Support Specialist: Jennifer Xiong MD [phone] HTN, GOAL BELOW 140/80 12/27/201108/13 Overview: Per [...] as of this encounter (statuses as of 04/25/2024) Immunizations Name Administration Dates Next Due COVID-19 mRNA, LNP-s, No Pre serve, 2-Dose Series (Moderna) 07/18/2020,06/06/2020 COVID-19, MRNA-LNP, PF, 30 M CG/0.3 mL, 12 YRS AND ABOVE, IM (PFIZER-Comirnaty) 01/26/2024,03/23/2023 COVID-19, mRNA, LNP-s, PF, B ooster, 100mcg/0.5mg (Moderna) 09/01/2021,03/02/2021 Covid-19, Mrna, Lnp-s, Pf, B ivalent, 30 Mcg, IM, 12 yrs and above (Pfizer) 02/24/2022 Diptheria/Tetanus (Adult) 03/05/1997 Pneumococcal Conjugate Vacc, 13 Valent (Prevnar) 02/14/2015 Pneumococcal Conjugate Vacci ne, 20-valent (Akoyrhu08) 01/26/2024 Pneumococcal Conjugate Vacci ne, 7 Valent 04/26/2003 Pneumococcal Polysaccharide PPV23 (Pneumovax) 06/16/2012,03/31/1998,01/07/1989 RSV Vac., Bivalent, Perfusio n F, Pf,0.5 Ml (Abrysvo) 04/13/2023 Season Influenza, Quad, PF, Adjuvanted, 65+ Yrs, IM (FLUAD) 01/16/2020 Seasonal Influenza Vac., MDV , IM, 0.5 mL (Fluzone) 02/20/2016,02/18/2014,02/05/2013,03/22,03/11/2011,03/23/2010,02/07/2009 ,03/08/2008,02/14/2007,02/24/2006,02/06,03/09/2004,03/12/2003, 2,02/25/2001,03/23/2000,02/17/1999 Seasonal Influenza Virus Vac cine, Unspecified Formulation 03/31/1998,03/30/1997 Seasonal Influenza, High Dos e, Trivalent, PF, [...] Progress Notes * Rohith Yap, DO - 04/25/2024 1:45 PM EST [facility] [place] Nursing Notes: Amina Green RN 04/25/24 1355 Signed Star Sepulveda is a 88 year old year old male who presents for AMD OU. Last Office Visit: 03/08/2024 (in office), Visit date not found (telemedicine) Patient currently states no change in vision. Are you diabetic? Yes. Do you check your blood sugars daily? YES. Did not measure this morning. Last Hemoglobin A1C: Lab Results Component Value Date/Time HGBA1C 6.0 (H) 03/23/2024 04:18 PM HGBA1C 6.2 (H) 06/14/2023 03:20 PM HGBA1C 5.6 10/20/2022 02:49 PM HGBA1C 6.0 (H) 11/21/2020 02:25 PM HGBA1C 6.2 (H) 02/11/2020 03:20 PM HGBA1C 6.2 (H) 10/10/2019 10:22 AM HGBA1C 6.4 (H) 03/20/2019 01:36 PM HGBA1C 5.7 01/16/1996 09:[address]? no OCT image(s) of left eye acquired and filed/scanned into chart. Base Eye Exam Visual Acuity (Snellen - Linear) Right Left Dist sc 20/400 -2 20/350 -1 Dist ph sc NI NI Tonometry (1:54 PM) Right Left Pressure 19 20 Pupils Dark Light Shape React APD Right 1 1 Round none None Left 1 1 Round none None Visual Galvez (Counting fingers) Right Left Full Full Extraocular Movement Right Left Full, Ortho Full, Ortho Neuro/Psych Oriented x3: Yes Mood/Affect: Normal Dilation Both eyes: 0.5% Proparacaine @ 1:53 PM Dilation #2 Left eye: 1.0% Mydriacyl, 2.5% Phenylephrine @ 1:53 PM Dilation #3 Left eye: 1.0% Mydriacyl, 2.5% Phenylephrine @ 1:55 PM Dilation Comments Patient cautioned that effects [...] s/p Lucentis (10-20-17, 09-14-17) - s/p Eylea (05-23-19, 04-11-19, 19, 19, 19, 19, 09-06-18, 19, 19, 18, 02/08/18, 01/04/18...18, 06-28-18, 18, 17, 03/03/17, 01-27-17, 12-30-17, 17, 10-06-16, 09/01/16) -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 no matter which anti-VEGF used, persistent ongoing srfluid - Lucentis (08-08-19) - Eylea (01/20/23, 11/04/22-Fresh heme 11/04/2022 , 07/26/22, 05/24/22, 04/07/22, 01/01/22, 11/30/21, 10/12/21, 08/24/21, 07/10/21, 06/05/21, 04/27/21, 03/23/21, 02/06/21, 12-31-20, 11-19-20, 10/02/20, 08-21-20, 07-16-20, 06-11-20, 04-30-20, 03-25-20, 02-12-20, 01/08/20, 11-29-19, 10-18-19, 09-20-19)--improved - worse at 12 weeks; good in past at 15 weeks -Avastin 05/19/23, 04/07/23, 03/03/23 -Vabysmo 03/08/24, 01/18/24, 12/02/23, 10/14/23, 08/22/23, 06/24/2023 -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 Correct eye confirmed with patient and marked by Rohith Yap DO Vabysmo 6mg lot # [id number] Exp. Date: 07/2025 * Amina Green RN - 04/25/2024 1:46 PM EST Star Sepulveda is a 88 year old year old male who presents for AMD OU. Last Office Visit: 03/08/2024 (in office), Visit date not found (telemedicine) Patient currently states no change in vision. Are you diabetic? Yes. Do you check your blood sugars daily? YES. Did not measure this morning. Last Hemoglobin A1C: Lab Results Component Value Date/Time HGBA1C 6.0 (H) 03/23/2024 04:18 PM HGBA1C 6.2 (H) 06/14/2023 03:20 PM HGBA1C 5.6 10/20/2022 02:49 PM HGBA1C 6.0 (H) 11/21/2020 02:25 PM HGBA1C 6.2 (H) 02/11/2020 03:20 PM HGBA1C 6.2 (H) 10/10/2019 10:22 AM HGBA1C 6.4 (H) 03/20/2019 01:36 PM HGBA1C 5.7 01/16/1996 09:[address]? no OCT image(s) of left eye acquired and filed/scanned into chart. documented in this encounter Plan of Treatment Upcoming Encounters Date Type Department Care Team (Late st Contact Info) Description 06/05/2024 2:00 PM EST Office Visit Podiatry [facility] [address] [place] [address] Jen Bourne DPM [address] [place] [address] 06/15/2024 11:30 AM EST Office Visit Ophthalmology, [facility] [address] [place] [address] Rohith Yap, DO [address] [place] [address] 06/25/2024 3:40 PM EST Office Visit Family Practice [address] [facility] [place] [address] [facility] [place] [address] Zafar Tinajero, DO [address] [place] [address] 07/03/2024 11:45 AM EST Office Visit Urology, [facility] [address] [facility] [place] [address] Josh Savage MD [address] [place] [address] 09/04/2024 3:00 PM EDT Office Visit Allergy/Immunology [facility] [address] [place] [place] [address] Dameon Vasquez MD [facility] [place] [address] 09/19/2024 2:30 PM EDT Imaging Radiology [facility] [address] [facility] [place] [address] 10/15/2024 11:00 AM EDT Office Visit Cardiology, [facility] [address] [facility] [place] [address] Bakari Yu, DO [address] [facility] [place] [address] 01/08/2025 2:00 PM EDT Office Visit Allergy/Immunology [facility] [address] [place] [address] Britta Sullivan PA-C [address] [place] [address] Health Maintenance Due Date Last Done Comments [...] diastolic heart failure Coronary artery disease involving [place] coronary artery of [place] heart without angina pectoris Hypertensive heart disease [...] diastolic heart failure Coronary artery disease involving [place] coronary artery of [place] heart without angina pectoris Hypertensive heart disease [...] eye with active choroidal neovascularization (HCC) Given 04/25/2024 2:34 PM EST 6 mg Eye Left ROPivacaine (Naropin) inj 1.5 mg 1.5 mg, Injection, PRN Other, Starting on Tue06/24/23 at 1246, Until 06/23/24 at 1245, For 365 daysIndications:Exudative 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 with active choroidal neovascularization (HCC) Given 04/25/2024 2:35 PM EST 1.5 mg Given 03/08/2024 11:41 AM EDT 1.5 mg E ye Left Given 01/18/2024 8:14 AM EDT 1.5 mg Ey e Left documented in this encounter Advance Directives Documents on File Type Date Recorded 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 Yes, in chart and reviewed as current [...] Agen t (per Health Care Power of Windshield Technician document) [email or web address] Care Teams Director Call Relationship Specialty Start Date End Date Zafar Tinajero DO [address] [place] [address] PCP - General Internal Medicine 12/27/23 documented as of this encounter
--- OUTSIDE RECORDS SUMMARY | 2024-08-10 07:24 | External Medical Summary ---
Author Name Unknown Address Unknown Organization K01:[facility] [place] - [address] [facility] [address] Laboratory Report Ordering Provider Test Date Status JORDAN PORTER 03/23/2024 16:18:42 Final Observation Date Value Abnormality Reference (Units ) Status HbA1C 03/23/2024 16:18:42 6.0 Above high normal 4. 0-5.6 (%) Final The use of HbA1c to monitor glycemic status is based on normal hemoglobin and HbA composition. This test should not be used in patients with abnormal hemoglobin that affects the half life of the red blood cell or the in vivo glycation rates. Glucose, estimated average 03/23/2024 16:18:42 126 Above high normal <126 (mg/dL) Mike rollins Performing Location [facility] [place] - [address] [facility] [address]
--- OUTSIDE RECORDS SUMMARY | 2024-08-10 07:24 | External Medical Summary | Summary of Care ---
Author Name Unknown Organization [facility] Address [address] [place] [address] Phone [phone] Care Team Providers Care Fur Ironer Name Role Phone German Tinajero DO Primary Care Provider [phone] Reason for Visit * Reason Onset Date Comments Medication Refill 04/25/2024 Encounter Details Date Type Department Care Team (Late st Contact Info) Description 04/25/2024 Refill Family Practice [facility] [address] [place] [id number] German Tinajero DO [address] [place] [address] Dyslipidemia, goal LDL below 100; HTN, goal below 140/90 Allergies Active Allergy Reactions Criticality Noted Date Comments Codeine Sulfate High 08/05/2010 Throat swelling Oxycodone-Acetaminophen 08/22/2023 documented as of this encounter (statuses as of 04/26/2024) Medications ASPIRIN 81 MG PO CHEWIndication s:INTERFACED [...] the morning. 90 Capsule 3 3 Active Fluticasone-Sa lmeterol 250-50 MCG/ACT Inhalation Aerosol Powder Breath Activated (Advair Diskus) Inhale 1 Puff by mouth in the morning and 1 Puff before bedtime. 180 Each 2 4 Active Latanoprost 0.005 % Ophthalmic Solution (Xalatan)Indic [...] 4 Active Lisinopril 10 MG Oral Tablet (Prinivil)Jazmin cations:HTN, goal below 140/90 Take 1 Tablet by mouth in the morning. 90 Tablet 1 4 Active amLODIPine Besylate 5 MG Oral Tablet (Norvasc) Take 1 Tablet by mouth in the morning. 90 Tablet 1 4 Active Lisinopril 10 MG Oral Tablet (Prinivil)Jazmin cations:HTN, goal below 140/90 Take 1 Tablet by mouth in the morning. 90 Tablet 1 4 04/25/20 24 Discontinu ed(Refill) amLODIPine Besylate 5 MG Oral Tablet (Norvasc) Take 1 Tablet by mouth in the morning. 90 Tablet 1 4 04/25/20 24 Discontinu ed(Refill) Atorvastatin Calcium 40 MG Oral Tablet (Lipitor)Indic ations:Dyslipi demia, goal LDL below 100 Take 1 Tablet by mouth daily. 90 Tablet 1 4 04/25/20 24 Discontinu ed(Refill) Hospital, Clinic, or Other Facility Administered Medication [...] as of this encounter (statuses as of 04/26/2024) Active Problems Problem Noted Date Diagnosed Date [...] in the Comments) Remote Patient Monitoring Vendor: [facility] Device(s): Connected Scale Self - Management Plan [...] Continue injections Coronary artery disease invo lving [place] coronary artery of [place] heart without angina pectoris 05/10/2018 Assessment & [...] as of this encounter (statuses as of 04/26/2024) Resolved Problems Problem Noted Date Diagnosed Date [...] externa, chronic 08/24/201207/08 Res[employer] Integrity Clinical Trial [id number] 05/18/2012 05/16/2013 Overview: Renamed per the Centers for Medicare and Medicaid billing requirements to include Clinical Trial.gov number. Resolute Integrity Clinical Trial [id number] 05/18/2012 04/01/2014 Overview: Renamed per the Centers for Medicare and Medicaid billing requirements to include Clinical Trial.gov number. [employer] Other*[id number] 04/17/2012 06/15/2016 Overview (04/17/2012): Study Title: Genomic Markers for Patients with Cardiovascular Disease Project # [id number] Street Contractor: Jennifer Xiong MD [phone] HTN, GOAL BELOW 140/80 12/27/201108/13 Overview: Per [...] as of this encounter (statuses as of 04/26/2024) Immunizations Name Administration Dates Next Due COVID-19 [...] (Prevnar) 02/14/2015 Pneumococcal Conjugate Vacci ne, 20-valent ([id number]) 01/26/2024 Pneumococcal Polysaccharide PPV23 (Pneumovax) 06/16/2012 RSV [...] Author No 11/01/2016 10:30 PM EDT Palak Yuo RN * Do you have serious difficulty [...] of Assessment Author No 11/01/2016 10:30 PM ALLYSONT Palak You RN documented as of this encounter Mental Status * Because of a physical, mental, or emotional condition, do you have serious difficulty concentrating, remembering, or making decisions? (5 years old or older) Answer Entry Date Author No 11/01/2016 10:30 PM ALLYSONT Palak You RN documented in this encounter Miscellaneous Notes * [facility] 9:50 AM ESTSigned Prescriptions: Disp Refills Atorvastatin Calcium 40 MG Oral Tablet (Li*90 Tab*1 Sig: Take 1Tablet by mouth daily.Authorizing Provider: GERMAN TINAJERO [facility] User: JOSE AREVALO Lisinopril 10 MG Oral Tablet (Prinivil) 90 Tab*1 Sig: Take 1 Tablet by mouth in the morning.Authorizing Provider: GERMAN TINAJERO User: JOSE AREVALO amLODIPine Besylate 5 MG Oral Tablet (Norv*90 Tab*1 Sig: Take 1 Tablet by mouth in the morning.Authorizing Provider: GERMAN TINAJERO User: JOSE AERVALO * Telephone Encounter - Abe Lopez [facility] - 04/25/2024 9:03 AM EST Did you pend patient's preferred pharmacy and medication before forwarding?yes Pharmacy: [facility] [id number] [place] Pending Prescriptions: Disp Refills Atorvastatin Calcium 40 MG Oral Tablet (L*90 Tab*1 Sig: Take 1 Tablet by mouth daily. Lisinopril 10 MG Oral Tablet (Prinivil) 90 Tab*1 Sig: Take 1 Tablet by mouth in the morning. amLODIPine Besylate 5 MG Oral Tablet (Nor*90 Tab*1 Sig: Take 1 Tablet by mouth in the morning. Last Visit: 03/23/2024 (in office), 09/23/2023 (telemedicine) Next Visit: 06/25/2024 If no future appointments scheduled, and last appointment is greater than a year ago, please schedule patient for a follow-up appointment Last date the medication was ordered: 11/08/2023 Is this request for a controlled substance?No Urine Drug Screen:No results found. However, due to the size of the patient record, not all encounters were searched. Please check Results Review for a complete set of results. Patient Phone Numbers Labs: Lab Results Component Value Date/Time CREAT 0.8 06/14/2023 03:20 PM CREAT 0.68 04/03/2022 12:00 AM CREAT 0.8 10/10/2019 10:22 AM POTASSIUM 5.1 06/14/2023 03:20 PM POTASSIUM 4.1 04/03/2022 12:00 AM POTASSIUM 4.7 10/10/2019 10:22 AM TSH 2.08 10/10/2019 10:22 AM LDL 42 06/14/2023 03:20 PM LDL 39 10/10/2019 10:22 AM LDL NOT APPLICABLE 10/10/2019 10:22 AM ALT 20 06/14/2023 03:20 PM ALT 21 10/10/2019 10:22 AM HGBA1C 6.0 (H) 03/23/2024 04:18 PM HGBA1C 6.0 (H) 11/21/2020 02:25 PM HGBA1C 6.2 (H) 02/11/2020 03:20 PM HGBA1C 5.7 01/16/1996 09:45 AM Thank you, Ricky Lopez ([facility]) Paint Formulator III [facility] 04/25/2024, 9:04 AM documented in this encounter Plan of Treatment Upcoming Encounters Date Type Department Care Team (Late st Contact Info) Description 06/05/2024 2:00 PM EST Office Visit Podiatry [facility] [address] [facility] [place] [address] Jen Bourne DPM [address] [place] [address] 06/15/2024 11:30 AM EST Office Visit Ophthalmology, [facility] [address] [facility] [place] [address] Rohith Yap DO [address] [place] [address] 06/25/2024 3:40 PM EST Office Visit Family Practice [address] [place] [address] [facility] [address] German Tinajero, DO 293 [facility], [place] [address] 07/03/2024 11:45 AM EST Office Visit Urology, [facility] 132 [facility] [place] [address] Josh Savage MD [address] [place] [address] 09/04/2024 3:00 PM EDT Office Visit Allergy/Immunology [facility] [address] [place] [address] Dameon Vasquez MD 200 [facility] [place] [address] 09/19/2024 2:30 PM EDT [facility] [address] [facility] [place] [address] 10/15/2024 11:00 AM EDT Office Visit Cardiology, [facility] [address] [facility] [place] [address] Bakari Yu, DO 132 [facility] [place] [address] 01/08/2025 2:00 PM EDT Office Visit [facility] [place] [address] [place] [address] Britta Sullivan PA-C 200 [facility] [place] [address] Health Maintenance Due Date Last Done Comments [...] diastolic heart failure Coronary artery disease involving [place] coronary artery of [place] heart without angina pectoris Hypertensive heart disease [...] diastolic heart failure Coronary artery disease involving [place] coronary artery of [place] heart without angina pectoris Hypertensive heart disease [...] Advanced care planning/counseling discussion Other specified counseling Dyslipidemia, goal LDL below 100 Other and unspecified hyperlipidemia HTN, goal below 140/90 Unspecified essential hypertension documented in this encounter Advance Directives Documents on File Type Date Recorded 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 Yes, in chart and reviewed as current [...] Agents on File Name Relationship Healthcare Agent [facility] Communication Florencia Lindquist Adult Child Health Care Agen t (per Health Care Power of Take Away Worker document) [email or web address] Direct Care Teams Fur Ironer Relationship Specialty Start Date End Date German Tinajero DO [address] [place] [address] PCP - General Internal Medicine 12/27/23 documented as of this encounter
--- OUTSIDE RECORDS SUMMARY | 2024-08-10 07:24 | External Medical Summary | Summary of Care ---
Author Name Unknown Organization [facility] Address [address] [place] [address] Phone [phone] Care Team Providers Care Sports Broadcasting Internship Name Role Phone Zafar Tinajero DO Primary Care Provider [phone] Reason for Visit * Reason Comments Follow Up * Precert (Within 10 days (routine)) - Authorized Specialty Diagnoses / Procedures Referred By Abigail jung Referred To Contact Ophthalmology Diagnoses Exudative age-related macular degeneration, left eye, with inactive choroidal neovascularization (HCC) Procedures FL INJECTION, FARICIMAB-SVOA, 0.1 MG FL INTRAVITREAL NJX PHARMACOLOGIC AGT SPX Rohith Yap DO 132 [facility] [place] [address] Phone: tel: fax: Ophthalmology, [facility] 132 [facility] [place] [address] Phone: tel: fax: Referral ID Status Reason Start Date Expiration Date V isits Requested Visits Authorized [id number] Authorized Precert 05/20/2023 05/08/[id number] Encounter Details Date Type Department Care Team (Late st Contact Info) Description 04/25/2024 1:45 PM EST Office Visit Ophthalmology, [facility] [address] [place] [address] Rohith Yap, DO 132 [place] [address] Exudative 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 [...] by mouth twice daily Active Glucose Blood (RFID Global SolutionTOUCH VERIO) STRP Test blood sugar twice times [...] in the Comments) Remote Patient Monitoring Vendor[place] [facility] [place]s): Connected Scale Self - Management Plan [...] Continue injections 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 Resolute Integrity Clinical Trial [id number] 05/18/2012 04/01/2014 Overview: Renamed per the Centers for Medicare and Medicaid billing requirements to include Clinical Trial.gov number. Genomics Cardio Research Other*[id number] 04/17/2012 06/15/2016 Overview (04/17/2012): Study Title: Genomic Markers for Patients with Cardiovascular Disease Project # [id number] Admitting Supervisor: Jennifer Xiong MD [phone] HTN, GOAL BELOW 140/80 12/27/201108/13 Overview: Per [...] (Prevnar) 02/14/2015 Pneumococcal Conjugate Vacci ne, 20-valent ([id number]) 01/26/2024 Pneumococcal Polysaccharide PPV23 (Pneumovax) 06/16/2012 RSV [...] Yap, DO - 04/25/2024 1:45 PM EST [facility] [place] Nursing Notes: Amina Green RN 04/25/24 1355 [...] (10-20-17, 09-14-17) - s/p Eylea (05-23-19, 04-11-19, 02-21-19, 19, 19, 19, 09-06-18, 19, 19, 04-28-18, 02/08/18, 01/04/18...08-04-18, 06-28-18, 18, 17, 03/03/17, 01-27-17, 17, 17, 10-06-16, 09/01/16) -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 no matter which anti-VEGF used, persistent ongoing srfluid - Lucentis (08-08-19) - Eylea (01/20/23, 11/04/22-Fresh heme 11/04/2022 , 07/26/22, 05/24/22, 04/07/22, 01/01/22, 11/30/21, 10/12/21, 08/24/21, 07/10/21, 06/05/21, 04/27/21, 03/23/21, 02/06/21, 12-31-20, 11-19-, 10/02/20, 08-21-20, 07-16-20, 06-11-20, 04-30-20, 03-25-20, 20, 01/08/20, 11-28-20, 10-18-19, 09-20-19)--improved - worse at 12 weeks; [...] Rohith Yap DO Vabysmo 6mg lot # [id number] Exp. Date: 07/2025 * Amina rGeen RN - 04/25/2024 1:46 PM EST Star [...] 06/05/2024 2:00 PM EST Office Visit Podiatry [facility] 132 [facility] [place] [address] Jen Bourne DPM 132 [facility] [place] [address] 06/25/2024 3:40 PM EST Office Visit Family Practice [address] [place] [address] 293 [facility], [place] [address] Zafar Tinajero, DO 293 [facility], [place] [address] 07/03/2024 11:45 AM EST Office Visit Urology, [facility] 132 [facility] [place] [address] Josh Savage MD [address] [place] [address] 09/04/2024 3:00 PM EDT Office Visit Allergy/Immunology [facility] [address] [place] [address] Dameon Vasquez MD [address] [place] [address] 09/19/2024 2:30 PM EDT Imaging Radiology [facility] 1st [facility] [address] [facility] [place] [address] 10/15/2024 11:00 AM EDT Office Visit Cardiology, [facility] [address] [facility] [place] [address] Bakari Yu, [address] [place] [address] 01/08/2025 2:00 PM EDT [facility] [place] [address] [place] [address] Britta Sullivan PA-C [address] [place] [address] Health Maintenance Due Date Last Done Comments Adult Wellness Visit 10/23/2001 Depression Screening 06/14/2024 06/14/2023 Diabetic Foot Exam 06/14/2024 06/14/2023, 0 06/22/2022, 06/19/2021, Additional history exists HbA1c 09/20/2024 03/23/2024, 02/0 10/2023, 10/20/2022, Additional history exists Diabetic Eye Exam 03/08/2025 03/08/2024, , 07/26/2022, Additional history exists Albumin/Creatinine Ratio 03/23/20252 024, 06/14/2023, 06/22/2022, Additional history exists O2 [...] diastolic heart failure Coronary artery disease involving ramona 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 Yes, in chart and reviewed as current [...] Agen t (per Health Care Power of Matrix Supervisor document) [email or web address] Care Teams Sports Broadcasting Internship Relationship Specialty Start Date End Date Zafar Tinajero DO [address] [place] [address] PCP - General Internal Medicine 12/27/23 documented as of this encounter
--- OUTSIDE RECORDS SUMMARY | 2024-08-10 07:24 | External Medical Summary ---
Author Name Unknown Address Unknown Organization K01:[facility] [place] [address] [place] [address] Laboratory Report Ordering Provider Test Date Status JORDAN PORTER 03/23/2024 16:21:49 Final Normal: <30 mg/g creatinine< br/>High: 30-300 mg/g creatinine
Very High: >300 mg/g creatinine
Nephrotic: >2200 mg/g creatinine Observation Date Value Abnormality Reference (Units ) Status Albumin, Urine 03/23/2024 16:21:49 4.00 (mg/dL) Final Creatinine, Urine 03/23/2024 16:21:49 74 (mg/dL) Final Albumin/Creatinine [Mass Ratio] in Urine 03/23/2024 16:21:49 54 Above high normal <30 (mg/g Creat) Final Performing Location [facility] [place] [address] [address]
--- OUTSIDE RECORDS SUMMARY | 2024-08-10 07:24 | External Medical Summary | Summary of Care ---
Author Name Unknown Organization [facility] Address [address] [place] [address] Phone [phone] Care Team Providers Care Ob/Gyn Doctor Name Role Phone Zafar Tinajero DO Primary Care Provider [phone] Reason for Visit * Reason Comments Follow Up * Precert (Within 10 days (routine)) - Authorized Specialty Diagnoses / Procedures Referred By Abigail jung Referred To Contact Ophthalmology Diagnoses Exudative age-related macular degeneration, left eye, with inactive choroidal neovascularization (HCC) Procedures PA INJECTION, FARICIMAB-SVOA, 0.1 MG PA INTRAVITREAL NJX PHARMACOLOGIC AGT SPX Rohith Yap DO 132 [facility] [place] [address] Phone: tel: fax: Ophthalmology, [facility] 132 [facility] [place] [address] Phone: tel: fax: Referral ID Status Reason Start Date Expiration Date V isits Requested Visits Authorized [id number] Authorized Precert 05/20/2023 05/08/[phone] Encounter Details Date Type Department Care Team (Late st Contact Info) Description 04/25/2024 1:45 PM EST Office Visit Ophthalmology, [facility] [address] [place] [address] Rohith Yap, DO 132 [place] [address] Exudative 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 [...] by mouth twice daily Active Glucose Blood ([place] InstrumentsTOUCH VERIO) STRP Test blood sugar twice times [...] in the Comments) Remote Patient Monitoring Vendor: [facility] [place] Device(s): Connected Scale Self - Management Plan [...] Continue injections 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 Resolute Integrity Clinical Trial [id number] 05/18/2012 04/01/2014 Overview: Renamed per the Centers for Medicare and Medicaid billing requirements to include Clinical Trial.gov number. Genomics Cardio Research Other*[id number] 04/17/2012 06/15/2016 Overview (04/17/2012): Study Title: Genomic Markers for Patients with Cardiovascular Disease Project # [id number] Fish Warden: Jennifer Xiong MD [phone] HTN, GOAL BELOW 140/80 12/27/201108/13 Overview: Per [...] (Prevnar) 02/14/2015 Pneumococcal Conjugate Vacci ne, 20-valent ([id number]) 01/26/2024 Pneumococcal Conjugate Vacci ne, 7 Valent [...] Yap, DO - 04/25/2024 1:45 PM EST [facility] [place] Nursing Notes: Amina [...] Rohith Yap DO Vabysmo 6mg lot # [id number] Exp. Date: 07/2025 * Amina Green RN [...] 06/05/2024 2:00 PM EST Office Visit Podiatry [facility] [address] [address] Jen Bourne DPM [address] [place] [address] 06/25/2024 3:40 PM EST Office Visit Family Practice [address] [place] [address] 293 [facility], [place] [address] Zafar Tinajero, DO 293 [place] [address] 07/03/2024 11:45 AM EST Office Visit Urology, [facility] 132 [facility] [place] [address] Josh Savage MD [address] [place] [address] 09/04/2024 3:00 PM EDT Office Visit Allergy/Immunology [facility] [address] [place] [address] Dameon Vasquez MD [address] [place] [address] 09/19/2024 2:30 PM EDT Imaging Radiology [facility] 1st [facility] 132 [facility] [place] [address] 10/15/2024 11:00 AM EDT Office Visit Cardiology, [facility] 132 [facility] [place] [address] Bakari Yu O, DO 132 [facility] [place] [address] 01/08/2025 2:00 PM EDT Office Visit Allergy/Immunology [facility] [address] [place] [address] Britta Sullivan PA-C [address] [place] [address] Health Maintenance Due Date Last Done Comments [...] diastolic heart failure Coronary artery disease involving tribe coronary artery of tribe heart without angina pectoris Hypertensive heart disease [...] diastolic heart failure Coronary artery disease involving tribe coronary artery of tribe heart without angina pectoris Hypertensive heart disease [...] Documents on File Type Date Recorded Patient Brass Molder Expl anation POLST 12/09/2022 10:36 AM POLST [...] the patient have Health Care Power of Do All Operator? Yes, in chart and reviewed as [...] Agen t (per Health Care Power of Do All Operator document) [email or web address] Care Teams Ob/Gyn Doctor Relationship Specialty Start Date End Date Zafar Tinajero DO [address] [place] [address] PCP - General Internal Medicine 12/27/23 documented as of this encounter
--- OUTSIDE RECORDS SUMMARY | 2024-08-10 07:24 | External Medical Summary | Summary of Care ---
Author Name Unknown Organization [facility] Address [address] [place] [address] Phone [phone] Care Team Providers Care Train System Operator Name Role Phone Zafar Tinajero DO Primary Care Provider [phone] Reason for Visit * Reason Comments Follow Up * Precert (Within 10 days (routine)) - Authorized Specialty Diagnoses / Procedures Referred By Abigail jung Referred To Contact Ophthalmology Diagnoses Exudative age-related macular degeneration, left eye, with inactive choroidal neovascularization (HCC) Procedures AR INJECTION, FARICIMAB-SVOA, 0.1 MG AR INTRAVITREAL NJX PHARMACOLOGIC AGT SPX Rohith Yap DO 132 [facility] [place] [address] Phone: tel: fax: Ophthalmology, [facility] 132 [facility] [place] [address] Phone: tel: fax: Referral ID Status Reason Start Date Expiration Date V isits Requested Visits Authorized [id number] Authorized Precert 05/20/2023 05/08/[phone] Encounter Details Date Type Department Care Team (Late st Contact Info) Description 04/25/2024 1:45 PM EST Office Visit Ophthalmology, [facility] [address] [place] [address] Rohith Yap, DO [address] [place] [address] Exudative 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 [...] by mouth twice daily Active Glucose Blood ([employer] ([employer])TOUCH VERIO) STRP Test blood sugar twice times [...] in the Comments) Remote Patient Monitoring Vendor: [facility] [place] Device(s): Connected Scale Self - [...] Continue injections Coronary artery disease invo lving walker river coronary artery of walker river heart without angina pectoris 05/10/2018 Assessment & [...] chronic 08/24/2012 03/2 Resolute Integrity Clinical Trial [id number] 05/18/2012 05/16/2013 Overview: Renamed per the Centers for Medicare and Medicaid billing requirements to include Clinical Trial.gov number. Resolute Integrity Clinical Trial [id number] 05/18/2012 04/01/2014 Overview: Renamed per the Centers for Medicare and Medicaid billing requirements to include Clinical Trial.gov number. Genomics Cardio Research Other*[id number] 04/17/2012 06/15/2016 Overview (04/17/2012): Study Title: Genomic Markers for Patients with Cardiovascular Disease Project # [id number] Press Tool Maker: Jennifer Xiong MD [phone] HTN, GOAL BELOW 140/80 12/27/201108/13 Overview: Per [...] (Prevnar) 02/14/2015 Pneumococcal Conjugate Vacci ne, 20-valent ([id number]) 01/26/2024 Pneumococcal Polysaccharide PPV23 (Pneumovax) 06/16/2012 RSV [...] Yap, DO - 04/25/2024 1:45 PM [facility] [place] Nursing Notes: [...] Rohith Yap DO Vabysmo 6mg lot # [id number] Exp. Date: 07/2025 * Amina Green RN [...] 06/05/2024 2:00 PM EST Office Visit Podiatry [facility] 132 [facility] [place] [address] Jen Bourne DPM 132 [facility] [place] [address] 06/25/2024 3:40 PM EST Office Visit Family Practice [address] [place] [address] 293 [facility], [place] [address] Zafar Tinajero, DO 293 [facility], [place] [address] 07/03/2024 11:45 AM EST Office Visit Urology, [facility] 132 [facility] [place] [address] Josh Savage MD [address] [place] [address] 09/04/2024 3:00 PM EDT Office Visit Allergy/Immunology [facility] [address] [place] [address] Dameon Vasquez MD [address] [place] [address] 09/19/2024 2:30 PM EDT Imaging Radiology [facility] [address] [facility] [address] [facility] [place] [address] 10/15/2024 11:00 AM EDT Office Visit Cardiology, [facility] [address] [facility] [place] [address] Bakari Yu, [address] [place] [address] 01/08/2025 2:00 PM EDT Office [facility] [place] [address] [place] [address] Britta Sullivan PA-C [address] [place] [address] Health Maintenance Due Date Last Done Comments [...] diastolic heart failure Coronary artery disease involving walker river coronary artery of walker river heart without angina pectoris Hypertensive heart disease [...] diastolic heart failure Coronary artery disease involving walker river coronary artery of walker river heart without angina pectoris Hypertensive heart disease [...] Documents on File Type Date Recorded Patient Housing Director Cameron marshall POL 12/09/2022 10:36 AM POLST [...] the patient have Health Care Power of Gas Maker Helper? Yes, in chart and reviewed as current [...] Agen t (per Health Care Power of Gas Maker Helper document) [email or web address] Care Teams Train System Operator Relationship Specialty Start Date End Date Zafar Tinajero DO [address] [place] [address] PCP - General Internal Medicine 12/27/23 documented as of this encounter
--- OUTSIDE RECORDS SUMMARY | 2024-08-10 07:25 | External Medical Summary | Summary of Care ---
Author Name Unknown Organization [facility] Address [address] [place] [address] Phone [phone] Care Team Providers Care Finished Cigar Maker Name Role Phone Zafar Tinajero DO Primary Care Provider [phone] Reason for Visit * Reason Comments Follow Up * Precert (Within 10 days (routine)) - Authorized Specialty Diagnoses / Procedures Referred By Abigail jung Referred To Contact Ophthalmology Diagnoses Exudative age-related macular degeneration, left eye, with inactive choroidal neovascularization (HCC) Procedures UT INJECTION, FARICIMAB-SVOA, 0.1 MG UT INTRAVITREAL NJX PHARMACOLOGIC AGT SPX Rohith Yap DO [address] [place] [place] [address] [facility]hthal[facility] [place] [facility] [address] Referral ID Status Reason Start Date Expiration Date V isits Requested Visits Authorized [id number] Authorized Precert 05/20/2023 05/08/[phone] Encounter Details Date Type Department Care Team (Late st Contact Info) Description 03/08/2024 11:00 AM EDT Office Visit Ophthalmology, [facility] 132 [facility] [place] [address] Rohith Yap DO [address] [place] [address] Exudative 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 with active choroidal neovascularization (HCC)*; Encounter for diabetes type 2 eye exam (HCC) Allergies Active Allergy Reactions Criticality Noted Date Comments Codeine Sulfate High 08/05/2010 Throat swelling Oxycodone-Acetaminophen 08/22/2023 documented as of this encounter (statuses as of 03/08/2024) Medications Medication Sig Dispensed Refills Start Date End Date Status ASPIRIN 81 MG PO CHEWIndications:INT ERFACED RESULT take one tablet daily 30 Tab 11 04/18/2012 Active PRESERVISION AREDS 2 PO CAPS Take 1 capsule by mouth twice daily Active Glucose Blood (ONETOUCH VERIO) STRP Test blood sugar twice times daily or as directed E11.9 200 Strip 3 11/05/2019 Active Dutasteride 0.5 MG Oral Capsule (Avodart) Take 1 Capsule by mouth in the morning. 90 Capsule 3 12/08/2022 Active Fluticasone-Salmete rol 250-50 MCG/ACT Inhalation Aerosol Powder Breath Activated (Advair Diskus) Inhale 1 Puff by mouth in the morning and 1 Puff before bedtime. 180 Each 2 08/25/2023 Active Lisinopril 10 MG Oral Tablet (Prinivil)Indicatio ns:HTN, goal below 140/90 Take 1 Tablet by mouth in the morning. 90 Tablet 1 11/08/2023 Active amLODIPine Besylate 5 MG Oral Tablet (Norvasc) Take 1 Tablet by mouth in the morning. 90 Tablet 1 11/08/2023 Active Atorvastatin Calcium 40 MG Oral Tablet (Lipitor)Indication s:Dyslipidemia, goal LDL below 100 Take 1 Tablet by mouth daily. 90 Tablet 1 11/08/2023 Active Latanoprost 0.005 % Ophthalmic Solution (Xalatan)Indication s:Other glaucoma of both eyes Instill 1 drop into both eyes once daily 2.5 mL 12 12/02/2023 Active Fluticasone Propionate 50 MCG/ACT Nasal Suspension (Flonase)Indication s:Nasal polyp Administer 2 Sprays into each nostril in the morning. 48 g 3 03/06/2024 Active Hospital, Clinic, or Other Facility Administered [...] as of this encounter (statuses as of 03/08/2024) Active Problems Problem Noted Date Diagnosed Date Adenocarcinoma, lung, left 10/18/2023 Cancer Staging:Clinical: Unsigned Generalized weakness 08/31/2022 Last Assessment & Plan: Weakness, abnormal gait for several months--> he is unsure if it is med related. No falls. Seems reluctant for home PT as he does his own exercises. 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 Primary open-angle glaucoma, bilateral, indeterm inate stage 06/19/2021 Nonallergic rhinitis 01/13/2021 COPD, group B, by GOLD 2017 classification 12/16 Overview: Per COPD GOLD Classification Last Assessment & Plan: "RED FLAG" COPD symptoms: Increased dyspnea on [...] Chest Xray Additional Comments: Breathing stable overall Bilateral exudative age-related macular degenera tion 05/18/2018 Last Assessment & Plan: Routine f/u with ophth Continue injections Coronary artery disease invo lving sun'aq coronary artery of sun'aq heart without angina pectoris 05/10/2018 Last Assessment & Plan: No angina -continue ASA, atorvastatin, lisinopril, norvasc Nodule of left lung 04/29/2016 HTN, goal below 140/90 07/14/2015 Overview: Per HTN Protocol #27. History of tobacco use 08/24/2012 Nasal polyps 08/24/2012 Last Assessment & Plan: On Dupixent -message sent to prescribing team for follow-up. Patient is due this week for his next injection. Sensorineural hearing loss, bilateral 08/24/2012 Presence of drug coated stent in LAD coronary ar laura 04/19/2012 Dyslipidemia, goal LDL below 100 04/17/2009 Overview: Per Lipid Taxonomy. Controlled type 2 diabetes ish recinos without complication, without long-term current use of insulin 03/06/2009 Overview: Per Diabetes Taxonomy. ICD-10 update of inactive term Last Assessment & Plan: "RED FLAG" Diabetic symptoms: Increased Urine Output and Confusion Goal HgbA1c <8 Diabetic Complications Opthalmologic Medication Regimen Lifestyle Modification / Monitoring ONLY DM Secondary Prevention ROSA Inhibitor / ARB Yearly Diabetic Eye Exam Additional Comments Recent A1c at goal Elevated prostate specific antigen (PSA) 999 Last Assessment & Plan: Follows with urology Continues on dutasteride although decreased frequency due to side effects documented as of this encounter (statuses as of 03/08/2024) Resolved Problems Problem Noted Date Diagnosed Date Resolved Date Prediabetes 10/18/2023 12/27/2023 Cellulitis of left lower extremity 08/31/2022 10/20/2022 Last Assessment & Plan: Healing well Hypertensive heart disease w ith chronic diastolic congestive heart failure 06/22/202207/14 Exudative age-related macula r degeneration of left eye with inactive choroidal neovascularization 06/22/2022 02/21/2023 Last Assessment & Plan: Following with Dr. 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 11/22/2019 COPD, moderate 04/29/2016 12/20/2019 Overview: Per COPD GOLD Classification Smell and taste disorder 02/07/2013 Chronic rhinitis 09/21/2012 09/30/2021 Sleep-disordered breathing 08/24/2012 0 12/07/2016 Snoring 08/24/2012 05/10/2018 Overview: ICD-10 update of inactive term Esophageal reflux 08/24/2012 07/10/2018 Excessive cerumen in ear canal 08/24/2012 12/07/2016 Otitis externa, chronic 08/24/2012 03/2 Res[employer] Integrity Clinical Trial [id number] 05/18/2012 05/16/2013 Overview: Renamed per the Centers for Medicare and Medicaid billing requirements to include Clinical Trial.gov number. [employer] Integrity Clinical Trial [id number] 05/18/2012 04/01/2014 Overview: Renamed per the Centers for Medicare and Medicaid billing requirements to include Clinical Trial.gov number. [employer] Other*[id number] 04/17/2012 06/15/2016 Overview: Study Title: Genomic Markers for Patients with Cardiovascular Disease Project # [id number] Criminal Investigator: Jennifer Xiong MD [phone] HTN, GOAL BELOW 140/80 12/27/201108/13 Overview: Per HTN Protocol #27. HTN, GOAL BELOW 130/80 06/04/200912/29 Overview: Per HTN Taxonomy. HTN, goal below 140/90 10/22/200806/04 Overview: Per HTN Taxonomy. Dyslipidemia, goal LDL below 160 10/12/2006 04/17/2009 Overview: Per Lipid Taxonomy. ADVANCE DIRECTIVE INFORMATION 01/12/2005 12/07/2016 Overview: No, Advance Directive brochure given to patient at prior appointment. LIPOMA SKIN NEC 05/13/2003 12/07/2016 Nasal polyp 11/22/2001 12/07/2016 Other specified glaucoma 08/09/199909/2019 TUBULAR ADENOMA POLYP OF COLON 04/09/1998 05/10/2018 Type 2 diabetes mellitus wit h hemoglobin A1c goal of less than 7.0% 03/06/2009 Overview: Per Diabetes Taxonomy. ICD-10 update of inactive term documented as of this encounter (statuses as of 03/08/2024) Immunizations Name Administration Dates Next Due COVID-19 mRNA, LNP-s, No Pre serve, 2-Dose Series (Moderna) 07/18/2020,06/06/2020 COVID-19, MRNA-LNP, 24-25, P R, 30MCG/0.3ML, IM, 12YRS AND ABOVE (SafeLogicsourceasy) 01/26/2024 COVID-19, MRNA-LNP, PF, 30 M CG/0.3 mL, 12 YRS AND ABOVE, IM (MyLife) 03/23/2023 COVID-19, mRNA, LNP-s, PF, B ooster, 100mcg/0.5mg (Moderna) 09/01/2021,03/02/2021 Covid-19, Mrna, Lnp-s, Pf, B ivalent, 30 Mcg, IM, 12 yrs and above (InSphero) 02/24/2022 Diptheria/Tetanus (Adult) 03/05/1997 Pneumococcal Conjugate Vacc, 13 Valent (Prevnar) 02/14/2015 Pneumococcal Conjugate Vacci ne, 20-valent (Pijabpi85) 01/26/2024 Pneumococcal Conjugate Vacci ne, 7 Valent [...] Assigned at Male 11/15/2018 2:24 PM EDT Gender Identity Male 11/15/2018 2:24 PM EDT Sexual Orientation Straight 11/15/2018 2: 24 PM EDT Job Start Date Occupation Industry Not on file Not on file Not on file documented as of this encounter Functional Status Functional Status Response Date of Assess ment Are you deaf or do you have serious difficulty hearing? Uses bilateral hearing Aid 11/01/2016 Are you blind or do you have serious difficulty seeing, even when wearing glasses? No 11/01/2016 Do you have serious difficul ty walking or climbing stairs? (5 years old or older) No 11/01/2016 Do you have difficulty dress ing or bathing? (5 years old or older) No 11/01/2016 Because of a physical, menta l, or emotional condition, do you have difficulty doing errands alone such as visiting a doctor s office or shopping? (15 years old or older) No 11/01/2016 Cognitive Status Response Date of Assessm ent Because of a physical, menta l, or emotional condition, do you have serious difficulty concentrating, remembering, or making decisions? (5 years old or older) No 11/01/2016 documented as of this encounter Progress Notes * Rohith Yap, DO - 03/08/2024 11:00 AM EDT [facility] [place] Nursing Notes: Amina Green RN 03/08/24 1117 Signed Star Sepulveda is a 88 year old year old male who presents for AMD OU. Last Office Visit: 01/18/2024 (in office), Visit date not found (telemedicine) Patient currently states no change in vision. Are you diabetic? Yes. Do you check your blood sugars daily? YES. Did not measure this morning. Last Hemoglobin A1C: Lab Results Component Value Date/Time HGBA1C 6.2 (H) 06/14/2023 03:20 PM HGBA1C 5.6 10/20/2022 02:49 PM HGBA1C 5.9 (H) 06/22/2022 02:01 PM HGBA1C 6.0 (H) 11/21/2020 02:25 PM HGBA1C 6.2 (H) 02/11/2020 03:20 PM HGBA1C 6.2 (H) 10/10/2019 10:22 AM HGBA1C 6.4 (H) 03/20/2019 01:36 PM HGBA1C 5.7 01/16/1996 09:[address]? No OCT image(s) of left eye acquired and filed/scanned into chart. Base Eye Exam Visual Acuity (Snellen - Linear) Right Left Dist sc 20/400 -2 20/250 -1 Dist ph sc NI NI Tonometry (Tonopen, 11:16 AM) Right Left Pressure 19 21 Pupils Pupils Dark Light Shape React APD Right PERRL 1 1 Round None None Left PERRL 1 1 Round None None Visual Galvez (Counting fingers) Right Left Full Full Extraocular Movement Right Left Full, Ortho Full, Ortho Neuro/Psych Oriented x3: Yes Mood/Affect: Normal Dilation Both eyes: 0.5% Proparacaine @ 11:15 AM Dilation #2 Left eye: 1.0% Mydriacyl, 2.5% Phenylephrine @ 11:15 AM Dilation #3 Left eye: 1.0% Mydriacyl, 2.5% Phenylephrine @ 11:17 AM Dilation Comments Patient cautioned that effects [...] nerve: 0.6, no edema/pallor/NVD macula: rpe mottling, heme-fresh vessels: wnl midperiphery: wnl periphery: no RT/RD [...] 09-14-17) - s/p Eylea (05-23-19, 04-11-19, 19, 01-10-19, 11-29-18, 19, 09-06-18, 19, 06-15-18, 18, 02/08/18, 01/04/18...08-04-18, 06-28-18, 18, 04-05-17, 03/03/17, 01-27-17, 17, 17, 10-06-16, 09/01/16) -persistent [...] 15 weeks -Avastin 05/19/23, 04/07/23, 03/03/23 -Vabysmo 01/18/24, 12/02/23, 10/14/23, 08/22/23, 06/24/2023 -7.1 weeks -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 Correct eye confirmed with patient and marked by Rohith Yap DO Vabysmo 6mg lot # [id number] Exp. Date: 01/2025 * Amina Green RN - 03/08/2024 11:09 AM EDT Star Sepulveda is a 88 year old year old male who presents for AMD OU. Last Office Visit: 01/18/2024 (in office), Visit date not found (telemedicine) Patient currently states no change in vision. Are you diabetic? Yes. Do you check your blood sugars daily? YES. Did not measure this morning. Last Hemoglobin A1C: Lab Results Component Value Date/Time HGBA1C 6.2 (H) 06/14/2023 03:20 PM HGBA1C 5.6 10/20/2022 02:49 PM HGBA1C 5.9 (H) 06/22/2022 02:01 PM HGBA1C 6.0 (H) 11/21/2020 02:25 PM HGBA1C 6.2 (H) 02/11/2020 03:20 PM HGBA1C 6.2 (H) 10/10/2019 10:22 AM HGBA1C 6.4 (H) 03/20/2019 01:36 PM HGBA1C 5.7 01/16/1996 09:[address]? No OCT image(s) of left eye acquired and filed/scanned into chart. documented in this encounter Plan of Treatment Upcoming Encounters Date Type Department Care Team (Late st Contact Info) Description 03/13/2024 1:15 PM EST Imaging Radiology [address] 132 [facility] [place] [address] 03/22/2024 11:30 AM EST Office Visit Radiation Oncology, [address] [place] [address] Michele Goodrich MD [address] [place] [address] [place] [address] 03/23/2024 3:40 PM EST Office Visit Family Practice [address] [place] [address] [facility] [phone] Zafar Tinajero, 293 [facility] [place] [address] 03/29/2024 11:40 AM EST Office Visit Otolaryngology [facility] 132 [facility] [place] [address] Mimi Jordan PA-C 132 [facility] [place] [address] 06/05/2024 2:00 PM EST Office Visit Podiatry [facility] [address] Jen Bourne DPM 132 [place] [address] 07/03/2024 11:45 AM EST Office Visit Urology, [facility] 132 [facility] [place] [address] Josh Savage MD 27 [facility] [place] [address] 09/04/2024 3:00 PM EDT Office Visit Allergy/Immunology [facility] [address] [place] [address] Dameon Vasquez MD [address] [place] [address] 10/15/2024 11:00 AM EDT Office Visit Cardiology, [facility] [address] Bakari Yu DO 132 [facility] [place] [address] 01/08/2025 2:00 PM EDT Office Visit Allergy/Immunology [facility] [address] [place] [address] Britta Sullivan PA-C [address] [place] [address] Scheduled Orders Name Type Priority Associated Diagnoses Orde r Schedule RETINA SCAN DIAGNOSTIC IMAGE, POSTERIOR Procedures Routine Exudative 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 with active choroidal neovascularization (HCC) Ordered: 03/08/2024 Health Maintenance Due Date Last Done Comments Adult Wellness Visit 10/23/2001 HbA1c 12/13/2023 06/14/2023, 10/07, 06/22/2022, Additional history exists Albumin/Creatinine Ratio 06/14/2024 024, 06/22/2022, 06/19/2021, Additional history exists Depression Screening 06/14/2024 06/14/2023 Diabetic Foot Exam 06/14/2024 06/14/2023, 0 06/22/2022, 06/19/2021, Additional history exists O2 ASSESSMENT COMPLETED IN PAST YEAR FOR COPD 03/06/2025 03/06/2024 Diabetic Eye Exam 03/08/2025 03/08/2024, , 07/26/2022, Additional history exists DTap/Tdap Vaccines (3 - Td or Tdap) 07/04/2030 07/04/2020, 10/04/2014, 12/24/2009, Additional history exists Alpha-1 Antitrypsin Completed 06/19/2021 Zoster Vaccines Completed 09/23/2021, 06/09, 05/21/2015 Influenza Vaccine (FLU shot) Completed 01/13/2024, 01/13/2024, 01/22/2023, Additional history exists COVID-19 Vaccine Discontinued 01/26/2024, , 03/23/2023, Additional history exists Pneumococcal Vaccine: 65+ Years [...] as of this encounter Visit Diagnoses Diagnosis Exudative 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 with active choroidal neovascularization (HCC)- Primary Encounter for diabetes type 2 eye exam (HCC) Type II or unspecified type diabetes mellitus without mention of complication, not stated as uncontrolled documented in this encounter Administered Medications Active Administered Medications - up to 3 most recent administrations Medication Order MAR Action Action Date Dose Rate Site Faricimab-svoa (Vabysmo) intravitreal inj 6 mg 6 mg, Intravitreal, PRN Other, Starting on Tue06/24/23 at 1246, Until 06/23/24 at 1245, For 365 days, Each single dose vial and transfer filter needle should only be used for the treatment of a single eye. 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 Yes, in chart and reviewed as current [...] Grey jung (per Health Care Power of Front Office Assistant document) [email or web address] Care Teams Finished Cigar Maker Relationship Specialty Start Date End Date Zafar Tinajero DO [address] [place] [address] PCP - General Internal Medicine 12/27/23 documented as of this encounter
--- OUTSIDE RECORDS SUMMARY | 2024-08-10 07:25 | External Medical Summary | Summary of Care ---
Author Name Unknown Organization [facility] Address [address] [place] [address] Phone [phone] Care Team Providers Care Accredited Farm Manager Name Role Phone Zafar Tinajero DO Primary Care Provider [phone] Reason for Referral * Precert (Within 10 days (routine)) - Authorized Specialty Diagnoses / Procedures Referred By Contac t Referred To Contact Radiology Diagnoses Adenocarcinoma, lung, left (HCC) Procedures CT CHEST WO CONTRAST Michele Goodrich MD [address] [place] [address] [place] [address] Phone: tel: fax: Referral ID Status Reason Start Date Expiration Date V isits Requested Visits Authorized [id number] Authorized 09/19/[phone] Reason for Visit * Reason Comments Follow Up Encounter Details Date Type Department Care Team (Late st Contact Info) Description 03/22/2024 11:30 AM EST Office Visit Radiation Oncology, [facility] [address], [place] [id number] Michele Goodrich MD [address] [place] [address] [place] [phone] Adenocarcinoma, lung, left (HCC)* Allergies Active Allergy Reactions Criticality Noted Date Comments Codeine Sulfate High 08/05/2010 Throat swelling Oxycodone-Acetaminophen 08/22/2023 documented as of this encounter (statuses as of 03/22/2024) Medications ASPIRIN 81 MG PO CHEWIndications :INTERFACED [...] as of this encounter (statuses as of 03/22/2024) Active Problems Problem Noted Date Diagnosed Date [...] Continue injections Coronary artery disease invo lving qawalangin coronary artery of qawalangin heart without angina pectoris 05/10/2018 Assessment & [...] as of this encounter (statuses as of 03/22/2024) Resolved Problems Problem Noted Date Diagnosed Date [...] externa, chronic 08/24/201207/08 Resolute Integrity Clinical Trial [id number] 05/18/2012 05/16/2013 Overview: Renamed per the Centers for Medicare and Medicaid billing requirements to include Clinical Trial.gov number. Resolute Integrity Clinical Trial [id number] 05/18/2012 04/01/2014 Overview: Renamed per the Centers for Medicare and Medicaid billing requirements to include Clinical Trial.gov number. Genomics [employer] Research Other*[id number] 04/17/2012 06/15/2016 Overview (04/17/2012): Study Title: Genomic Markers for Patients with Cardiovascular Disease Project # [id number] Replanting Machine Crew: Jennifer Xiong MD [phone] HTN, GOAL BELOW 140/80 12/27/201108/13 Overview: Per [...] as of this encounter (statuses as of 03/22/2024) Immunizations Name Administration Dates Next Due COVID-19 [...] (Prevnar) 02/14/2015 Pneumococcal Conjugate Vacci ne, 20-valent ([id number]) 01/26/2024 Pneumococcal Polysaccharide PPV23 (Pneumovax) 06/16/2012 RSV [...] Sign Reading Time Taken Comments Blood Pressure 154/62 03/22/2024 11:23 AM EST Pulse 73 03/22/2024 11:23 AM EST Temperature - - Respiratory Rate - - Oxygen Saturation 98% 03/22/2024 11:23 AM EST Inhaled Oxygen Concentration - - Weight 75.1 kg (165 lb 8 oz) 03/22/2024 11:23 AM EST Height - - Body Mass Index 29.09 03/06/2024 3:28 PM EDT documented in this encounter Functional Status * [...] documented in this encounter Progress Notes * Michele Goodrich MD - 03/22/2024 11:30 AM EST RADIATION ONCOLOGY FOLLOW-UP NOTE [facility] Name: Star Sepulveda : 1935 Star Sepulveda was seen in follow-up in Radiation Oncology at [facility] on 03/22/2024. REFERRING PHYSICIAN: Trey Jiménez MD DISEASE STATUS: No Evidence of Disease (DOT) SITE OF MALIGNANCY: Left lower lobe lung Left upper lobe lung HISTOPATHOLOGY: NSCLC, Adenocarcinoma, lepidic and and focal papillary growth patterns STAGE: Synchronous Stage I NSCLC vs. Multifocal LPA, with 2 dominant lesions PRIOR THERAPY: 12/05/23-12/14/23 Completed definitive LLL and RASHMI Lung SBRT, 5000cGy in 5 fractions, every other day,single isocenter INTERVAL HISTORY: Returns for a regularly scheduled follow up. Doing ok in terms of SOB/PAYAN No hunter n v vision changes Level of activity about the same Current Outpatient Medications Medication Sig Dispense Refill ASPIRIN 81 MG PO CHEW take one tablet daily 30 Tab 11 PRESERVISION AREDS 2 PO CAPS Take 1 capsule by mouth twice daily Glucose Blood (ONETOUCH VERIO) STRP Test blood [...] Tablet by mouth daily. 90 Tablet 1 Latanoprost 0.005 % Ophthalmic Solution (Xalatan) Instill 1 drop into both eyes once daily 2.5 mL 12 Fluticasone Propionate 50 MCG/ACT Nasal Suspension (Flonase) Administer 2 Sprays into each nostril in the morning. 48 g 3 Current Facility-Administered Medications Medication Dose Route Frequency Provider Last Rate Last Admin Faricimab-svoa (Vabysmo) intravitreal inj 6 mg 6 mg Intravitreal PRN Rohith Yap, DO 6 mgat 03/08/24 1142 ROPivacaine (Naropin) inj 1.5 mg 1.5 mg Injection PRN Rohith Yap, DO 1.5 mg at 03/08/24 1141 Past Medical History: Diagnosis Date Adenocarcinoma, lung, left (HCC) 10/18/2023 Asthma Asthma with severity to be determined 05/22/2019 Benign localized hyperplasia of prostate without urinary obstruction and other lower urinary tract symptoms (LUTS) Benign neoplasm of colon 12/14/2006 adenomatous tissue-repeat colonoscopy in 5 years Chronic rhinitis 09/21/2012 COPD, moderate (HCC) 04/29/2016 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 DM type 2, not at goal (HCC) Dyslipidemia, goal LDL below 100 04/17/2009 Per Lipid Taxonomy. ELEVATED PROSTATE SPECIFIC ANTIGEN 03/06/1999 Esophageal reflux 08/24/2012 Excessive cerumen in ear canal 08/24/2012 [employer] Other*[id number] 04/17/2012 Study Title: Genomic Markers for Patients with Cardiovascular Disease Project # [id number] PrincipalInvestigator: Jennifer Xiong MD [phone] GLAUCOMA NEC 08/09/1999 HTN, goal below 140/80 12/27/2011 Per HTN Protocol #27. Hx of corneal abrasion LIPOMA SKIN NEC 05/13/2003 Lung nodule Macular degeneration 04/10/2014 OD wet Eylea injections started, Dr. Yap NASAL POLYP NOS 11/22/2001 Nasal polyps 08/24/2012 Otitis externa, chronic 08/24/2012 Prediabetes 10/18/2023 Presence of drug coated stent in LAD coronary artery 04/19/2012 Resolute Integrity Clinical Trial [id number] 05/18/2012 Renamed per the Centers for Medicare and Medicaid billing requirements to include Clinical Trial.gov number. Seasonal allergies Sensorineural hearing loss, bilateral 08/24/2012 Sleep-disordered breathing 08/24/2012 Smell and taste disorder 02/07/2013 Snoring disorder 08/24/2012 Type 2 diabetes mellitus with hemoglobin A1c goal of less than 7.0% ([facility]) 03/06/2009 Per Diabetes Taxonomy. 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: [employer] Tobacco Use Smoking status: Former Current packs/day: 0.00 Average packs/day: 0.5 packs/day for 5.0 years (2.5 ttl pk-yrs) Types: Cigarettes Start date: 05/09/1974 Quit date: 05/09/1979 Years since quittin.9 Passive exposure: Past Smokeless tobacco: Never Tobacco comments: No passive smoke exposures Vaping Use Vaping status: Never Used Substance and Sexual Activity Alcohol use: Not Currently Comment: rare glass of wine or beer/socially Drug use: No Sexual activity: Never Social History Narrative Home construction: 20y Heating system: heat pump Dampness: no Pet: yes: dog Feathers: yes: Mattress covered: no Carpet in bedroom: yes: Air conditioning: yes: central Indoor smoke: no Occupational/daycare triggers: no Social Needs Financial Resource Strain: Low Risk (08/23/2023) Financial Resource Strain Do you have any trouble paying for your medications, or do you think you might in the future? (Adult - for ages 18 years and over): No Food Insecurity: No Food Insecurity (08/23/2023) Food Insecurity Do you need food for this week? (Adult - for ages 18 years and over): No Transportation Needs: No Transportation Needs (08/23/2023) Transportation Needs Do you have trouble getting a ride to medical visits or work? (Adult - for ages 18 years and over):Never True Social Connections: Socially Integrated (08/23/2023) Social Connections How often do you feel lonely or isolated from those around you? (Adult - for ages 18 years and over): Never Housing Stability: Low Risk (08/23/2023) Housing Stability Do you currently live in a [place] or have no steady place to sleep at night? (Adult - for ages 18 years and over): No Do you think you are at risk of becoming homeless? (Adult - for ages 18 years and over): No Family History Problem Relation Name Age of Onset Heart Disorder Mother age 86-heart dx; had had longstanding arthritis Allergies Mother History of nasal polyps Heart Disorder Sister heart surgery-valve replacement -age 70 Cancer Brother half-brother- uncertain type cancer-possibly brain tumor- in his 60's Cancer Brother areli Diabetes Father onset age 75- age 93 No Known Problems Sister No Known Problems Sister ROS- Except for what is mentioned in HPI, all others negative. ZUBROD PERFORMANCE SCALE: 1 restricted in physically strenuous activity but ambulatory and able to carry out work of a light or sedentary nature (light housework or office work) PHYSICAL EXAMINATION: BP 154/62 | Pulse 73 | Wt 75.1 kg (165 lb 8 oz) | SpO2 98% | BMI 29.09 kg/m² | BSA 1.83 m² Wt Readings from Last 4 Encounters: 03/22/24 75.1 kg (165 lb 8 oz) 03/06/24 75.2 kg (165 lb 11.2 oz) 03/05/24 74.8 kg (164 lb 12.8 oz) 01/05/24 77.2 kg (170 lb 3.2 oz) Very pleasant and communicative General: alert and oriented, no apparent distress, cognition normal Speech intact, no hoarseness Skin: no visible skin lesions Eyes: conjunctiva non-icteric bilaterally Head and face: facial symmetric Lymphatics: no visible cervical adenopathy and no supraclavicular adenopathy In no distress, no wheezing, stridor Upper extremities: non-edematous bilaterally Neurologic: MMSE 30/30 +vision imparied CN 3-12 intact Strength 5/5 bilaterally No pronator drift No gross sensory deficits 2+ reflexes throughout, (-) Babinski Finger to nose intact Romberg negative Gait intact RECENT LABS: Results for orders placed or performed in visit on 10/13/23 CBC Result Value Ref Range WBC 4.87 4.00 - 10.80 K/uL RBC 4.78 4.50 - 5.25 M/uL HGB 14.1 14.0 - 16.8 g/dL HCT 42.7 40.0 - 48.4 % MCV 89.3 82.0 - 99.5 fL MCH 29.5 27.0 - 34.0 pg MCHC 33.0 32.0 - 36.0 g/dL RDW 12.9 11.5 - 15.5 % PLT 197 140 - 400 K/uL MPV 9.1 6.6 - 11.1 fL nRBCs 0 <=0 /100 WBCs Creatinine Results: Lab Results Component Value Date/Time CREATININE - [facility] 0.8 06/14/2023 03:20 PM CREATININE - [facility] 0.7 09/03/2022 04:10 PM CREATININE - [facility] 0.68 04/03/2022 12:00 AM CREATININE - [facility] 0.7 01/30/2022 12:45 PM CREATININE - [facility] 0.8 10/10/2019 10:22 AM CREATININE - [facility] 0.8 07/10/2018 01:50 PM CREATININE - [facility] 0.8 05/16/2018 11:15 AM CREATININE, RANDOM URINE - [facility] 151 06/14/2023 03:24 PM CREATININE, RANDOM URINE - [facility] 94 06/22/2022 02:01 PM CREATININE, RANDOM URINE - [facility] 106 06/19/2021 04:07 PM CREATININE, RANDOM URINE - [facility] 117 10/10/2019 10:22 AM CREATININE, RANDOM URINE - [facility] 102 11/15/2018 03:23 PM CREATININE, RANDOM URINE - [facility] 144 12/01/2017 08:16 AM TSH Results: Lab Results Component Value Date/Time TSH - [facility] 2.08 10/10/2019 10:22 AM TSH - [facility] 2.73 11/17/2016 09:10 AM TSH - [facility] 0.99 10/31/2016 04:25 PM RECENT RADIOGRAPHIC IMAGING: CT CHEST WO CONTRAST Narrative: EXAM EXAM: CT CHEST WO CONTRAST DATE and TIME: 03/13/2024 1:43 pm HISTORY CLINICAL INFORMATION: Lung cancer TECHNIQUE CT of the chest was obtained without intravenous contrast. COMPARISON CT chest 09/06/2023. FINDINGS MEDIASTINUM AND MELO: No enlarged or suspicious lymph node. HEART: There is no pericardial effusion. LARGE AIRWAYS: Diffuse peribronchial thickening. LUNGS: Left lower lobe nodule measuring 1.9 x 1.2 cm (previously 2.5 x 1.8 cm) is decreased in size. The adjacent ground-glass opacity measuring 1.6 x 2.3 cm (previously 1.9 x 2.9 cm) is also decreased in size. Stable left upper lobe subpleural 1.4 x 0.8 cm nodule. Small calcified granulomas and noncalcified pulmonary micro nodules in both lungs appear unchanged. PLEURA: There are no pleural effusions. CHEST WALL/SOFT TISSUES: There is no axillary lymphadenopathy. LINES AND DEVICES: None BONES: Degenerative changes of the spine. VESSELS: Atherosclerotic changes in the aorta and coronary arteries. UPPER ABDOMEN: No acute finding involving the visualized portion of the upper abdomen. Stable tiny left adrenal nodule. Impression: IMPRESSION 1. Decreased size of left lower lobe nodule and adjacent ground-glass opacity consistent with a positive treatment response. 2. Stable left upper lobe subpleural nodule. 3. Stable left adrenal nodule. 4. Chronic findings, as above. ASSESSMENT: Star Sepulveda is a 88 year old male diagnosed with Left lower lobe lung and Left upper lobe lung NSCLC, Adenocarcinoma, lepidic and and focal papillary growth patterns, Synchronous Stage I NSCLC vs. Multifocal LPA, with 2 dominant lesions Patient has completed definitive Lung SBRT to 2 index lesions Imaging with response Space out to 6 months MR had equivocal findings consistent with meningiomas No change or new neuro symptoms, and neuro exam intact, do not recommend continued MR survaillance Health Maintenance and Age Appropriate Screening per PCP CTCAE Version 5.0 Subacute/Late Post RT Toxicity Report: Fatigue: no Weight loss: no Local: none Bleeding: none Infection: none Dermatitis radiation: no Alopecia: none Dry mouth: no Mucositis: no Esophagitis: no Nausea: no Vomiting: no Diarrhea: no Proctitis: no Liver: Bilirubin: WNL Transaminase: WNL Heart: Cardiac Function: none Pulmonary: none/ no change Cystitis non-infective: no Kidney/Bladder: Creatinine: WNL Neurologic Function Status: 1. No neurologic symptoms, fully active at home/work without assistance Neurologic Mood: no change Sexual Dysfunction Status: 1. Not applicable/ not asked Other (specify): N/A PLAN: The patient will follow-up in Radiation Oncology in [address] thorax prior. Follow-up with other physicians is as already scheduled. The patient will contact us in the meantime with questions or concerns. Thank you for having asked us to take part in this patient's care. I spent a total of 30 Minutes on the date of service in preparation, delivery, and documentation ofthe care provided to Star Sepulveda excluding any time spent in the performance of separatelybilled services. Michele Goodrich MD Radiation Oncology documented in this encounter Plan of Treatment Upcoming Encounters Date Type Department Care Team (Late st Contact Info) Description 03/23/2024 3:40 PM EST Office Visit Family Practice [address] [place] [address] [address] [facility], [place] [address] Zafar Tinajero, DO 293 [facility], [place] [address] 03/29/2024 11:40 AM EST Office Visit Otolaryngology [facility] [address] [facility] [place] [address] Mimi Jordan PA-C [address] [place] [address] 04/25/2024 1:45 PM EST Office Visit Ophthalmology, [facility] [address] [facility] [place] [address] Rohith Yap DO 132 [facility] [place] [address] 06/05/2024 2:00 PM EST Office Visit Podiatry [facility] [address] [facility] [place] [address] Jen Bourne DPM 132 [facility] [place] [address] 07/03/2024 11:45 AM EST Office Visit Urology, [facility] [address] [facility] [place] [address] Josh Savage MD [address] [place] [address] 09/04/2024 3:00 PM EDT Office Visit Allergy/Immunology [facility] [address] Dameon Vasquez MD 200 [facility] [place] [address] 10/15/2024 11:00 AM EDT Office Visit Cardiology, [facility] [address] [place] [address] Bakari Yu, [address] [place] [address] 01/08/2025 2:00 PM EDT Office Visit Allergy/Immunology [facility] [place] [address] Britta Sullivan PA-C [address] [facility] [place] [address] Scheduled Orders Name Type Priority Associated Diagnoses Orde r Schedule CT CHEST WO CONTRAST Medical Imaging Routine Adenocarcinoma, lung, left (HCC) Expected: 09/19/2024 (Approximate), Expires: 04/21/2025 Health Maintenance Due Date Last Done Comments [...] diastolic heart failure Coronary artery disease involving qawalangin coronary artery of qawalangin heart without angina pectoris Hypertensive heart disease [...] diastolic heart failure Coronary artery disease involving qawalangin coronary artery of qawalangin heart without angina pectoris Hypertensive heart disease [...] Advanced care planning/counseling discussion Other specified counseling Adenocarcinoma, lung, left (HCC)- Primary documented in this encounter Advance Directives Documents on File Type Date Recorded Patient Nailhead Puncher Expl anation POLST 12/09/2022 10:36 AM POLST [...] the patient have Health Care Power of Telegraph Repeater Installer? Yes, in chart and reviewed as current [...] Agents on File Name Relationship Healthcare [facility] Communication Florencia Lindquist Adult Child Health Care Grey jung (per Health Care Power of Telegraph Repeater Installer document) [email or web address] Care Teams Accredited Farm Manager Relationship Specialty Start Date End Date Zafar Tinajero DO [address] [place] [address] PCP - General Internal Medicine 12/27/23 documented as of this encounter
--- OUTSIDE RECORDS SUMMARY | 2024-08-10 07:25 | External Medical Summary | Summary of Care ---
Author Name Unknown Organization [facility] Address [address] [place] [address] Phone [phone] Care Team Providers Care Petrol Tanker Driver Name Role Phone Zafar Tinajero DO Primary Care Provider [phone] Reason for Visit * Reason Comments Follow Up * Precert (Within 10 days (routine)) - Authorized Specialty Diagnoses / Procedures Referred By Abigail jung Referred To Contact Ophthalmology Diagnoses Exudative age-related macular degeneration, left eye, with inactive choroidal neovascularization (HCC) Procedures CA INJECTION, FARICIMAB-SVOA, 0.1 MG CA INTRAVITREAL NJX PHARMACOLOGIC AGT SPX Rohith Yap DO [address] [facility] [address] [facility]mology [facility] [address] Referral ID Status Reason Start Date Expiration Date V isits Requested Visits Authorized [id number] Authorized Precert 05/20/2023 05/08/2099 999 [id number] Encounter Details Date Type Department Care Team (Late st Contact Info) Description 03/08/2024 11:00 AM EDT Office Visit Ophthalmology, [facility] 132 [facility] [place] [address] Rohith Yap DO [address] [place] [address] Exudative 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 [...] in the Comments) Remote Patient Monitoring Vendor: [facility] Device(s): Connected Scale Self - Management Plan [...] Continue injections Coronary artery disease invo lving [place] coronary artery of [place] heart without angina pectoris 05/10/2018 Last Assessment [...] chronic 08/24/2012 03/2 Resolute Integrity Clinical Trial [id number] 05/18/2012 05/16/2013 Overview: Renamed per the Centers for Medicare and Medicaid billing requirements to include Clinical Trial.gov number. Resolute Integrity Clinical Trial [id number] 05/18/2012 04/01/2014 Overview: Renamed per the Centers for Medicare and Medicaid billing requirements to include Clinical Trial.gov number. [employer] Other*[id number] 04/17/2012 06/15/2016 Overview: Study Title: Genomic Markers for Patients with Cardiovascular Disease Project # [id number] Wet Press Tender: Jennifer Xiong MD [phone] HTN, GOAL BELOW 140/80 12/27/201108/13 Overview: Per [...] P R, 30MCG/0.3ML, IM, 12YRS AND ABOVE (ZongOptMed) 01/26/2024 COVID-19, MRNA-LNP, PF, 30 M CG/0.3 mL, 12 YRS AND ABOVE, IM (VidFall.[email or web address]) 03/23/2023 COVID-19, mRNA, LNP-s, PF, B ooster, 100mcg/0.5mg (Moderna) 09/01/2021,03/02/2021 Covid-19, Mrna, Lnp-s, Pf, B ivalent, 30 Mcg, IM, 12 yrs and above (Backupify) 02/24/2022 Diptheria/Tetanus (Adult) 03/05/1997 Pneumococcal Conjugate Vacc, 13 Valent (Prevnar) 02/14/2015 Pneumococcal Conjugate Vacci ne, 20-valent ([id number]) 01/26/2024 Pneumococcal Conjugate Vacci ne, 7 Valent [...] - 03/08/2024 11:00 AM EDT [facility] [place] Nursing Notes: Amina [...] 01/18/24, 12/02/23, 10/14/23, 08/22/23, 06/24/2023 -7.1 weeks -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 Date: 01/2025 * Amina Green RN [...] Description 03/13/2024 1:15 PM EST Imaging Radiology [address] 132 [facility] [place] [address] 03/22/2024 11:30 AM EST Office Visit Radiation Oncology, [address] [place] [address] Michele Goodrich MD [address] [place] [address] [place] [address] 03/23/2024 3:40 PM EST Office Visit Family Practice [address] [place] [address] [facility] [address] Zafar Tinajero, 293 [facility] [place] [address] 03/29/2024 11:40 AM EST Office Visit Otolaryngology [facility] 132 [facility] [place] [address] Mimi Jordan PA-C 132 [facility] [place] [address] 06/05/2024 2:00 PM EST Office Visit Podiatry [facility] [address] [facility] [place] [address] Jen Bourne DPM 132 [facility] [place] [address] 07/03/2024 11:45 AM EST Office Visit Urology, [facility] 132 [facility] [place] [address] Josh Savage MD 27 [facility] [place] [address] 09/04/2024 3:00 PM EDT Office Visit Allergy/Immunology [facility] [address] [place] [address] Dameon Vasquez MD [address] [place] [address] 10/15/2024 11:00 AM EDT Office Visit Cardiology, [facility] [address] [facility] [address] Bakari Yu DO [address] [facility] [place] [address] 01/08/2025 2:00 PM EDT Office Visit Allergy/Immunology [facility] [address] [place] [address] Britta Sullivan PA-C [address] [place] [address] Scheduled Orders Name Type Priority Associated Diagnoses [...] Documents on File Type Date Recorded Patient Farm Contractor Expl 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 Yes, in chart and reviewed as [...] Grey jung (per Health Care Power of Crackling Press Operator document) [email or web address] Care Teams Petrol Tanker Driver Relationship Specialty Start Date End Date Zafar Tinajero DO [address] [place] [address] PCP - General Internal Medicine 12/27/23 documented as of this encounter
--- OUTSIDE RECORDS SUMMARY | 2024-08-10 07:25 | External Medical Summary | Summary of Care ---
Author Name Unknown Organization [facility] Address [address] [place] [address] Phone [phone] Care Team Providers Care Organic Chemist Name Role Phone Zafar Tinajero DO Primary Care Provider [phone] Reason for Visit * Reason Comments Follow Up * Precert (Within 10 days (routine)) - Authorized Specialty Diagnoses / Procedures Referred By Abigail jung Referred To Contact Ophthalmology Diagnoses Exudative age-related macular degeneration, left eye, with inactive choroidal neovascularization (HCC) Procedures VT INJECTION, FARICIMAB-SVOA, 0.1 MG VT INTRAVITREAL NJX PHARMACOLOGIC AGT SPX Rohith Yap DO [address] [facility] [place] [address] Ophthalmology [facility] [address] Referral ID Status Reason Start Date Expiration Date V isits Requested Visits Authorized [id number] Authorized Precert 05/20/2023 05/08/2099 [id number] Encounter Details Date Type Department Care Team (Late st Contact Info) Description 03/08/2024 11:00 AM EDT Office Visit Ophthalmology, [facility] 132 [facility] [place] [address] Rohith Yap DO [address] [place] [address] Exudative 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 [...] in the Comments) Remote Patient Monitoring Vendor: [facility] Device(s): Connected Scale Self - Management Plan [...] Continue injections Coronary artery disease invo lving [place] coronary artery of [place] heart without angina pectoris 05/10/2018 Last Assessment [...] chronic 08/24/2012 03/2 [employer] Clinical Trial [id number] 05/18/2012 05/16/2013 Overview: Renamed per the Centers for Medicare and Medicaid billing requirements to include Clinical Trial.gov number. [employer] Clinical Trial [id number] 05/18/2012 04/01/2014 Overview: Renamed per the Centers for Medicare and Medicaid billing requirements to include Clinical Trial.gov number. [employer] Other*[id number] 04/17/2012 06/15/2016 Overview: Study Title: Genomic Markers for Patients with Cardiovascular Disease Project # [id number] Channel Marketing Specialist: Jennifer Xiong MD [phone] HTN, GOAL BELOW 140/80 12/27/201108/13 Overview: Per [...] P R, 30MCG/0.3ML, IM, 12YRS AND ABOVE ([employer]) 01/26/2024 COVID-19, MRNA-LNP, PF, 30 M CG/0.3 mL, 12 YRS AND ABOVE, IM ([employer]) 03/23/2023 COVID-19, mRNA, LNP-s, PF, B ooster, 100mcg/0.5mg (Moderna) 09/01/2021,03/02/2021 Covid-19, Mrna, Lnp-s, Pf, B ivalent, 30 Mcg, IM, 12 yrs and above ([employer]) 02/24/2022 Diptheria/Tetanus (Adult) 03/05/1997 Pneumococcal Conjugate Vacc, 13 Valent (Prevnar) 02/14/2015 Pneumococcal Conjugate Vacci ne, 20-valent ([id number]) 01/26/2024 Pneumococcal Conjugate Vacci ne, 7 Valent [...] - 03/08/2024 11:00 AM EDT [facility] [place] Nursing Notes: [...] Rohith Yap DO Vabysmo 6mg lot # [id number] Exp. Date: 01/2025 * Amina Green RN [...] 03/13/2024 1:15 PM EST Imaging Radiology [address] [facility] [place] [address] 03/22/2024 11:30 AM EST Office Visit Radiation Oncology, [address] [place] [address] Michele Goodrich MD [address] [place] [address] [place] [address] 03/23/2024 3:40 PM EST Office Visit Family Practice [address] [place] [address] [address] [facility] [address] Zafar Tinajero, 293 [facility] [place] [address] 03/29/2024 11:40 AM EST Office Visit Otolaryngology [facility] 132 [facility] [place] [address] Mimi Jordan PA-C 132 [facility] [place] [address] 06/05/2024 2:00 PM EST Office Visit Podiatry [facility] 132 [facility] [address] Jen Bourne DPM 132 [facility] [place] [address] 07/03/2024 11:45 AM EST Office Visit Urology, [facility] 132 [facility] [place] [address] Josh Savage MD 27 [facility] [place] [address] 09/04/2024 3:00 PM EDT Office Visit Allergy/Immunology [facility] [address] [place] [address] Dameon Vasquez MD [address] [place] [address] 10/15/2024 11:00 AM EDT Office Visit Cardiology, [facility] [address] Bakari Yu DO [address] [facility] [address] 01/08/2025 2:00 PM EDT Office Visit Allergy/Immunology [facility] [address] [place] [address] Britta Sullivan PA-C [address] [place] [address] Scheduled Orders Name Type Priority Associated Diagnoses [...] Documents on File Type Date Recorded Patient [employer] Officer Expl anation POLST 12/09/2022 10:36 AM POLST [...] the patient have Health Care Power of Janitorial Supervisor? Yes, in chart and reviewed as [...] Grey jung (per Health Care Power of Janitorial Supervisor document) [email or web address] Care Teams Organic Chemist Relationship Specialty Start Date End Date Zafar Tinajero DO [address] [place] [address] PCP - General Internal Medicine 12/27/23 documented as of this encounter
--- OUTSIDE RECORDS SUMMARY | 2024-08-10 07:26 | External Medical Summary | Summary of Care ---
Author Name Unknown Organization [facility] Address [address] [place] [address] Phone [phone] Care Team Providers Care Gift Shop Assistant Name Role Phone Zafar Tinajero DO Primary Care Provider [phone] Reason for Visit * Reason Comments Allergy Return Encounter Details Date Type Department Care Team (Late st Contact Info) Description 03/06/2024 3:30 PM EDT Office Visit Allergy/Immunology [facility] [address] [place] [address] Dameon Vasquez MD [address] [place] [address] Nasal polyp*; Nasal congestion; Smell and taste disorder; Nonallergic rhinitis Allergies Active Allergy Reactions Criticality Noted Date Comments Codeine Sulfate High 08/05/2010 Throat swelling Oxycodone-Acetaminophen 08/22/2023 documented as of this encounter (statuses as of 03/07/2024) Medications Medication Sig Dispensed Refills Start Date End Date Status ASPIRIN 81 MG PO CHEWIndications: INTERFACED RESULT take one tablet daily 30 Tab 11 04/18/2012 Active PRESERVISION AREDS 2 PO CAPS Take 1 capsule by mouth twice daily Active Glucose Blood (ONETOUCH VERIO) STRP Test blood sugar twice times daily or as directed E11.9 200 Strip 3 11/05/2019 Active Dutasteride 0.5 MG Oral Capsule (Avodart) Take 1 Capsule by mouth in the morning. 90 Capsule 3 12/08/2022 Active Additional Information Patient not taking.Reported on 03/05/2024 Fluticasone-Salm eterol 250-50 MCG/ACT Inhalation Aerosol Powder Breath Activated (Advair Diskus) Inhale 1 Puff by mouth in the morning and 1 Puff before bedtime. 180 Each 2 08/25/2023 Active Lisinopril 10 MG Oral Tablet (Prinivil)Indica tions:HTN, goal below 140/90 Take 1 Tablet by mouth in the morning. 90 Tablet 1 11/08/2023 Active amLODIPine Besylate 5 MG Oral Tablet (Norvasc) Take 1 Tablet by mouth in the morning. 90 Tablet 1 11/08/2023 Active Atorvastatin Calcium 40 MG Oral Tablet (Lipitor)Indicat ions:Dyslipidemi a, goal LDL below 100 Take 1 Tablet by mouth daily. 90 Tablet 1 11/08/2023 Active Latanoprost 0.005 % Ophthalmic Solution (Xalatan)Indicat ions:Other glaucoma of both eyes Instill 1 drop into both eyes once daily 2.5 mL 12 12/02/2023 Active Fluticasone Propionate 50 MCG/ACT Nasal Suspension (Flonase)Indicat ions:Nasal polyp Administer 2 Sprays into each nostril in the morning. 48 g 3 03/06/2024 Active Fluticasone Propionate 50 MCG/ACT Nasal Suspension (Flonase)Indicat ions:Nasal polyp Administer 2 Sprays into each nostril in the morning. 16 g 10 01/05/2024 4 Discontinue d(Refill) Hospital, Clinic, or Other Facility Administered Medication [...] as of this encounter (statuses as of 03/07/2024) Active Problems Problem Noted Date Diagnosed Date [...] in the Comments) Remote Patient Monitoring Vendor: [facility] Device(s): Connected Scale Self - Management Plan [...] Continue injections Coronary artery disease invo lving hyd[place] coronary artery of [place] heart without angina pectoris 05/10/2018 Last Assessment [...] as of this encounter (statuses as of 03/07/2024) Resolved Problems Problem Noted Date Diagnosed Date [...] externa, chronic 08/24/201207/08 Resolute Integrity Clinical Trial [id number] 05/18/2012 05/16/2013 Overview: Renamed per the Centers for Medicare and Medicaid billing requirements to include Clinical Trial.gov number. Resolute Integrity Clinical Trial [id number] 05/18/2012 04/01/2014 Overview: Renamed per the Centers for Medicare and Medicaid billing requirements to include Clinical Trial.gov number. [employer] Other*[id number] 04/17/2012 06/15/2016 Overview: Study Title: Genomic Markers for Patients with Cardiovascular Disease Project # [id number] Annealer: Jennifer Xiong MD [phone] HTN, GOAL BELOW 140/80 12/27/201108/13 Overview: Per [...] as of this encounter (statuses as of 03/07/2024) Immunizations Name Administration Dates Next Due COVID-19 mRNA, LNP-s, No Pre serve, 2-Dose Series (Moderna) 07/18/2020,06/06/2020 COVID-19, MRNA-LNP, 23-24, P F, 30 MCG/0.3 mL, 12 YRS AND ABOVE, IM (PFIZER-Comirnaty) 03/23/2023 COVID-19, MRNA-LNP, 24-25, P R, 30MCG/0.3ML, IM, 12YRS AND ABOVE (Pfizer-Comirnaty) 01/26/2024 COVID-19, mRNA, LNP-s, PF, B ooster, 100mcg/0.5mg (Moderna) 09/01/2021,03/02/2021 Covid-19, Mrna, Lnp-s, Pf, B ivalent, 30 Mcg, IM, 12 yrs and above (Pfizer) 02/24/2022 Diptheria/Tetanus (Adult) 03/05/1997 Pneumococcal Conjugate Vacc, 13 Valent (Prevnar) 02/14/2015 Pneumococcal Conjugate Vacci ne, 20-valent ([id number]) 01/26/2024 Pneumococcal Conjugate Vacci ne, 7 Valent [...] Past Smokeless Tobacco: Never Tobacco Cessation:Counseling Given: Not Answered Comments:No passive smoke exposures Alcohol Use Standard [...] Sign Reading Time Taken Comments Blood Pressure 132/68 03/06/2024 3:28 PM EDT Pulse 75 03/06/2024 3:28 PM EDT Temperature - - Respiratory Rate 18 03/06/2024 3:28 PM EDT Oxygen Saturation 95% 03/06/2024 3:28 PM EDT Inhaled Oxygen Concentration - - Weight 75.2 kg (165 lb 11.2 oz) 03/06/2024 3:28 PM EDT Height 160.7 cm (5' 3.25") 03/06/2024 3:28 PM ED T Body Mass Index 29.12 03/06/2024 3:28 PM EDT documented in this encounter Functional Status Functional Status Response [...] as of this encounter Progress Notes * Dameon Vasquez MD - 03/06/2024 3:33 PM EDT REASON FOR VISIT: Chief Complaint Patient presents with Allergy Return SUBJECTIVE: Mr. Sepulveda is evaluated in follow up for his chronic nasal congestion, nasal polyps, smell and taste disorder, history of sinusitis and asthma. As you may recall, the patient was on Dupixent for the 1st 6 months of 2022. He had significant benefit from this and felt that it was very effective. However he does have a history of macular degeneration and he concerns by dupilumab affecting his macular degeneration despite no association between the two. The patient has noted increased nasal congestion over the last 2 weeks. He presumes that this is likely due to the drastic changes in the barometric pressure and more likely the drastic changes in the temperature. He also notes that this can affect his nasal polyps. He has been continuing on his Flonase 1 spray to each nostril twice daily.He precedes this with use of a normal saline sinus rinse. Prior to the last 2 weeks, generally he was doing well for the last year even after being off of the Dupixent. 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 Since then he has been doing relatively well. 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, group B, by GOLD 2017 classification ([facility]) Nonallergic rhinitis Primary open-angle glaucoma, bilateral, indeterminate stage Chronic diastolic heart failure (HCC) Hypertensive heart disease with chronic diastolic congestive heart failure (HCC) Generalized weakness Adenocarcinoma, lung, left (HCC) Past Medical History: Diagnosis Date Adenocarcinoma, lung, left (HCC) 10/18/2023 Asthma Asthma with severity to be determined 05/22/2019 Benign localized hyperplasia of prostate without urinary obstruction and other lower urinary tract symptoms (LUTS) Benign neoplasm of colon 12/14/2006 adenomatous tissue-repeat colonoscopy in 5 years Chronic rhinitis 09/21/2012 COPD, moderate ([facility]) 04/29/2016 Coronary artery disease involving [place] coronary artery of [place] heart without angina pectoris 05/10/2018 DM type 2, goal A1c below 7 03/06/2009 Per Diabetes Taxonomy. DM type 2, not at goal (HCC) Dyslipidemia, goal LDL below 100 04/17/2009 Per Lipid Taxonomy. ELEVATED PROSTATE SPECIFIC ANTIGEN 03/06/1999 Esophageal reflux 08/24/2012 Excessive cerumen in ear canal 08/24/2012 [employer] Other*[id number] 04/17/2012 Study Title: Genomic Markers for Patients with Cardiovascular Disease Project # [id number] PrincipalInvestigator: Jennifer Xiong MD [phone] GLAUCOMA NEC 08/09/1999 HTN, goal below 140/80 12/27/2011 Per HTN Protocol #27. Hx of corneal abrasion LIPOMA SKIN NEC 05/13/2003 Lung nodule Macular degeneration 04/10/2014 OD wet Eylea injections started, Dr. Yap NASAL POLYP NOS 11/22/2001 Nasal polyps 08/24/2012 Otitis externa, chronic 08/24/2012 Prediabetes 10/18/2023 Presence of drug coated stent in LAD coronary artery 04/19/2012 Resolute Integrity Clinical Trial [id number] 05/18/2012 Renamed per the Centers for Medicare and Medicaid billing requirements to include Clinical Trial.gov number. Seasonal allergies Sensorineural hearing loss, bilateral 08/24/2012 Sleep-disordered breathing 08/24/2012 Smell and taste disorder 02/07/2013 Snoring disorder 08/24/2012 Type 2 diabetes mellitus with hemoglobin A1c goal of less than 7.0% ([facility]) 03/06/2009 Per Diabetes Taxonomy. ICD-10 update of inactive term Past Surgical History: Procedure Laterality Date COLONOSCOPY W/ BIOPSY (RECTUM) 12/14/2006 Tubular adenoma polyp of colon (2) ; repeat in 5 years COLONOSCOPY, DIAGNOSTIC (RECTUM) 08/1998 Negative for polyps COLONOSCOPY, DIAGNOSTIC (RECTUM) 04/08/2015 COLONOSCOPY FLEXIBLE PROXIMAL DIAGNOSTIC performed by Peña Moss MD at [facility]OSCOPY [facility] COLONOSCOPY, DIAGNOSTIC (RECTUM) N/A 02/26/2020 COLONOSCOPY FLEXIBLE PROXIMAL DIAGNOSTIC performed by Yovani Saldivar MD at ENDOSCOPY [facility] COLONOSCOPY, REMOVE LESION 12/2003 tubular adenoma transverse colon-repeat in 3 years COLORECTAL CANCER SCREEN; COLON 01/20/2009 repeat in 5 years CORONARY ANGIOGRAPHY W/LEFT HEART CATH 04/17/2012 CORONARY ANGIOGRAPHY W/LEFT HEART CATH performed by Jennifer Xiong MD at CARDIAC LABS [facility] CYSTOSCOPY 02/2005 Dr. Leroy- benign, enlarged prostate EGD, FLEXIBLE, DIAGNOSTIC N/A 02/26/2020 ESOPHAGOGASTRODUODENOSCOPY (EGD), FLEXIBLE, TRANSORAL, DIAGNOSTIC performed by Yovani Saldivar MD at[facility] EXPLORE, TREAT ANKLE JOINT 07/2005 ORIF fracture [...] OF EYE DRUG Left 10/20/2017 # 2 Lucwilbur 0.5mg OS, Dr. Yap INJECTION OF EYE [...] Left 05/19/2023 # 3 Avastin OS, Dr. aYp INJECTION OF EYE DRUG Left 06/24/2023 #1 vABYSMO OS; DR YAP INJECTION OF EYE DRUG Left 08/22/2023 #2 Vabysmo OS; Dr Yap INJECTION OF EYE DRUG Left 10/14/2023 #3 Vabysmo OS, Dr. Yap INJECTION OF EYE DRUG Left 12/02/2023 #[address] Yap INJECTION OF EYE DRUG Left 01/18/2024 #5 Vabysmo OS, Dr. Yap INTRAVASCULAR STENT, OPEN, FIRST VESSEL 04/17/2012 mid LAD Resolute drug eluting stent- Dr. Xiong IR BIOPSY 10/13/2023 LASERING OF SECONDARY CATARACT Right OD Dr. Pemberton MISCELLANEOUS ORDER ([facility] ONLY) 01/02/2009 Excision epidermoid cyst groin Dr. Limon MISCELLANEOUS ORDER ([facility] ONLY) Right 04/10/2014-04/10/2015 EYLEA OD CONSENT SIGNED, Dr. Frcaisco BIANCHI ORDER ([facility] ONLY) Left 09/01/2016-09/01/2017 Eylea OS Consent signed, Dr Fracisco BIANCHI ORDER ([facility] ONLY) Left 09/14/2017-09/14/2018 Lucentis 0.5mg OS consent signed, Dr. Fracisco YUCELLSABRINA ORDER ([facility] ONLY) Left 11/30/2017-11/30/2018 Eylea OS consent signed, Dr. Fracisco BIANCHI ORDER ([facility] ONLY) ACT 112 signed, 07/26/2018 MISCELLANEOUS ORDER ([facility] ONLY) Left 11/29/2018-11/30/2019 EYLEA CONSENT OS SIGNED; DR FRACISCO BIANCHI ORDER ([facility] ONLY) Left 08/08/2019-08/07/2020 LUCENTIS 0.5MG OS CONSENT SIGNED; DR FRACISCO ADAMSON ([facility] ONLY) Left 11/29/2019-11/28/2020 EYLEA OS CONSENT [...] Pemberton REVISE KNEE JOINT REPLACEMENT Left 03/27/2018 Current Outpatient Medications Medication Sig Dispense Refill ASPIRIN 81 MG PO CHEW take one tablet daily 30 Tab 11 PRESERVISION AREDS 2 PO CAPS Take 1 capsule by mouth twice daily Glucose Blood (yuilop SLUCH VERIO) STRP Test blood sugar twice times daily or as directed E11.9 200 Strip 3 Fluticasone-Salmeterol 250-50 MCG/ACT Inhalation Aerosol Powder [...] Sprays into each nostril in the morning. 16 g 10 Dutasteride 0.5 MG Oral Capsule (Avodart) Take 1 Capsule by mouth in the morning. (Patient not taking: Reported on 03/05/2024) 90 Capsule 3 Current Facility-Administered Medications Medication Dose Route Frequency Provider Last Rate Last Admin Faricimab-svoa (Vabysmo) intravitreal inj 6 mg 6 mg Intravitreal PRN Rohith Yap DO 6 mgat 01/18/24 0814 ROPivacaine (Naropin) inj 1.5 mg 1.5 mg Injection PRN Rohith Yap DO 1.5 mg at 01/18/24 0814 Review of patient's allergies indicates: Allergen Reactions Codeine Sulfate Throat swelling Oxycodone-Acetaminophen Family History Problem Relation Name Age of Onset Heart Disorder Mother age 86-heart dx; had had longstanding arthritis Allergies Mother History of nasal polyps Heart Disorder Sister heart surgery-valve replacement -age 70 Cancer Brother half-brother- uncertain type cancer-possibly brain tumor- in his 60's Cancer Brother areli Diabetes Father onset age 75- age 93 No Known Problems Sister No Known Problems Sister Social History Tobacco Use Smoking status: Former Current packs/day: 0.00 Average packs/day: 0.5 packs/day for 5.0 years (2.5 ttl pk-yrs) Types: Cigarettes Start date: 05/09/1974 Quit date: 05/09/1979 Years since quittin.8 Passive exposure: Past Smokeless tobacco: Never Tobacco comments: No passive smoke exposures Vaping Use Vaping status: Never Used Substance Use Topics Alcohol use: Not Currently Comment: rare glass of wine or beer/socially Drug use: No Vaping/E-Cigarette Use Vaping/E-Cigarette Use Never User Environment/Occupation/Activities of Daily Living: He lives in a two-story house. There is heat pump and central air conditioning. Basement is dry with dehumidifier. Indoor pets include 1 dog. Bedroom is 1st floor and carpeted. Sleeps on a mattress bed. He is retired, currently not working outside the home. BP 132/68 | Pulse 75 | Resp 18 | Ht 1.607 m (5' 3.25") | Wt 75.2 kg (165 lb 11.2 oz) | SpO2 95% | BMI 29.12 kg/m² | BSA 1.83 m² PHYSICAL EXAM: GENERAL: No acute distress. HEAD AND FACE: No sinus tenderness noted EYES: Conjunctiva- normal; Eyelids - normal EARS: TM's - clear NOSE:Pale mucosa; nasal polyposis noted bilaterally (R > L); Septum - mild deviation to L OROPHARYNX: Mild erythema, cobblestoning; No lesions, exudates NECK: Supple; No thyroid enlargment or cervical adenopathy RESPIRATORY: Clear to A and P; No wheezes; Good air movement bilaterally. CARDIOVASCULAR: RRR; No gallops, rubs, clicks, or murmurs. LYMPHATIC: No significant adenopathy noted SKIN: No evidence atopic dermatitis; no urticaria or angioedema Normal skin quality OBJECTIVE DATA: BMI 27. Flow loops obstructive. Spirometry with moderate obstruction. No significant bronchodilator response. No prior PFT to compare.This interpretation has been electronically signed: Lazaro Cisneros 02/02/2022 03:33:[address] SINUSES WO CONTRAST - 01/19/2021 3:11 pm FINDINGS There is near complete opacification throughout the nasal cavity sparing only a portion of the inferior meatus on the right side. There is moderate leftward deviation of the nasal septum with a spur projecting into the left middle meatus. There is complete opacification of the frontal, ethmoid and sphenoid sinuses. There are changes suggestive of prior maxillary antrostomies. There is moderate opacification of the left maxillary sinus and complete opacification of the rightmaxillary sinus. There is mild reactive thickening of the sinus valencia. Incidental note is made of a slightly depressed fracture of the distal nasal bones and anterior nasal septum new since the prior exam. The cribriform plate and hard palate are intact. There is Keros type 2 anatomy of the olfactory fossa. The optic canals are intact and do not protrude greater than 50% into the sphenoid sinuses. No erosions or gross asymmetric enlargement of the foramina rotundum or vidian canals appreciated No acute periodontal disease is detected. In the anterior sinonasal region the fronto-ethmoidal recesses are patent. There is no mucosal thickening or fluid in the frontal sinuses or anterior ethmoid air cells. The ostiomeatal units are patent. The maxillary sinuses are clear. The margins of the left foramen rotundum appear demineralized on the coronal series. The skull baseforamina are otherwise unremarkable. No gross malalignment of the temporomandibular joints is appreciated. No intraorbital mass or edema is appreciated. Within the limitations of technique, the visualized brain and soft tissues of the suprahyoid neck demonstrate no acute abnormality. The visualized portions of the middle ear cavities are well aerated. IMPRESSION 1. 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 2. Moderate leftward deviation of the nasal septum 3. Demineralization of the left sphenoid bone adjacent to the foramen rotundum which may indicate pathology of the V2 branch of the trigeminal nerve although osseous metastasis and Paget's disease are also in the differential diagnosis. This could be further characterized by MRI of the brain without and with contrast. 4. Subacute/chronic depressed fracture of the distal nasal bones and anterior nasal septum. Allergy skin testing 01/13/21 revealed all negative results in the face of adequate positive histamine controls. ASSESSMENT: ICD-10-CM 1. Nasal polyp J33.9 2. Nasal congestion R09.81 3. Smell and taste disorder R43.9 4. Nonallergic rhinitis J31.0 PLAN: This patient has a long-standing history of chronic rhinitis complicated by chronic sinusitis and nasal polyps. He had nasal polypectomy and sinus surgery 20 years ago. Most recent allergy skin testswere negative ruling out underlying allergic factors that may play a role. We did review that chronic nonallergic rhinitis can be triggered by drastic changes in the barometric pressure, drastic changes in the temperature, and seasonal changes in general and he does believe that this may be playinga role. As you may recall, the patient was on Dupixent during the 6-7 months of 2022. He states that hedid get significant benefit but he did want to stop so it has been discontinued. He was re considering starting it although his nasal congestion has not been affecting him drastically until the last 2 weeks. We will hold off on reinitiating Dupixent for now but this can be entertained in the futureif necessary. Also of note, he had trouble finding family members who would administer the Dupixentto him. From a chronic nonallergic rhinitis standpoint, we do recommend he continue with Flonase 2 sprays each nostril daily. We also recommend that this should be preceded by the use of sinus rinses with distilled water. Given his increased nasal congestion as of recently, he may increase his Flonase to 2sprays each nostril twice daily over the next 2-4 weeks. Thank you very much for allowing myself to participate in the care of your patient. Please do not hesitate to contact our office should you have any questions or concerns overall. Dameon Vasquez MD Allergy/Immunology I spent a total of 20-29 minutes (exact time 24 mins) on the date of service in preparation, delivery, and documentation of the care provided to Star Sepulveda excluding any time spent in the performance of separately billed services or time spent by another provider/QHP. (This note was completed using the dictation program Fluency Direct. As such, there may be misspellings, word substitutions, or other variations that should not change the essence of the clinical content of this encounter note.If there is need for further clarification, please direct questions to the provider listed above.) documented in this encounter Nursing Notes * Meseret De Anda LPN - 03/06/2024 3:25 PM EDT The pt has been properly identified by confirmation of name and date of . Pt presents for allergy follow up. Pt states recently had radiation on lungs (11/2023), pt states 2-3 weeks sinuses have been congested. documented in this encounter Plan of Treatment Upcoming Encounters Date Type Department Care Team (Late st Contact Info) Description 03/08/2024 11:00 AM EDT Office Visit Ophthalmology, Health system [address] [facility] [place] [address] Rohith Yap, [address] [facility] [place] [address] 03/13/2024 1:15 PM EST Imaging Radiology [facility] [facility] [address] [facility] [place] [address] 03/22/2024 11:30 AM EST Office Visit Radiation Oncology, [address] [address] Michele Goodrich MD [address] [place] [address] [place] [address] 03/23/2024 3:40 PM EST Office Visit Family Practice [address] [place] [address] [place] [address] Zafar Tinajero, [address] [place] [address] 03/29/2024 11:40 AM EST Office Visit Otolaryngology Health system [address] [facility] [place] [address] Mimi Jordan [facility]-C [facility] [place] [address] 06/05/2024 2:00 PM EST [facility] [place] [address] Jen Bourne DPM [facility] [place] [address] 07/03/2024 11:45 AM EST Office Visit Urology, Health system [address] [facility] [place] [address] Josh Savage MD [address] [place] [address] 09/04/2024 3:00 PM EDT Office Visit Allergy/Immunology [facility] [address] [place] [address] Dameon Vasquez MD [address] [place] [address] 10/15/2024 11:00 AM EDT Office Visit [facility]iology[facility] [address] [facility] [place] [address] Bakari Yu, DO [address] [facility] [place] [address] 01/08/2025 2:00 PM EDT Office Visit Allergy/Immunology [facility] [address] [place] [address] Britta Sullivan PA-C [address] [place] [address] Health Maintenance Due Date Last Done Comments Adult Wellness Visit 10/23/2001 Diabetic Eye Exam 07/27/2023 07/26/2022, , 07/10/2021, Additional history exists HbA1c 12/13/2023 06/14/2023, 10/07, 06/22/2022, Additional history exists Albumin/Creatinine Ratio 06/14/2024 024, 06/22/2022, 06/19/2021, Additional history exists Depression Screening 06/14/2024 06/14/2023 Diabetic Foot Exam 06/14/2024 06/14/2023, 0 06/22/2022, 06/19/2021, Additional history exists O2 ASSESSMENT COMPLETED IN PAST YEAR FOR COPD 03/06/2025 03/06/2024 DTap/Tdap Vaccines (3 - Td or Tdap) [...] as of this encounter Visit Diagnoses Diagnosis Nasal polyp- Primary Unspecified nasal polyp Nasal congestion Other diseases of nasal cavity and sinuses Smell and taste disorder Disturbances of sensation of smell and taste Nonallergic rhinitis Chronic rhinitis documented in this encounter Advance Directives Documents on File Type Date Recorded Patient Director Employment Expl joanna AQUINO 12/09/2022 10:36 AM POL * Full Code [...] the patient have Health Care Power of Customer Engineer? Yes, in chart and reviewed as current [...] Agents on File Name Relationship Healthcare Agent [facility] Communication Florencia Lindquist Adult Child Health Care Agen t (per Health Care Power of Customer Engineer document) [email or web address] Gift Shop Assistant Relationship Specialty Start Date End Date Zafar Tinajero DO [address] [place] [address] PCP - General Internal Medicine 12/27/23 documented as of this encounter
--- OUTSIDE RECORDS SUMMARY | 2024-08-10 07:26 | External Medical Summary | Summary of Care ---
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 of assiniboine and sioux heart without angina pectoris*; Presence of drug coated stent in LAD coronary artery; RBBB (right bundle branch block); Dyslipidemia, goal LDL below 70; Essential hypertension with goal blood pressure less than 140/90; LAFB (left anterior fascicular block) Allergies Active Allergy Reactions Criticality Noted Date Comments Codeine Sulfate High 08/05/2010 Throat swelling Oxycodone-Acetaminophen 08/22/2023 documented as of this encounter (statuses as of 03/05/2024) Medications Medication Sig Dispensed Refills Start Date End Date Status ASPIRIN 81 MG PO CHEWIndications:IN TERFACED RESULT take one tablet daily 30 Tab [...] Additional Information Patient not taking.Reported on 03/05/2024 Fluticasone-Salmet teresa 250-50 MCG/ACT Inhalation Aerosol Powder Breath Activated (Advair Diskus) Inhale 1 Puff by mouth in the morning and 1 Puff before bedtime. 180 Each 2 08/25/2023 Active Lisinopril 10 MG Oral Tablet (Prinivil)Indicati ons:HTN, goal below 140/90 Take 1 Tablet by mouth in the morning. 90 Tablet 1 11/08/2023 Active amLODIPine Besylate 5 MG Oral Tablet (Norvasc) Take 1 Tablet by mouth in the morning. 90 Tablet 1 11/08/2023 Active Atorvastatin Calcium 40 MG Oral Tablet (Lipitor)Indicatio ns:Dyslipidemia, goal LDL below 100 Take 1 Tablet by mouth daily. 90 Tablet 1 11/08/2023 Active Latanoprost 0.005 % Ophthalmic Solution (Xalatan)Indicatio ns:Other glaucoma of both eyes Instill 1 drop into both eyes once daily 2.5 mL 12 12/02/2023 Active Fluticasone Propionate 50 MCG/ACT Nasal Suspension (Flonase)Indicatio ns:Nasal polyp Administer 2 Sprays into each nostril in the morning. 16 g 10 01/05/2024 Active Hospital, Clinic, or Other Facility Administered [...] as of this encounter (statuses as of 03/05/2024) Active Problems Problem Noted Date Diagnosed Date [...] Comments) Remote Patient Monitoring Vendor: [facility] Device(s): Connected Scale Self - Management Plan [...] Continue injections Coronary artery disease invo lving assiniboine and sioux coronary artery of assiniboine and sioux heart without angina pectoris 05/10/2018 Last Assessment [...] as of this encounter (statuses as of 03/05/2024) Resolved Problems Problem Noted Date Diagnosed Date [...] externa, chronic 08/24/201207/08 [employer] Clinical Trial [id number] 05/18/2012 05/16/2013 Overview: Renamed per the Centers for Medicare and Medicaid billing requirements to include Clinical Trial.gov number. [employer] Clinical Trial [id number] 05/18/2012 04/01/2014 Overview: Renamed per the Centers for Medicare and Medicaid billing requirements to include Clinical Trial.gov number. [employer] [facility] Other*[id number] 04/17/2012 06/15/2016 Overview: Study Title: Genomic Markers for Patients with Cardiovascular Disease Project # [id number] Vision Therapist: Jennifer Xiong MD [phone] HTN, GOAL BELOW 140/80 12/27/201108/13 Overview: Per [...] as of this encounter (statuses as of 03/05/2024) Immunizations Name Administration Dates Next Due COVID-19 mRNA, LNP-s, No Pre serve, 2-Dose Series (Moderna) 07/18/2020,06/06/2020 COVID-19, MRNA-LNP, 23-24, P F, 30 MCG/0.3 mL, 12 YRS AND ABOVE, IM (PFIZER-Comirnaty) 03/23/2023 COVID-19, MRNA-LNP, 24-25, P R, 30MCG/0.3ML, IM, 12YRS AND ABOVE (Pfizer-Comirnat) 01/26/2024 COVID-19, mRNA, LNP-s, PF, B ooster, 100mcg/0.5mg (Moderna) 09/01/2021,03/02/2021 Covid-19, Mrna, Lnp-s, Pf, B ivalent, 30 Mcg, IM, 12 yrs and above (Pfizer) 02/24/2022 Pneumococcal Conjugate Vacc, 13 Valent (Prevnar) 02/14/2015 Pneumococcal Conjugate Vacci ne, 20-valent (Oixzovm25) 01/26/2024 Pneumococcal Polysaccharide PPV23 (Pneumovax) 06/16/2012 RSV [...] Sign Reading Time Taken Comments Blood Pressure 136/68 03/05/2024 2:25 PM EDT Pulse 80 03/05/2024 2:25 PM EDT Temperature - - Respiratory Rate 16 03/05/2024 2:25 PM EDT Oxygen Saturation - - Inhaled Oxygen Concentration - - Weight 74.8 kg (164 lb 12.8 oz) 03/05/2024 2:25 PM EDT Height - - Body Mass Index 28.96 12/27/2023 4:43 PM EDT documented in this encounter Functional [...] as of this encounter Progress Notes * Bakari Yu, - 03/05/2024 2:45 PM EDT SUBJECTIVE: Patient returns today for follow-up of chronic CAD with LAD stenting 2011, dyslipidemia, and hypertension. Diagnosed with adenocarcinoma of the lung. Currently receiving treatment with radiation. Chronic shortness of breath unchanged. Denies chest pain or heaviness. No lightheadedness, or dizziness. Lower extremity edema well controlled. Wearing compression stockings sporadically. No orthopnea, PND, or weight gain. Offers no concerns/complaints. ECG: Sinus rhythm with first-degree AV block, right bundle branch block, left anterior fascicular block 2D echo report 01/06/2022: The qualitative LV ejection fraction is 55-59% (normal). The left ventricular diastolic function is mildly abnormal (grade I). Mild aortic valve sclerosis is present. Trace tricuspid regurgitation. There is no evidence of pulmonary hypertension. 2D echo report summary 02/09/2021: The qualitative LV ejection fraction is 50-54% (normal). The left ventricular wall motion is normal. The left atrium is mildly enlarged (35-41 ml/m^2). The left ventricular diastolic function is mildly abnormal (grade I). Moderate aortic valve sclerosis is present. There is moderate mitral annular calcification. Mild mitral regurgitation is present. Mild tricuspid regurgitation is present. Normal IVC size and collapsability with sniff indicates a normal right atrial pressure of 3 mmHg. There is no evidence of pulmonary hypertension. Dobutamine stress echo report 08/2017: The stress echo is negative for inducible ischemia. Resting Study: The qualitative LV ejection fraction is 55-59% (normal). The left ventricular diastolic function is mildly abnormal (grade I). Moderate aortic valve sclerosis is present. Mild mitral regurgitation is present. Trace tricuspid regurgitation. CXR report 07/26/2017: Mild airspace opacities at the medial right lung base are suspicious for mild pneumonia. ROS: All others negative other than those noted in the HPI. 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, group B, by GOLD 2017 classification (HCC) Nonallergic rhinitis Primary open-angle glaucoma, bilateral, indeterminate stage Chronic diastolic heart failure (HCC) Hypertensive heart disease with chronic diastolic congestive heart failure (HCC) Generalized weakness Adenocarcinoma, lung, left (HCC) Social History Tobacco Use Smoking status: Former Smoker Packs/day: 1.00 Years: 15.00 Pack years: 15.00 Types: Cigarettes Last attempt to quit: 05/09/1979 Years since quittin.8 Smokeless tobacco: Never Used Substance Use Topics Alcohol use: Yes Alcohol/week: 0.0 oz Comment: rare glass of wine or beer/socially Drug use: No Review of patient's allergies indicates: Allergen Reactions Codeine Sulfate Throat swelling Oxycodone-Acetaminophen Current Outpatient Medications Medication Sig Dispense Refill ASPIRIN 81 MG PO CHEW take one tablet daily 30 Tab 11 PRESERVISION AREDS 2 PO CAPS Take 1 capsule by mouth twice daily Glucose Blood (BuzzeroTOUCH VERIO) STRP Test blood sugar twice times [...] PRN Rohith Yap, DO 1.5 mg at 01/18/24 0814 OBJECTIVE/PHYSICAL EXAMINATION: BP 136/68 (BP Site: Left Arm, BP Position: Sitting, BP Cuff Size: Large) | Pulse 80 | Resp 16 | Wt 74.8 kg (164 lb 12.8 oz) | BMI 28.96 kg/m² | BSA 1.83 m² General: NAD, AAO x3, well nourished. HEENT: Normocephalic. Atraumatic. Conjunctiva pink, no scleral icterus. No carotid bruits, the carotid upstrokes are brisk. No JVD. No HJR Heart: Regular with ectopy, normal S-1 and S-2 no S-3 or S-4 gallop. No murmurs or rubs appreciated. PMI is not displaced.No RV heave. Lungs: Clear bilateral, No rhonchi, wheeze, or rales. Abdomen: Normal bowel sounds. Soft. Nontender. No masses or organomegaly. No abdominal bruits. Extremities: Trace to mild B/L pedal and ankle edema. Pulses: radial=2/4, posterior tibial=2/4. Neuro: No focal deficits. ASSESSMENT: 1. Chronic coronary disease with history of LAD stenting 2011 -clinically stable without angina -dobutamine stress ECHO negative for inducible ischemia 08/2017 2. 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 - ECG stable and unchanged today - asymptomatic 3. Hypertension - controlled 4. Dyslipidemia - well controlled 5. Chronic lower extremity edema secondary to venous insufficiency -edema controlled with compression stockings -diuretic therapy discontinued -echocardiogram demonstrates preserved LV systolic function with mild, grade 1 diastolic dysfunction. 6. Adenocarcinoma of the lung - currently treated with radiation 7. Diabetes type 2 - controlled per most recent hemoglobin A1c 6.2% PLAN: Natural history and pathophysiology of underlying conduction disease reviewed. Patient will monitorfor any lightheadedness, dizziness, syncope, or near syncope. Continue current cardiovascular medications including atorvastatin, aspirin, amlodipine, and lisinopril. Monitor daily weight and edema. Recommend sodium restriction, less than 2 g daily. Update fasting lipid panel and CMP spring 2024. Fall precautions advised. All questions answered to patient's satisfaction. He is agreeable to the current plan, however, will report any change or decline in clinical status. Follow Up: Return in about 6 months (around 09/03/2024). I spent a total of 30-39 minutes (exact time 30 mins) on the date of service in preparation, delivery, and documentation of the care provided to Star Sepulveda excluding any time spent in the performance of separately billed services. Bakari Yu DO, FACC Associate Cardiology - [facility] documented in this encounter Nursing Notes * Nasra Stephen CMA - 03/05/2024 2:45 PM EDT Examination Room: 13 Name: Star Sepulveda Date of : (1935). Reason for Visit: 6M f/u Interim Hospitalization(s): none Problems/Concerns: denies Chest Pain/SOB: denies [facility] Discussed: No My [facility] is a way you can talk to your provider online through e-mail. Would you like to sign up? I can activate it for you? ALREADY ACTIVE Patient was instructed to not get up on the exam table until directed and assisted by their provider; patient is to remain seated in the chair/ wheelchair/ exam table for fall prevention and safety reasons. Patient is aware to have assistance to step down off exam table with personnel. Patient voiced full comprehension of instructions. documented in this encounter Plan of Treatment Upcoming Encounters Date Type Department Care Team (Late st Contact Info) Description 03/06/2024 3:30 PM EDT Office Visit Allergy/Immunology [facility] [address] [facility] [place] [address] Dameon Vasquez MD [address] [facility] [place] [address] 03/08/2024 11:00 AM EDT Office Visit Ophthalmology, [facility] [address] [place] [address] Rohith Yap DO [address] [place] [address] 03/13/2024 1:15 PM EST Imaging Radiology [address] [place] [address] 03/22/2024 11:30 AM EST Office Visit Radiation Oncology, [place] [address] [place] [address] Michele Goodrich MD [address] [place] [address] [place] [address] 03/23/2024 3:40 PM EST Office Visit Family Practice [address] [place] [address], [place] [address] [facility] [place] [address] Zafar Tinajero, DO [address] [facility] [place] [address] 03/29/2024 11:40 AM EST Office Visit Otolaryngology [facility] [address] [facility] [place] [address] Mimi Jordan PA-C [address] [facility] [place] [address] 06/05/2024 2:00 PM EST Office Visit Podiatry [facility] [address] [facility] [place] [address] Jen Bourne, THOMAS [facility] [place] [address] 07/03/2024 11:45 AM EST Office Visit Urology, [facility] [address] [facility] [place] [address] Josh Savage MD [address] [place] [address] 10/15/2024 11:00 AM EDT Office Visit Cardiology, [facility] [address] [facility] [place] [address] Bakari uY, DO [address] [facility] [place] [address] 01/08/2025 2:00 PM EDT Office Visit Allergy/Immunology [facility] Cheng [address] [place] [address] Britta Sullivan PA-C [address] [place] [address] Scheduled Orders Name Type Priority Associated Diagnoses Orde r Schedule EKG EKG Routine Coronary artery disease involving assiniboine and sioux coronary artery of assiniboine and sioux heart without angina pectoris Presence of drug coated stent in LAD coronary artery RBBB (right bundle branch block) Dyslipidemia, goal LDL below 70 Essential hypertension with goal blood pressure less than 140/90 Ordered: 03/05/2024 Health Maintenance Due Date Last Done Comments Adult Wellness Visit 10/23/2001 Diabetic Eye Exam 07/27/2023 07/26/2022, , 07/10/2021, Additional history exists HbA1c 12/13/2023 06/14/2023, 10/07, 06/22/2022, Additional history exists Albumin/Creatinine Ratio 06/14/2024 024, 06/22/2022, 06/19/2021, Additional history exists Depression Screening 06/14/2024 06/14/2023 Diabetic Foot Exam 06/14/2024 06/14/2023, 0 06/22/2022, 06/19/2021, Additional history exists O2 ASSESSMENT COMPLETED IN PAST YEAR FOR COPD 01/04/2025 01/05/2024 DTap/Tdap Vaccines (3 - Td or Tdap) [...] as of this encounter Visit Diagnoses Diagnosis 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 Yes, in chart and reviewed as current [...] Agen t (per Health Care Power of Manager Pathology document) [email or web address] Care Teams Homicide Detective Relationship Specialty Start Date End Date Zafar Tinajero DO [address] [place] [address] PCP - General Internal Medicine 12/27/23 documented as of this encounter
--- OUTSIDE RECORDS SUMMARY | 2024-08-10 07:26 | External Medical Summary | Summary of Care ---
Author Name Unknown Organization [facility] Address [address] [place] [address] Phone [phone] Care Team Providers Care Suppression Crew Leader Name Role Phone Zafar Tinajero DO Primary Care Provider [phone] Reason for Visit * Reason Comments Allergy Return Encounter Details Date Type Department Care Team (Late st Contact Info) Description 03/06/2024 3:30 PM EDT Office Visit Allergy/Immunology [facility] [address] [place] [address] Dameon Vasquez MD [address] [place] [address] Nasal polyp*; Nasal congestion; Smell and taste disorder; Nonallergic rhinitis Allergies Active Allergy Reactions Criticality Noted Date Comments Codeine Sulfate High 08/05/2010 Throat swelling Oxycodone-Acetaminophen 08/22/2023 documented as of this encounter (statuses as of 03/06/2024) Medications Medication Sig Dispensed Refills Start Date [...] as of this encounter (statuses as of 03/06/2024) Active Problems Problem Noted Date Diagnosed Date [...] Comments) Remote Patient Monitoring Vendor[place] [facility] [place]s): Connected Scale Self - Management Plan [...] Continue injections Coronary artery disease invo lving mi'kmaq coronary artery of mi'kmaq heart without angina pectoris 05/10/2018 Last Assessment [...] as of this encounter (statuses as of 03/06/2024) Resolved Problems Problem Noted Date Diagnosed Date [...] externa, chronic 08/24/201207/08 Resolute Integrity Clinical Trial [id number] 05/18/2012 05/16/2013 Overview: Renamed per the Centers for Medicare and Medicaid billing requirements to include Clinical Trial.gov number. Resolute Integrity Clinical Trial [id number] 05/18/2012 04/01/2014 Overview: Renamed per the Centers for Medicare and Medicaid billing requirements to include Clinical Trial.gov number. [employer] Other*[id number] 04/17/2012 06/15/2016 Overview: Study Title: Genomic Markers for Patients with Cardiovascular Disease Project # [id number] Credit Authorizer: Jennifer Xiong MD [phone] HTN, GOAL BELOW 140/80 12/27/201108/13 Overview: Per [...] as of this encounter (statuses as of 03/06/2024) Immunizations Name Administration Dates Next Due COVID-19 [...] (Prevnar) 02/14/2015 Pneumococcal Conjugate Vacci ne, 20-valent ([id number]) 01/26/2024 Pneumococcal Polysaccharide PPV23 (Pneumovax) 06/16/2012 RSV [...] complication, without long-term current use of insulin ([facility]) Dyslipidemia, goal LDL below 100 Presence of drug coated stent in LAD coronary artery History of tobacco use Nasal polyps Sensorineural hearing loss, bilateral HTN, goal below 140/90 Nodule of left lung 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 without angina 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, group B, by GOLD 2017 classification ([facility]) Nonallergic rhinitis Primary open-angle glaucoma, bilateral, indeterminate stage Chronic diastolic heart failure (HCC) Hypertensive heart disease with chronic diastolic congestive heart failure (HCC) Generalized weakness Adenocarcinoma, lung, 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 DM type 2, not at goal ([facility]) Dyslipidemia, goal LDL below 100 04/17/2009 Per Lipid Taxonomy. ELEVATED PROSTATE SPECIFIC ANTIGEN 03/06/1999 Esophageal reflux 08/24/2012 Excessive cerumen in ear canal 08/24/2012 [employer] Other*[id number] 04/17/2012 Study Title: Genomic Markers for Patients with Cardiovascular Disease Project # [id number] PrincipalInvestigator: Jennifer Xiong MD [phone] GLAUCOMA NEC 08/09/1999 HTN, goal below 140/80 12/27/2011 Per HTN Protocol #27. Hx of corneal abrasion LIPOMA SKIN NEC 05/13/2003 Lung nodule Macular degeneration 04/10/2014 OD wet Eylea injections started, Dr. Yap NASAL POLYP NOS 11/22/2001 Nasal polyps 08/24/2012 Otitis externa, chronic 08/24/2012 Prediabetes 10/18/2023 Presence of drug coated stent in LAD coronary artery 04/19/2012 Resolute Integrity Clinical Trial [id number] 05/18/2012 Renamed per the Centers for Medicare and Medicaid billing requirements to include Clinical Trial.gov number. Seasonal allergies Sensorineural hearing loss, bilateral 08/24/2012 Sleep-disordered breathing 08/24/2012 Smell and taste disorder 02/07/2013 Snoring disorder 08/24/2012 Type 2 diabetes mellitus with hemoglobin A1c goal of less than 7.0% ([facility]) 03/06/2009 Per Diabetes Taxonomy. ICD-10 update of inactive term Past Surgical History: Procedure Laterality Date COLONOSCOPY W/ BIOPSY (RECTUM) 12/14/2006 Tubular adenoma polyp of colon (2) ; repeat in 5 years COLONOSCOPY, DIAGNOSTIC (RECTUM) 08/1998 Negative for polyps COLONOSCOPY, DIAGNOSTIC (RECTUM) 04/08/2015 COLONOSCOPY FLEXIBLE PROXIMAL DIAGNOSTIC performed by Peña Moss [place] [facility] [place], DIAGNOSTIC (RECTUM) N/A 02/26/2020 COLONOSCOPY FLEXIBLE PROXIMAL DIAGNOSTIC performed [place] Yovani Saldivar MD [place] [facility] [place]ONOSCOPY, REMOVE LESION 12/2003 tubular adenoma transverse colon-repeat in 3 years COLORECTAL CANCER SCREEN; COLON 01/20/2009 repeat in 5 years CORONARY ANGIOGRAPHY W/LEFT HEART CATH 04/17/2012 CORONARY ANGIOGRAPHY W/LEFT HEART CATH performed by Jennifer Xiong MD at [place] [facility] [place]STOSCOPY 02/2005 Dr. Leroy- benign, enlarged prostate EGD, FLEXIBLE, DIAGNOSTIC N/A 02/26/2020 ESOPHAGOGASTRODUODENOSCOPY (EGD), FLEXIBLE, TRANSORAL, DIAGNOSTIC performed by Yovani Saldivar MD at[place] [facility] [place] EXPLORE, TREAT ANKLE JOINT 07/2005 ORIF [...] Left 05/24/2022 # 50 Eylea OS, Dr. aYp INJECTION OF EYE DRUG Left 07/26/2022 # [...] Left 11/30/2017-11/30/2018 Eylea OS consent signed, Dr. Yap MISCELLANEOUS ORDER ([facility] ONLY) ACT 112 signed, 07/26/2018 [...] Yap, DO 1.5 mg at 01/18/24 0814 Review of patient's allergies indicates: Allergen Reactions Codeine Sulfate Throat swelling Oxycodone-Acetaminophen Family History Problem Relation Name Age of Onset Heart Disorder Mother age 86-heart dx; had had longstanding arthritis Allergies Mother History of nasal polyps Heart Disorder Sister heart surgery-valve replacement -age 70 Cancer Brother half-brother- uncertain type cancer-possibly brain tumor- in his 60's Cancer Brother ditto Diabetes Father onset age 75- age 93 [...] normal EARS: TM's - clear NOSE:Pale mucosa; no nasal polyps visualized; Septum - mild deviation to L OROPHARYNX: [...] the patient was on Dupixent during the 1st 6-7 months of 2022. He states that [...] 03/08/2024 11:00 AM EDT Office Visit Ophthalmology, [facility] [address] [facility] [place] [address] Rohith Yap, DO [address] [facility] [place] [address] 03/13/2024 1:15 PM EST Imaging Radiology [facility] [address] [facility] [place] [address] 03/22/2024 11:30 AM EST Office Visit Radiation Oncology, [address] [place] [address] Michele Goodrich MD [address] [place] [address] [place] [address] 03/23/2024 3:40 PM EST Office Visit Family Practice [address] [place] [address] [address] [facility], [place] [address] Zafar Tinajero, DO 293 [facility], [place] [address] 03/29/2024 11:40 AM EST Office Visit Otolaryngology [facility] 132 [facility] [place] [address] Mimi Jordan PA-C [address] [facility] [place] [address] 06/05/2024 2:00 PM EST Office Visit Podiatry [facility] 132 [place] [address] Jen Bourne, THOMAS 132 [place] [address] 07/03/2024 11:45 AM EST Office Visit Urology, [facility] [address] [place] [address] Josh Savage MD [address] [place] [id number] 09/04/2024 3:00 PM EDT Office Visit Allergy/Immunology [facility] [address] [place] [address] Dameon Vasquez MD 200 [facility] [place] [address] 10/15/2024 11:00 AM EDT Office Visit Cardiology, [facility] 132 [place] [address] Bakari Yu DO 132 [facility] [place] [address] 01/08/2025 2:00 PM EDT Office Visit Allergy/Immunology [facility] [address] [place] [address] Britta [place] PA-C 200 [facility] [place] [address] Health Maintenance Due Date Last Done Comments [...] Documents on File Type Date Recorded Patient Surgical Scrub Tech Expl anation POL 12/09/2022 10:36 AM POLST [...] the patient have Health Care Power of Porcelain Enamel Installer? Yes, in chart and reviewed as [...] Agen t (per Health Care Power of Porcelain Enamel Installer document) [email or web address] Care Teams Suppression Crew Leader Relationship Specialty Start Date End Date Zafar Tinajero DO [address] [place] [address] PCP - General Internal Medicine 12/27/23 documented as of this encounter
[2024-08-10] MEDS: FLUTICASONE PROPIONATE NA SPR 16 GM BTL SCH (08:16)
[2024-08-10] MEDS: FLUTICASONE/VILANTEROL 100/25MCG 14 PUFFS/INHALER INH SCH (08:16)
[2024-08-10] MEDS: amLODIPine BESYLATE 5 MG TAB PO SCH (08:18)
[2024-08-10] MEDS: FUROSEMIDE INJ 20 MG/2 ML VIAL IV SCH (08:18)
[2024-08-10] MEDS: lisinopril 10 MG TAB PO SCH (08:18)
[2024-08-10] MEDS: CEROVITE ADV FORMULA TAB PO SCH (08:18)
[2024-08-10] MEDS: ASPIRIN 81 MG ECTAB PO SCH (08:18)
[2024-08-10] MEDS: DOXYCYCLINE HYCLATE 100 MG CAP PO SCH (08:18)
[2024-08-10] MEDS: POTASSIUM CHLORIDE CRTAB 20 MEQ TABCR PO SCH ×2 (08:21→20:25)
--- NOTE | 2024-08-10 10:00 | Electrocardiogram Report ---
Test Reason : Blood Pressure : */* mmHG Vent. Rate : 94 BPM Atrial Rate : 94 BPM P-R Int : 208 ms QRS Dur : 134 ms QT Int : 382 ms P-R-T Axes : 33 -70 59 degrees QTcB Int : 477 ms Sinus rhythm with Premature atrial complexes Right bundle branch block Left anterior fascicular block Abnormal ECG When compared with ECG of 19-Feb-2016 14:02, Premature atrial complexes are now Present Left anterior fascicular block is now Present Confirmed by Star Alves ([id number]) on 08/10/2024 10:00:33 AM Referred By: Confirmed By: Star Alves
--- NOTE | 2024-08-10 10:08 | Electrocardiogram Report ---
Test Reason : Blood Pressure : */* mmHG Vent. Rate : 70 BPM Atrial Rate : 70 BPM P-R Int : 234 ms QRS Dur : 152 ms QT Int : 432 ms P-R-T Axes : 27 -49 21 degrees QTcB Int : 466 ms Sinus rhythm with 1st degree A-V block Right bundle branch block Left anterior fascicular block Abnormal ECG When compared with ECG of 09-Aug-2024 17:07, Premature atrial complexes are no longer Present Confirmed by Star Alves ([id number]) on 08/10/2024 10:07:22 AM Referred By: Zafar Tinajero Confirmed By: Star Alves
--- NOTE | 2024-08-10 11:03 | Cardiology Consultation ---
Date of Consultation August 10, 2024 Assessment & Plan (1) Acute on chronic heart failure with preserved ejection fraction (HFpEF): (2) CAP (community acquired pneumonia): (3) Hypoxia: Plan 88-year-old male presents with acute hypoxic respiratory failure secondary to community-acquired pneumonia and acute heart failure with preserved ejection fraction. Echocardiogram reveals preserved LV systolic function without significant valvular pathology. Continue furosemide 20 mg IV twice daily with potassium supplementation. Likely transition to oral diuretic therapy in the next 24 to 48 hours. Monitor fluid balance, daily weight, GFR, and electrolytes. Maintain serum potassium greater than 4.0, and serum magnesium greater than 2.0. Continue aspirin, atorvastatin, lisinopril, and amlodipine as ordered. Management of community-acquired pneumonia as per internal medicine. Thank you for allow me to participate in the care of your patient. Bakari Yu DO, [facility] History of Present Illness Reason for Consultation: Palpitations, mild heart failure Requesting Physician: Eufemia Soliman PA-C Attending Physician: Artur Wilson DO History of Present Illness 88-year-old male with history of coronary disease, LAD stenting 2011, and hypertension presents to the ER with shortness of breath. Experienced chills and possible palpitations last evening at approximately 1 AM. Symptoms lasted for more than 1 hour. Afterwards he felt extremely weak and short of breath. He came to the ER with x-ray demonstrating possible bilateral pneumonia and pulmonary vascular congestion. Denies orthopnea or PND. No recent weight gain or worsening edema. No chest discomfort or heaviness. Hypoxic on admission. Current oxygen saturation 94% on 2 L nasal cannula. Chronic lower extremity edema typically managed with compression stockings. He is not taking diuretic therapy as an outpatient. Procalcitonin elevated on admission. Allergies Allergy/AdvReac Type Severity Reaction Status Date / Time bee venom protein (honey bee) Allergy Severe THROAT Verified 08/09/24 18:49 SWELLS codeine Allergy Severe throat Verified 08/09/24 18:49 swells Home Medications Medication Instructions Recorded Confirmed Type amlodipine 5 mg tablet (Norvasc) 5 mg PO QAM 01/22/20 08/09/24 History atorvastatin 40 mg tablet (Lipitor) 40 mg PO QPM 01/22/20 08/09/24 History lisinopril 10 mg tablet 10 mg PO QAM 01/22/20 08/09/24 History vit C 250 mg-vit E 90 mg-zinc 40 1 tab PO BID 01/22/20 08/09/24 History mg-copper 1 qu-auaiyi-whvyrb capsule (PreserVision AREDS-2) aspirin 81 mg tablet,delayed 81 mg PO QAM 04/03/22 08/09/24 History release latanoprost 0.005 % eye drops 1 drp OPB HS 04/03/22 08/09/24 History aflibercept 2 mg/0.05 mL 2 mg intravitreal DIRECTED 07/30/22 08/09/24 History intravitreal syringe (Eylea) fluticasone 250 mcg-salmeterol 50 1 inh inhalation Q12H 07/30/22 08/09/24 History mcg/dose blistr powdr for inhalation (Advair Diskus) fluticasone propionate 50 2 spray intranasal QAM 08/09/24 08/09/24 History mcg/actuation nasal spray,suspension Patient History Medical History Dyslipidemia CAD (coronary artery disease) "s/p stent placement 2011" HTN (hypertension) Glaucoma Type 2 diabetes mellitus Esophageal reflux COPD (chronic obstructive pulmonary disease) Asthma Surgical History Stented coronary artery "JOSE CRUZ mid LAD 2011" History of total right hip arthroplasty H/O cataract removal with insertion of prosthetic lens "bilat" H/O sinus surgery Family History Other Coronary heart disease Social History Smoking Status: Former smoker Tobacco Type: Cigarettes Hx Alcohol Use: No Hx Substance Use: No Preferred Language: Thai Communication Ability: Impaired Communication Ability Comment: Pt is legally blind, 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 Hearing Ability: Use of Hearing Aid Air Pollution Compliance Inspector Required: No Beliefs That Will Affect Care: None Current Living Situation: Alone Other Information That Helps Us Care for You: No Feels Safe at Home: Yes Safety Concerns: Feels Safe At This Time Assistive Devices: Denture - Upper, Denture - Lower, Hearing Aid - Bilateral and Walker Review of Systems Review of Systems: All systems reviewed & are unremarkable except as noted in Subjective Physical Exam Constitutional: well nourished and + ill appearing; no acute distress Eyes: Visually impaired, legally blind Respiratory: no respiratory distress and no labored breathing Auscultation: + crackles (bases B/L); no rhonchi and no wheezes Cardiovascular: Rate/Rhythm: regular rate and regular rhythm Heart Sounds: normal S1 and normal S2; no murmur Vessels: no JVD Extremities: no edema Gastrointestinal (Abdomen): Inspection/Auscultation: abdomen normal to inspection and normal bowel sounds; abdomen not distended Percussion/Palpation: abdomen soft; abdomen nontender, no guarding and abdomen not rigid Neurologic: CN's II-XI intact bilaterally and moves all extremities; no focal motor deficits Results & Data Vital Signs (Past 12 Hours) Vital Signs Temp Pulse Pulse Resp BP Pulse Ox O2 Del Method 08/10/24 10:02 Nasal Cannula 08/10/24 08:04 36.6 C 76 18 158/73 H 94 Nasal Cannula 08/10/24 07:13 66 O2 Flow Rate 08/10/24 10:02 2 08/10/24 08:04 2 08/10/24 07:13 Laboratory Results Cardiac Enzymes 08/09/24 08/09/24 Range/Units 17:11 19:51 AST 15 (13-39) U/L Troponin I High Sens 15.0 12.8 (0-20) pg/ml B-Natriuretic Peptide 181 H (0-100) pg/ml Coagulation 08/09/24 Range/Units 17:11 PT 12.2 H (9.0-12.0) Seconds APTT 29 (21-31) Seconds B-Natriuretic Peptide 181 H (0-100) pg/ml CBC 08/09/24 08/10/24 Range/Units 17:11 05:33 WBC 9.41 5.98 (4.8-10.8) K/ul RBC 4.96 4.13 L (4.70-6.10) M/uL Hgb 14.3 11.9 L (14.0-18.0) g/dl Hct 42.2 35.4 L (42.0-52.0) % Plt Count 207 168 (130-400) K/uL Neut # (Auto) 7.76 H (1.40-6.50) K/uL Lymph # (Auto) 0.96 L (1.20-3.40) K/uL Mccurtain # (Auto) 0.59 (0.11-0.59) K/uL Eos # (Auto) 0.04 (0.00-0.50) K/uL Baso # (Auto) 0.03 (0.00-0.20) K/uL Comprehensive Metabolic Panel 08/09/24 08/10/24 Range/Units 17:11 05:33 Sodium 136 137 (136-145) mmol/L Potassium 4.2 3.8 (3.5-5.1) mmol/L Chloride 102 105 (98-107) mmol/L Carbon Dioxide 25 27 (21-32) mmol/L BUN 25 H 27 H (6-23) mg/dl Creatinine 0.84 0.73 (0.6-1.4) mg/dl Glucose 117 H 96 (70-99(Fasting)) mg/dl Calcium 9.1 8.5 L (8.6-10.3) mg/dl Direct Bilirubin 0.2 (0-0.2) mg/dl AST 15 (13-39) U/L ALT 13 (7-52) U/L Alkaline Phosphatase 100 (34-104) U/L Total Protein 7.6 (6.0-8.3) gm/dl Albumin 4.4 (3.4-5.0) gm/dl Intake and Output 08/09/24 08/10/24 08/10/24 22:59 06:59 14:59 Intake Total 50 / 150 100 / 150 Output Total 300 / 300 Balance 50 / -150 -200 / -150 Intake: IV 50 / 50 cefTRIAXone SODIUM 2,000 mg In 50 / 50 50 ml @ 100 mls/hr IV NOW STA Rx#:[id number] Oral 100 / 100 Output: Urine 300 / 300 Other: Weight 77.1 kg 77.1 kg Weight Measurement Method Standing Scale Standing Scale
--- OUTSIDE RECORDS SUMMARY | 2024-08-10 11:19 | External Medical Summary | Summary of Care ---
Author Name Unknown Organization [facility] Address [address] [place] [address] Phone [phone] Care Team Providers Care Hydraulic Jack Adjuster Name Role Phone Zafar Tinajero DO Primary Care Provider [phone] Reason for Visit * Reason Onset Date Comments Information 08/09/2024 Encounter Details Date Type Department Care Team (Late st Contact Info) Description 08/09/2024 Telephone Family Practice [address] [facility] [address] [place] [address] Zafar Tinajero DO [address] [place] [address] Information Allergies Active Allergy Reactions Criticality Noted Date Comments Codeine Sulfate High 08/05/2010 Throat swelling Oxycodone-Acetaminophen 08/22/2023 documented as of this encounter (statuses as of 08/09/2024) Medications ASPIRIN 81 MG PO CHEWIndications :INTERFACED RESULT take one tablet daily 30 Tab 11 2 Active PRESERVISION AREDS 2 PO CAPS Take 1 capsule by mouth twice daily Active Glucose Blood (ONETOUCH VERIO) STRP Test blood sugar twice times daily or as directed E11.9 200 Strip 3 06/29/202 0 Active Fluticasone-Irwin meterol 250-50 MCG/ACT Inhalation [...] as of this encounter (statuses as of 08/09/2024) Active Problems Problem Noted Date Diagnosed Date [...] in the Comments) Remote Patient Monitoring Vendor: [facility] [place] Device(s): Connected Scale Self - [...] Continue injections Coronary artery disease invo lving [place]apai-prescott coronary artery of [place] heart without angina pectoris 05/10/2018 Assessment & [...] as of this encounter (statuses as of 08/09/2024) Resolved Problems Problem Noted Date Diagnosed Date [...] externa, chronic 08/24/201207/08 Resolute Integrity Clinical Trial [id number] 05/18/2012 05/16/2013 Overview: Renamed per the Centers for Medicare and Medicaid billing requirements to include Clinical Trial.gov number. Resolute Integrity Clinical Trial [id number] 05/18/2012 04/01/2014 Overview: Renamed per the Centers for Medicare and Medicaid billing requirements to include Clinical Trial.gov number. [employer] Other*[id number] 04/17/2012 06/15/2016 Overview (04/17/2012): Study Title: Genomic Markers for Patients with Cardiovascular Disease Project # [id number] Civil Engineering Drafter: Jennifer Xiong MD [phone] HTN, GOAL BELOW 140/80 12/27/201108/13 Overview: Per [...] as of this encounter (statuses as of 08/09/2024) Immunizations Name Administration Dates Next Due COVID-19 [...] (Prevnar) 02/14/2015 Pneumococcal Conjugate Vacci ne, 20-valent ([id number]) 01/26/2024 Pneumococcal Polysaccharide PPV23 (Pneumovax) 06/16/2012 RSV [...] 10 and older)(Boostrix) 07/04/2020, Varicella Zoster Vaccine Ramírez lt (Zostavax) 05/21/2015 Zoster Vaccine Recombinant (Shingrix) 09/23/2021 ,06/19/2021 [...] Telephone Encounter - Irma Arce LPN - 08/09/2024 2:32 PM EDT Patient added to schedule today with DR Tanvi ornelas. Thank you documented in this encounter Plan of Treatment Upcoming Encounters Date Type Department Care Team (Late st Contact Info) Description 08/10/2024 8:40 AM EDT Office Visit Family Practice [address] [place] [address] [place] [address] Zafar Tinajero, DO [address] [place] [address] 09/05/2024 1:30 PM EDT Office Visit Allergy/Immunology [facility] [address] [place], [place] [address] Dameon Vasquez MD [address] [place] [address] 09/19/2024 2:30 PM EDT Imaging Radiology [facility] [address] [facility] [place] [address] [place], [place] [address] 09/25/2024 2:20 PM EDT Office Visit Family Practice [address] [place] [address] [place] [address] Zafar Tinajero, DO [address] [facility] [place] [address] 09/26/2024 10:45 AM EDT Office Visit Ophthalmology, [facility] [address] [place] [address] Rohith Yap, DO [address] [place] [address] Nurse Eric Grajeda [address] [place] [address] Photographer Kilo Grajeda [address] [place] [address] 10/15/2024 11:00 AM EDT Office Visit Cardiology, [facility] [address] [place] [address] Bakari Yu, DO [address] [place] [address] 12/04/2024 2:00 PM EDT Office Visit Podiatry [facility] [address] [place] [phone] Jen Bourne, THOMAS [address] [place] [address] 12/19/2024 2:45 PM EDT Office Visit Urology, [facility] [address] [place] [address] Josh Savage MD [address] [place] [address] Health Maintenance Due Date Last Done Comments Adult Wellness Visit 10/23/2001 HbA1c 12/27/2024 06/29/2024, 03/09, 06/14/2023, Additional history exists Diabetic Eye Exam 03/08/2025 03/08/2024, , 07/26/2022, Additional history exists Depression Screening 06/25/2025 06/25/2024 Diabetic Foot Exam 06/25/2025 06/25/2024, 0 06/14/2023, 06/22/2022, Additional history exists Albumin/Creatinine Ratio 06/29/2025 025, 03/23/2024, 06/14/2023, Additional history exists O2 ASSESSMENT COMPLETED IN PAST YEAR FOR COPD 08/09/2025 08/09/2024 DTap/Tdap Vaccines (3 - Td or Tdap) [...] Documents on File Type Date Recorded Patient Rougher For Cement Expl anation POLST 12/09/2022 10:36 AM POLST [...] the patient have Health Care Power of Sous Chef? Yes, in chart and reviewed as current [...] Agen t (per Health Care Power of Sous Chef document) [email or web address] Care Teams Hydraulic Jack Adjuster Relationship Specialty Start Date End Date Zafar Tinajero DO [address] [place] [address] PCP - General Internal Medicine 12/27/23 documented as of this encounter
--- OUTSIDE RECORDS SUMMARY | 2024-08-10 11:20 | External Medical Summary | Summary of Care ---
Author Name Unknown Organization [facility] Address [address] [place] [address] Phone [phone] Care Team Providers Care Utility Clerk Name Role Phone Zafar Tinajero DO Primary Care Provider [phone] Reason for Visit * Reason Comments Outpatient Testing Encounter Details Date Type Department Care Team (Late st Contact Info) Description 08/09/2024 2:30 PM EDT Laboratory Laboratory, [facility] [address] [facility] [place] [phone] [facility] [address] [place] [address] Controlled type 2 diabetes mellitus without complication, without long-term current use of insulin ([facility]); Generalized weakness; Tremor Allergies Active Allergy Reactions Criticality Noted Date [...] in the Comments) Remote Patient Monitoring Vendor: [facility] [place] Device(s): Connected Scale Self - Management Plan [...] Continue injections Coronary artery disease invo lving [place] coronary artery of [place] heart without angina pectoris 05/10/2018 Assessment & [...] externa, chronic 08/24/201207/08 Resolute Integrity Clinical Trial [id number] 05/18/2012 05/16/2013 Overview: Renamed per the Centers for Medicare and Medicaid billing requirements to include Clinical Trial.gov number. Resolute Integrity Clinical Trial [id number] 05/18/2012 04/01/2014 Overview: Renamed per the Centers for Medicare and Medicaid billing requirements to include Clinical Trial.gov number. [employer] Other*[id number] 04/17/2012 06/15/2016 Overview (04/17/2012): Study Title: Genomic Markers for Patients with Cardiovascular Disease Project # [id number] Manager Oracle: Jennifer Xiong MD [phone] HTN, GOAL BELOW 140/80 12/27/201108/13 Overview: Per [...] (Prevnar) 02/14/2015 Pneumococcal Conjugate Vacci ne, 20-valent ([id number]) 01/26/2024 Pneumococcal Polysaccharide PPV23 (Pneumovax) 06/16/2012 RSV [...] AM EDT Office Visit Family Practice 65 [facility] 293 [facility] [place] [address] Zafar Tinajero, 293 [facility] [place] [address] 09/05/2024 1:30 PM EDT Office Visit Allergy/Immunology [facility] [place] [address] [place] [address] Dameon Vasquez MD [address] [place] [address] 09/19/2024 2:30 PM EDT Imaging Radiology [facility] 1st [facility], [place] [address] [place] [phone] 09/25/2024 2:20 PM EDT Office Visit Family Practice [address], [place] 293 [facility] [place] [address] Zafar Tinajero, DO 293 [facility] [place] [address] 09/26/2024 10:45 AM EDT Office Visit Ophthalmology, [facility] [address] [place] [phone] Rohith Yap, DO [address] [place] [address] Nurse Eric Grajeda [address] [place] [address] Photographer Kilo Grajeda [address] [place], [place] [address] 10/15/2024 11:00 AM EDT Office Visit Cardiology, [facility] [address] [place] [phone] Bakari Yu, DO [address] [place] [address] 12/04/2024 2:00 PM EDT Office Visit Podiatry [facility] [address] [place] [phone] Jen Bourne DPM [address] [place] [address] 12/19/2024 2:45 PM EDT Office Visit Urology, [facility] [address] [place] [address] Josh Savage MD [address] [place] [address] Pending Results Name Type Priority Associated Diagnoses Date /Time HEMOGLOBIN A1C Lab Routine Controlled type 2 diabetes mellitus without complication, without long-term current use of insulin (HCC) 08/09/2024 2:21 PM EDT TSH WITH FREE T4 IF INDICATED Lab Routine Tremor 08/09/2024 2:21 PM EDT Health Maintenance Due Date Last Done Comments [...] Procedure Name Priority Date/Time Associated Diagnosis Comments URINALYSIS, REFLEX TO CULTURE STAT 08/09/2024 2:21 PM EDT Generalized weakness URINALYSIS, REFLEX TO CULTURE (CUP ONLY) STAT 08/09/2024 2:21 PM EDT Generalized weakness URINALYSIS, REFLEX TO CULTURE (NOT FOR NEUTROPENIC PATIENTS) STAT 08/09/2024 2:21 PM EDT Generalized weakness COMPREHENSIVE METABOLIC PANEL STAT 08/09/2024 2:21 PM EDT Generalized weakness Tremor CBC STAT 08/09/2024 2:21 PM EDT Generalized weakness documented in this encounter Results * (ABNORMAL) URINALYSIS, REFLEX TO CULTURE (08/09/2024 2:21 PM EDT) Color, Urine Yellow Light Yellow, Yellow, Dark Yellow 08/09/2024 3:22 PM EDT LABORATORY [place] 57-10 Clarity, Urine Clear Clear 08/09/2024 3:22 PM EDT LAB[facility]ATORY [place] 57-10 Glucose, Urine Negative Negative mg/dL 08/09/2024 3:22 PM EDT LABORATORY [place] 57-10 Bilirubin, Urine Negative Negative 08/09/2024 3:22 PM EDT LABORATORY [place] 57-10 Ketone, Urine Trace(A) Negative mg/dL 08/09/2024 3:22 PM EDT LAB[facility]ATORY [place] 57-10 Specific [place], Urine 1.015 1.003 - 1.030 08/09/2024 3:22 PM EDT LAB[facility]ATORY [place] 57-10 Blood, Urine Trace(A) Negative 08/09/2024 3:22 PM EDT LABORATORY [place] 57-10 pH, Urine 5.5 5.0 - 7.5 Units 08/09/2024 3:22 PM EDT LAB[facility]ATORY [place] 57-10 Protein, Urine 30(A) Negative mg/dL 08/09/2024 3:22 PM EDT [facility] [place] [facility] 57-10 Urobilinogen, Urine 1.0 0.2, 1.0 mg/dL 08/09/2024 3:22 PM EDT [facility] [place] [facility] 57-10 Nitrite, Urine Negative Negative 08/09/2024 3:22 PM EDT LABORATORY [place] 57-10 Esterase, Urine Negative Negative 08/09/2024 3:22 PM EDT [facility] RBC, Urine 0-2 0 - 2 /HPF 08/09/2024 3:22 PM EDT LAB[facility] [place] 57-10 WBC, Urine 0-2 0 - 2 /HPF 08/09/2024 3:22 PM EDT [facility] [place] [facility] 57-10 Bacteria, Urine 0-25 0 - 25 /HPF 08/09/2024 3:22 PM EDT [facility] [place] [facility] 57-10 Culture, Urine 08/09/2024 3:22 PM EDT LAB[facility]ATORY [place] 57-10 Comment:Culture not indicate d by urinalysis results Urine Urine specimen obtained by clean catch procedure / Unknown Non-blood Collection / Unknown 08/09/2024 2:21 PM EDT 08/09/2024 2:21 PM EDT us Zafar Tinajero DO LAB URINE ORDERABLES Final Res ult [facility] [place] [facility] [address] [facility] [address] * URINALYSIS, REFLEX TO CULTURE (CUP ONLY) (08/09/2024 2:21 PM EDT) Urinalysis, Reflex to Culture Specimen Specimen collected and received 08/09/2024 3:26 PM EDT LAB[facility] [place] 57-10 Urine Urine specimen obtained by clean catch procedure / Unknown Non-blood Collection / Unknown 08/09/2024 2:21 PM EDT 08/09/2024 2:21 PM EDT us Zafar Tinajero DO LAB URINE ORDERABLES Final Res ult LAB[facility]ATORY [place] [address] [address] [facility] [address] * (ABNORMAL) COMPREHENSIVE METABOLIC PANEL (08/09/2024 2:21 PM EDT) BUN 23(H) 6 - 20 mg/dL 08/09/2024 3:14 PM EDT [facility] [place] [facility] CREATININE 0.8 0.6 - 1.2 mg/dL 08/09/2024 3:14 PM EDT LAB[facility]ORY [place] 5710 EGFR 84 >=60 mL/min 08/09/2024 3:14 PM EDT LAB[facility]ORY [place] 5710 Comment:eGFR is calculated b ased on the CKD-EPI 2020 equation. SODIUM 136 135 - 146 mmol/L 08/09/2024 3:14 PM EDT LABORATORY [place] 57-10 POTASSIUM 4.4 3.5 - 5.1 mmol/L 08/09/2024 3:14 PM EDT LAB[facility]ATORY [place] 57-10 CHLORIDE 101 98 - 107 mmol/L 08/09/2024 3:14 PM EDT LAB[facility]ORY [place] 57-10 CO2 23 22 - 32 mmol/L 08/09/2024 3:14 PM EDT LAB[facility]ORY [place] 57-10 ANION GAP 12 7 - 15 mmol/L 08/09/2024 3:14 PM EDT LAB[facility]ORY [place] 57-10 GLUCOSE 141(H) 70 - 120 mg/dL 08/09/2024 3:14 PM EDT LAB[facility]ORY [place] 57-10 Albumin 4.0 3.8 - 5.0 g/dL 08/09/2024 3:14 PM EDT LAB[facility] [place] 57-10 AST 16 10 - 50 U/L 08/09/2024 3:14 PM EDT LAB[facility]ATORY [place] 57-10 Alkaline Phosphatase 110 35 - 130 U/L 08/09/2024 3:14 PM EDT LAB[facility]ORY [place] 57-10 Bilirubin, Total 1.1 <=1.2 mg/dL 08/09/2024 3:14 PM EDT LAB[facility]ORY [place] 57-10 CALCIUM 8.5 8.4 - 10.2 mg/dL 08/09/2024 3:14 PM EDT LAB[facility] [place] 57-10 Protein 6.4 6.0 - 8.3 g/dL 08/09/2024 3:14 PM EDT LAB[facility]ORY [place] 57-10 ALT 13 10 - 50 U/L 08/09/2024 3:14 PM EDT LAB[facility] [place] 57-10 Blood Venous blood specimen / Unknown Venipuncture / Unknown 08/09/2024 2:21 PM EDT 08/09/2024 2:21 PM EDT Zafar Tinajero DO LAB BLOOD ORDERABLES Final Res ult LABORATORY [place] 57-10 [address] [place] [address] * (ABNORMAL) CBC (08/09/2024 2:21 PM EDT) WBC 8.59 4.00 - 10.80 K/uL 08/09/2024 2:39 PM EDT LAB[facility]ORY [place] 57-10 RBC 4.80 4.50 - 5.25 M/uL 08/09/2024 2:39 PM EDT LAB[facility]ORY [place] 57-10 HGB 13.9(L) 14.0 - 16.8 g/dL 08/09/2024 2:39 PM EDT LAB[facility]ORY [place] 57-10 HCT 42.4 40.0 - 48.4 % 08/09/2024 2:39 PM EDT LAB[facility]ORY [place] 57-10 MCV 88.3 82.0 - 99.5 fL 08/09/2024 2:39 PM EDT LAB[facility]ORY [place] 57-10 MCH 29.0 27.0 - 34.0 pg 08/09/2024 2:39 PM EDT LABORATORY [place] 57-10 MCHC 32.8 32.0 - 36.0 g/dL 08/09/2024 2:39 PM EDT LAB[facility]ORY [facility] [place] 57-10 RDW 14.2 11.5 - 15.5 % 08/09/2024 2:39 PM EDT LABORATORY [place] 57-10 PLT 196 140 - 400 K/uL 08/09/2024 2:39 PM EDT LAB[facility]ATORY [place] 57-10 MPV 9.0 6.6 - 11.1 fL 08/09/2024 2:39 PM EDT LAB[facility]ORY [place] 57-10 Blood Venous blood specimen / Unknown Venipuncture / Unknown 08/09/2024 2:21 PM EDT 08/09/2024 2:21 PM EDT Zafar Tinajero DO LAB BLOOD ORDERABLES Final Res ult [facility] [place] 57-10 [address] [place] [address] documented in this encounter Visit Diagnoses Diagnosis Generalized weakness- Primary Other malaise and fatigue Chronic diastolic heart failure (HCC) Chronic diastolic heart failure Coronary artery disease involving [place] coronary artery of [place] heart without angina pectoris Hypertensive heart disease [...] diastolic heart failure Coronary artery disease involving [place] coronary artery of [place] heart without angina pectoris Hypertensive heart disease [...] without long-term current use of insulin (HCC) Generalized weakness Other malaise and fatigue Tremor Abnormal involuntary movements documented in this encounter Advance Directives Documents on File Type Date Recorded 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 Yes, in chart and reviewed as [...] Agen t (per Health Care Power of Investigations Manager document) [email or web address] Care Teams Utility Clerk Relationship Specialty Start Date End Date Zafar Tinajero DO [address] [place] [address] PCP - General Internal Medicine 12/27/23 documented as of this encounter
--- OUTSIDE RECORDS SUMMARY | 2024-08-10 11:20 | External Medical Summary | Summary of Care ---
Author Name Unknown Organization [facility] Address [address] [place] [address] Phone [phone] Care Team Providers Care Crnp Name Role Phone Zafar Tinajero DO Primary Care Provider [phone] Reason for Visit * Reason Onset Date Comments Other 08/09/2024 Encounter Details Date Type Department Care Team (Late st Contact Info) Description 08/09/2024 Telephone Family Practice 65 [facility] [address] [place] [address] Zafar Tinajero DO 293 [place] [address] Other Allergies Active Allergy Reactions Criticality Noted Date [...] Destiny Therapy: No beta-destiny secondary to unknown ORSA Inhibitor/ARB Therapy: Lisinopril Diuretic therapy: No diuretic secondary to no longer needed SGLT2 Inhibitor: No Current SGLT2 (Describe in the Comments) Remote Patient Monitoring Vendor: [facility] [place] Device(s): Connected Scale Self - Management Plan [...] Continue injections Coronary artery disease invo lving [place] coronary artery of [place] heart without angina pectoris 05/10/2018 Assessment & [...] externa, chronic 08/24/201207/08 Resolute Integrity Clinical Trial [id number] 05/18/2012 05/16/2013 Overview: Renamed per the Centers for Medicare and Medicaid billing requirements to include Clinical Trial.gov number. Resolute Integrity Clinical Trial [id number] 05/18/2012 04/01/2014 Overview: Renamed per the Centers for Medicare and Medicaid billing requirements to include Clinical Trial.gov number. [employer] Other*[id number] 04/17/2012 06/15/2016 Overview (04/17/2012): Study Title: Genomic Markers for Patients with Cardiovascular Disease Project # [id number] Floor Care Technician: Jennifer Xiong MD [phone] HTN, GOAL BELOW 140/80 12/27/201108/13 Overview: Per [...] (Prevnar) 02/14/2015 Pneumococcal Conjugate Vacci ne, 20-valent ([id number]) 01/26/2024 Pneumococcal Polysaccharide PPV23 (Pneumovax) 06/16/2012 RSV [...] encounter Miscellaneous Notes * Telephone Encounter - Zafar Tinajero DO - 08/09/2024 1:35 PM EDT Orders signed. * Telephone Encounter - Irma Arce LPN - 08/09/2024 1:23 PM EDT Patient is weak today, states "he had a heart issue last night" Vaibhav said last night when he turned off TV he had tremors in both arms and trunk, he had chills. Nosob or chest pain Lasted about 3 hours. Today is fatigued. Scheduled for tomorrow, will go to [facility] today for labs/imaging. Thank you * Telephone Encounter - Zafar Tinajero DO - 08/09/2024 10:56 AM EDT Schedule visit. * Telephone Encounter - Irma Arce LPN - 08/09/2024 10:52 AM EDT Called, left message for patient to return call. Thank you * Telephone Encounter - Ade Chong, [place] - 08/09/2024 10:26 AM EDT Patient stated from midnight to 3am he was having on and off tremors in his arms and chest. Currently not happening but he does feel weak. No neurological deficits, A&Ox4 on phone. Patient stateshe has not had chest pain or palpitations. He denies SOB. Patient states he has not checked his blood sugar in "years", so he does not know if he was hypoglycemic at the time. Patient wondering if heneeds to be seen or contact any other specialty. Please advise * Telephone Encounter - Félix Lau MED ASSIST - 08/09/2024 10:12 AM EDT Patient called in stating patient had some "heart issues last night, shaking and heart beatingfast". Would like advice on what to do. documented in this encounter Plan of Treatment Upcoming Encounters Date Type Department Care Team (Late st Contact Info) Description 08/10/2024 8:40 AM EDT Office Visit Family Practice [address] [place] [address] [place] [address] Zafar Tinajero DO 293 [place] [address] 09/05/2024 1:30 PM EDT Office Visit [facility] [address] [place], [place] [address] Dameon Vasquez MD [address] [place], [place] [address] 09/19/2024 2:30 PM EDT Imaging Radiology [facility] 1st [facility], [place] [address] [place] [phone] 09/25/2024 2:20 PM EDT Office Visit Family Practice [address] [place] [address] [place] [address] Zafar Tinajero, DO 293 [place] [address] 09/26/2024 10:45 AM EDT Office Visit Ophthalmology, [facility] [address] [place] [address] Rohith Yap, DO [address] [place] [address] Nurse Eric Grajeda [address] [place] [address] Photographer Kilo Grajeda [address] [place], [place] [address] 10/15/2024 11:00 AM EDT Office Visit Cardiology, [facility] [address] [place] [address] Bakari Yu, DO [address] [place] [address] 12/04/2024 2:00 PM EDT Office Visit Podiatry [facility] [address] [place] [address] Jen Bourne DPM [address] [place] [address] 12/19/2024 2:45 PM EDT Office Visit Urology, [facility] [address] [place] [address] Josh Savage MD [address] [place] [address] Pending Results Name Type Priority Associated Diagnoses Date /Time TSH WITH FREE T4 IF INDICATED Lab Routine Tremor 08/09/2024 2:21 PM EDT Scheduled Orders Name Type Priority Associated Diagnoses Orde r Schedule TSH WITH FREE T4 IF INDICATED Lab Routine Tremor Expected: 08/09/2024 (Approximate), Expires: 08/09/2025 Health Maintenance Due Date Last Done Comments [...] Not on filedocumented as of this encounter Results * (ABNORMAL) COMPREHENSIVE METABOLIC PANEL (08/09/2024 2:21 PM EDT) BUN 23(H) 6 - 20 mg/dL 08/09/2024 3:14 PM EDT LABORATORY [place] 57-10 CREATININE 0.8 0.6 - 1.2 mg/dL 08/09/2024 3:14 PM EDT LAB[facility]ATORY [place] 57-10 EGFR 84 >=60 mL/min 08/09/2024 3:14 PM EDT LAB[facility]ORY [place] 57-10 Comment:eGFR is calculated b ased on the CKD-EPI 2020 equation. SODIUM 136 135 - 146 mmol/L 08/09/2024 3:14 PM EDT LABORATORY [place] 57-10 POTASSIUM 4.4 3.5 - 5.1 mmol/L 08/09/2024 3:14 PM EDT LAB[facility]ORY [place] 57-10 CHLORIDE 101 98 - 107 mmol/L 08/09/2024 3:14 PM EDT LAB[facility]ORY [place] 57-10 CO2 23 22 - 32 mmol/L 08/09/2024 3:14 PM EDT LAB[facility]ATORY [place] 57-10 ANION GAP 12 7 - 15 mmol/L 08/09/2024 3:14 PM EDT LAB[facility]ATORY [place] 57-10 GLUCOSE 141(H) 70 - 120 mg/dL 08/09/2024 3:14 PM EDT LAB[facility]ORY [place] 57-10 Albumin 4.0 3.8 - 5.0 g/dL 08/09/2024 3:14 PM EDT LAB[facility]ORY [place] 57-10 AST 16 10 - 50 U/L 08/09/2024 3:14 PM EDT LABORATORY [place] 57-10 Alkaline Phosphatase 110 35 - 130 U/L 08/09/2024 3:14 PM EDT LAB[facility]ORY [facility] 57-10 Bilirubin, Total 1.1 <=1.2 mg/dL 08/09/2024 3:14 PM EDT LAB[facility]ORY [place] 57-10 CALCIUM 8.5 8.4 - 10.2 mg/dL 08/09/2024 3:14 PM EDT LABORATORY [place] 57-10 Protein 6.4 6.0 - 8.3 g/dL 08/09/2024 3:14 PM EDT LAB[facility]ORY [facility] 57-10 ALT 13 10 - 50 U/L 08/09/2024 3:14 PM EDT [facility] 57-10 Blood Venous blood specimen / Unknown Venipuncture / Unknown 08/09/2024 2:21 PM EDT 08/09/2024 2:21 PM EDT us Zafar Tinajero DO LAB BLOOD ORDERABLES Final Res ult LABORATORY [place] 57-[address] [place] [address] * (ABNORMAL) CBC (08/09/2024 2:21 PM EDT) WBC 8.59 4.00 - 10.80 K/uL 08/09/2024 2:39 PM EDT LABORATORY [place] 57-10 RBC 4.80 4.50 - 5.25 M/uL 08/09/2024 2:39 PM EDT LAB[facility]ORY [place] 57-10 HGB 13.9(L) 14.0 - 16.8 g/dL 08/09/2024 2:39 PM EDT LAB[facility]ORY [facility] 57-10 HCT 42.4 40.0 - 48.4 % 08/09/2024 2:39 PM EDT LABORATORY [facility] [place] 57-10 MCV 88.3 82.0 - 99.5 fL 08/09/2024 2:39 PM EDT LABORATORY [facility] [place] 57-10 MCH 29.0 27.0 - 34.0 pg 08/09/2024 2:39 PM EDT LABORATORY [facility] [place] 57-10 MCHC 32.8 32.0 - 36.0 g/dL 08/09/2024 2:39 PM EDT LABORATORY [facility] [place] 57-10 RDW 14.2 11.5 - 15.5 % 08/09/2024 2:39 PM EDT [facility] PLT 196 140 - 400 K/uL 08/09/2024 2:39 PM EDT [facility]10 MPV 9.0 6.6 - 11.1 fL 08/09/2024 2:39 PM EDT [facility]10 Blood Venous blood specimen / Unknown Venipuncture / Unknown 08/09/2024 2:21 PM EDT 08/09/2024 2:21 PM EDT us Zafar Tinajero DO LAB BLOOD ORDERABLES Final Res ult LABORATORY [facility] [place] [email or web address] [place] [address] * XR CHEST 2 VIEWS (08/09/2024 2:15 PM EDT) Anatomical Region Laterality Modality Chest Computed Radiogr aphy 08/09/2024 2:21 PM EDT Impressions 08/09/2024 2:19 PM EDT IMPRESSION Patchy opacification of both lung bases, left greater than right. This is nonspecific but is concerning for pneumonia in this patient with reported weakness and fatigue. Narrative 08/09/2024 2:19 PM EDT EXAM XR CHEST 2 VIEWS- 08/09/2024 2:15 pm HISTORY Provided clinical history: "fatigue, weakness" TECHNIQUE PA and lateral upright views of the chest were obtained. COMPARISON Chest radiograph dated October 13, [address] scan dated March 13, 2024. FINDINGS No visible internal lines or tubes. The cardiomediastinal silhouette is normal in size and contour. Patchy opacification of both lung bases, left greater than right. There is also a bandlike opacity in the left mid-lung that appears consistent with atelectasis or scarring. No appreciable pneumothorax or pleural effusion. Multilevel intervertebral disc degeneration in the visualized spine. Procedure Note Miguel Ángel Thompson MD - 08/09/2024 EXAM XR CHEST 2 VIEWS- 08/09/2024 2:15 pm HISTORY Provided clinical history: "fatigue, weakness" TECHNIQUE PA and lateral upright views of the chest were obtained. COMPARISON Chest radiograph dated October 13, [address] scan dated March 13, 2024. FINDINGS No visible internal lines or tubes. The cardiomediastinal silhouette is normal in size and contour. Patchyopacification of both lung bases, left greater than right. There is alsoa bandlike opacity in the left mid-lung that appears consistent withatelectasis or scarring. No appreciable pneumothorax or pleural effusion.Multilevel intervertebral disc degeneration in the visualized spine. IMPRESSION IMPRESSION Patchy opacification of both lung bases, left greater than right. This isnonspecific but is concerning for pneumonia in this patient with reportedweakness and fatigue. Zafar Tinajero DO RADIOLOGY (RAD GENERAL) Final Result documented in this encounter Visit Diagnoses Diagnosis Generalized weakness- Primary Other malaise and fatigue Chronic diastolic heart failure (HCC) Chronic diastolic heart failure Coronary artery disease involving [place] coronary artery of [place] heart without angina pectoris Hypertensive heart disease [...] diastolic heart failure Coronary artery disease involving [place] coronary artery of [place] heart without angina pectoris Hypertensive heart disease [...] Advanced care planning/counseling discussion Other specified counseling Generalized weakness- Primary Other malaise and fatigue Tremor Abnormal involuntary movements Generalized weakness Other malaise and fatigue Tremor Abnormal involuntary movements documented in this encounter Advance Directives Documents on File Type Date Recorded 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 Yes, in chart and reviewed as current [...] Agen t (per Health Care Power of Software Development Specialist document) [email or web address] Care Teams Crnp Relationship Specialty Start Date End Date Zafar Tinajero DO [address] [place] [address] PCP - General Internal Medicine 12/27/23 documented as of this encounter
--- NOTE | 2024-08-10 13:27 | Hospitalist Progress Note ---
Date of Service August 10, 2024 Assessment & Plan (1) Acute hypoxic respiratory failure: (2) CAP (community acquired pneumonia): (3) Acute on chronic heart failure with preserved ejection fraction (HFpEF): (4) CAD (coronary artery disease): (5) Type 2 diabetes mellitus: (6) COPD (chronic obstructive pulmonary disease): (7) Primary lung adenocarcinoma: Plan Patient 88-year-old gentleman with acute hep respiratory failure most likely due to combination of community-acquired pneumonia and decompensated heart failure preserved ejection fraction. Continue IV diuresis through today Transition to oral antibiotics Monitor laboratory studies Titrate oxygen to off as able Therapies Admission and Anticipated Discharge Date Admission Date: August 09, 2024 Subjective Patient states that his breathing is improved compared to yesterday Physical Exam Physical Exam: Constitutional: Alert, nontoxic HEENT: Mucous membranes moist. Lungs: Decreased breath sounds, no wheezes, few crackles at bases CV: S1-S2, regular Abdomen: Soft, nontender, nondistended Extremities: No significant edema Neuro: No focal deficits Psych: Cooperative, normal mood Results & Data Results & Data Vital Signs (Past 12 Hours) Vital Signs Temp Pulse Pulse Resp BP Pulse Ox Pulse Ox 08/10/24 11:49 36.6 C 75 18 111/62 93 08/10/24 11:34 93 08/10/24 10:02 08/10/24 08:04 36.6 C 76 18 158/73 H 94 08/10/24 07:13 66 Pulse Ox Pulse Ox O2 Del Method O2 Flow Rate O2 Flow Rate O2 Flow Rate O2 Flow Rate 08/10/24 11:49 Nasal Cannula 2 08/10/24 11:34 93 91 0 0 0 08/10/24 10:02 Nasal Cannula 2 08/10/24 08:04 Nasal Cannula 2 08/10/24 07:13 Diagnostic Findings Reviewed imaging, laboratory and diagnostic studies. Pertinent findings as below. Respiratory viral panel negative Echocardiogram shows normal ejection fraction, no pulmonary pretension WBCs 5.9
[2024-08-10] MEDS ORDERED: cefTRIAXone SODIUM 2,000 MG/50 ML BAG IV SCH (20:00)
[2024-08-10] MEDS: CEFDINIR 300 MG CAP PO SCH (20:25)
[2024-08-10] MEDS: MELATONIN 3 MG TAB PO PRN (20:25)
[2024-08-11 06:53] LABS: Calcium 8.8 mg/dl (8.6-10.3); Potassium 4.4 mmol/L (3.5-5.1)
--- NOTE | 2024-08-11 12:07 | Cardiology Progress Note ---
Date of Service August 11, 2024 Assessment & Plan (1) Acute on chronic heart failure with preserved ejection fraction (HFpEF): (2) CAP (community acquired pneumonia): (3) Acute hypoxic respiratory failure: Plan 88-year-old male presents with acute hypoxic respiratory failure secondary to community-acquired pneumonia and acute heart failure with preserved ejection fraction. Echocardiogram reveals preserved LV systolic function without significant valvular pathology. - responded well to IV diuresis, weight down, appears euvolemic on exam - transition to furosemide PO 20 mg daily - 2 gm sodium restriction and 2 L fluid restriction - continue to monitor on telemetry - continue amlodipine, aspirin, atorvastatin, lisinopril - follow up with outpatient cardiology Case discussed with attending physician, further recommendations per Dr. Posey. I spent a total of 20 minutes on the date of service in preparation, delivery, and documentation of the care provided to this patient excluding any time spent in the performance of separately billed services. This visit was a split-shared visit with the substantial portion of the decision making performed by the supervising wall steamer/billing provider. Admission and Anticipated Discharge Date Admission Date: August 09, 2024 Supervising Physician Co-Signing Physician Notes I spent a total of 25 months, 1 protected minutes on the date of service in preparation, delivery, and documentation of the care provided to this patient, excluding any time spent in the performance of separately billed services. I have personally performed a history and physical examination on the patient. I have reviewed the advance practitioner's documentation, and I agree with, and take responsibility for the plan of care. Subjective 88-year-old male who is seen today in cardiology follow-up. Feels better than yesterday. Denies chest pain, palpitations, shortness of breath. Notes he has not been out of bed and is worried about his generalized weakness. Weight is down, continues to have good urine output. Review of Systems Review of Systems: CONSTITUTIONAL: No change in weight, No weakness, No fatigue and No fevers, No sweats or chills. PULMONARY: No cough, sputum, or hemoptysis, No wheezing, No shortness of breath and No recent change in breathing. CARDIOVASCULAR: No chest pain, No dyspnea on exertion, No edema, No palpitations and No syncope. GASTROINTESTINAL: No abdominal pain, No change in bowel habits, No significant heartburn, No nausea, No vomiting, No diarrhea, No constipation, No blood in stools or black tarry stools. No dysphagia. HEMATOLOGIC: No abnormal bleeding and No bruising. NEUROLOGICAL: Normal balance, No headaches and No weakness. Physical Exam Physical Exam: General: No acute distress. A+Ox3. HEENT: Normocephalic. Atraumatic. PERRL. EOMI. Conjunctiva and sclera clear. NECK: No carotid bruits. No JVD. Carotid upstrokes are brisk. Heart: RRR. S1 and S2 noted. No murmur. No rubs or gallops. PMI non displaced. Lungs: Clear to auscultation. No wheezes. No rhonchi. No rales. Abdomen: Normal bowel sounds. Soft. Nontender. No masses or organomegaly. No abdominal bruits. Extremities: No edema. No clubbing or cyanosis. Pulses: radial=2/4, posterior tibial=2/4, dorsalis pedis = 2/4. NEURO: No focal deficits. PSYCH: Appropriate affect and insight. Results & Data Vital Signs (Past 12 Hours) Vital Signs Temp Pulse Pulse Resp BP BP Pulse Ox 08/11/24 11:16 36.6 C 83 16 126/72 92 08/11/24 09:53 08/11/24 08:06 36.6 C 79 19 120/73 98 08/11/24 07:03 60 08/11/24 03:49 36.5 C 74 18 144/74 H 93 O2 Del Method O2 Flow Rate 08/11/24 11:16 Room Air 08/11/24 09:53 Nasal Cannula 2 08/11/24 08:06 Nasal Cannula 2 08/11/24 07:03 08/11/24 03:49 Nasal Cannula 2 Laboratory Results Comprehensive Metabolic Panel 08/11/24 Range/Units 05:43 Sodium 137 (136-145) mmol/L Potassium 4.4 (3.5-5.1) mmol/L Chloride 103 (98-107) mmol/L Carbon Dioxide 28 (21-32) mmol/L BUN 32 H (6-23) mg/dl Creatinine 0.78 (0.6-1.4) mg/dl Glucose 98 (70-99(Fasting)) mg/dl Calcium 8.8 (8.6-10.3) mg/dl Intake and Output 08/10/24 08/11/2408/11/25 22:59 06:59 14:59 Intake Total 150 / 150 Output Total 750 / 1175 425 / 1175 Balance -750 / -1025 -275 / -1025 Intake: Oral 150 / 150 Output: Urine 750 / 1175 425 / 1175 Other: Weight 73.1 kg Weight Measurement Method Standing Scale (2) CAP (community acquired pneumonia) Laterality: unspecified laterality Qualified Code(s): J18.9 - Pneumonia, unspecified organism
--- NOTE | 2024-08-11 12:28 | Hospitalist Progress Note ---
Date of Service August 11, 2024 Assessment & Plan (1) Acute hypoxic respiratory failure: (2) CAP (community acquired pneumonia): (3) Acute on chronic heart failure with preserved ejection fraction (HFpEF): (4) Primary lung adenocarcinoma: (5) Type 2 diabetes mellitus: (6) COPD (chronic obstructive pulmonary disease): (7) CAD (coronary artery disease): Plan Patient with acute hypoxic respiratory failure due to commune acquired pneumonia and decompensated heart failure. Patient has significantly improved Well at bedside oxygen was removed, patient maintained O2 sats 92 to 95%. Transition to oral Lasix Reviewed cardiology recommendations Continue oral antibiotics Encouraged activity with instructions to patient to plan on being discharged tomorrow. Attempted to contact via phone, no answer Admission and Anticipated Discharge Date Admission Date: August 09, 2024 Subjective Patient feels better but hesitant about going home. States he is weak and difficult to get around Physical Exam Physical Exam: Constitutional: Alert, nontoxic HEENT: Mucous membranes moist. Lungs: Decreased breath sounds, no wheezes, rales improved CV: S1-S2, regular Abdomen: Soft, nontender, nondistended Extremities: No significant edema Neuro: No focal deficits Psych: Cooperative, normal mood Results & Data Results & Data Vital Signs (Past 12 Hours) Vital Signs Temp Pulse Pulse Resp BP BP Pulse Ox 08/11/24 11:16 36.6 C 83 16 126/72 92 08/11/24 09:53 08/11/24 08:06 36.6 C 79 19 120/73 98 08/11/24 07:03 60 08/11/24 03:49 36.5 C 74 18 144/74 H 93 O2 Del Method O2 Flow Rate 08/11/24 11:16 Room Air 08/11/24 09:53 Nasal Cannula 2 08/11/24 08:06 Nasal Cannula 2 08/11/24 07:03 08/11/24 03:49 Nasal Cannula 2 Diagnostic Findings Reviewed imaging, laboratory and diagnostic studies. Pertinent findings as below. BMP reviewed, stable (2) CAP (community acquired pneumonia) Laterality: unspecified laterality Qualified Code(s): J18.9 - Pneumonia, unspecified organism
[2024-08-11 16:37] VITALS: RESP 18
[2024-08-12] MEDS: FUROSEMIDE 20 MG TAB PO SCH (09:18)
--- NOTE | 2024-08-12 10:32 | Discharge Summary ---
Discharge Summary Date of Service August 12, 2024 Principal Dx & Hospital Course #1 = Principal Diagnosis (1) Acute hypoxic respiratory failure: (2) CAP (community acquired pneumonia): (3) Acute on chronic heart failure with preserved ejection fraction (HFpEF): (4) Primary lung adenocarcinoma: (5) Type 2 diabetes mellitus: (6) COPD (chronic obstructive pulmonary disease): (7) CAD (coronary artery disease): Plan Patient is a 88-year-old gentleman with known adenocarcinoma of the lung and COPD presented to the emergency room with increasing shortness of breath. In the emergency room evaluation was significant for imaging consistent with pneumonia, some signs of decompensated heart failure and was noted to be hypoxic. Patient was admitted to the hospital. Was placed on oxygen. Was treated with antibiotics for pneumonia. He was diuresed with IV Lasix. Cardiology consultation was obtained. Echocardiogram was performed showed a normal ejection fraction. With diuresis his hypoxia resolved and could be titrated to room air. He was transition to oral antibiotics. His activity was increased. His electrolytes were replaced. On day of discharge his vital signs are stable. He was on room air. He was steadily improving. He can be discharged home on oral antibiotics and ongoing diuresis and follow-up with his outpatient providers. Case management was also involved in his care and help coordinate follow-up with home health care. Notes For Next Care Provider Continue to monitor ongoing needs for diuresis Follow-up with cardiology Good weight is less than 73 kg Medication Changes From Visit Lasix added daily Ceftin and doxycycline for pneumonia Potassium supplementation Admission HPI Per Admitting Provider This is a 88-year-old male who has significant past medical history chronic diastolic CHF, CAD with history of angioplasty to LAD, HTN, HLD, T2DM, COPD, left lung adenocarcinoma and history of tobacco use who presents to ED secondary to Shortness of breath and chest fluttering x 1 day. Hx obtained from pt, at bedside and external chart review.patient states at approximately 12 AM this morning he was lying in bed whenever he got a feeling of, "fluttering in his chest," his arms and hands were shaking, chills and sweats. states that he sleeps in a recliner so did not witness the event. He also felt increasingly more short of breath during the event. He states after approximately 3 hours the symptoms resolved on its own and he felt significantly weak after the event. It took him until approximately 5 AM to be able to get up and try to ambulate. He continued to feel weak and short of breath. He denied any amy chest pain, fever, lightheadedness, dizziness, nausea, vomiting, abdominal pain, changes bowel or urinary habits. He does have a chronic mildly productive cough. He feels this is unchanged. He does still feel more short of breath. He has never experienced anything like this before. He does follow with [facility] cardiology given his known history of diastolic CHF and prior angioplasty to his LAD. He has been compliant with his medications. He lives with his at home and is otherwise active. He was seen and evaluated by PCP who recommended further evaluation in ED due to patient being slightly hypoxic at 88%. In ED patient was hemodynamically stable. He did require 2 L of oxygen via nasal cannula to maintain saturation around 94%. His CBC and CMP was generally unremarkable. Initial troponin was WNL. His BNP was elevated at 181. He does have a mildly elevated procalcitonin at 0.64. His respiratory bio fire was negative. CXR concerning for b/l PNA. Admission Exam Per Admitting Provider See H&P Discharge Exam Constitutional: Alert, nontoxic, no acute distress HEENT: Mucous membranes moist. Lungs: Decreased breath sounds, rales at bases improved CV: S1-S2, regular Abdomen: Soft, nontender, nondistended Extremities: No significant edema Neuro: No focal deficits Psych: Cooperative, normal mood Updated Medication List Medication Instructions Recorded Confirmed Type amlodipine 5 mg tablet (Norvasc) 5 mg PO QAM 01/22/20 08/09/24 History atorvastatin 40 mg tablet (Lipitor) 40 mg PO QPM 01/22/20 08/09/24 History lisinopril 10 mg tablet 10 mg PO QAM 01/22/20 08/09/24 History vit C 250 mg-vit E 90 mg-zinc 40 1 tab PO BID 01/22/20 08/09/24 History mg-copper 1 di-amrggt-aqhtpi capsule (PreserVision AREDS-2) aspirin 81 mg tablet,delayed 81 mg PO QAM 04/03/22 08/09/24 History release latanoprost 0.005 % eye drops 1 drp OPB HS 04/03/22 08/09/24 History aflibercept 2 mg/0.05 mL 2 mg intravitreal DIRECTED 07/30/22 08/09/24 History intravitreal syringe (Eylea) fluticasone 250 mcg-salmeterol 50 1 inh inhalation Q12H 07/30/22 08/09/24 History mcg/dose blistr powdr for inhalation (Advair Diskus) fluticasone propionate 50 2 spray intranasal QAM 08/09/24 08/09/24 History mcg/actuation nasal spray,suspension cefdinir 300 mg capsule 300 mg PO BID 3 days #6 caps 08/12/24 Rx doxycycline hyclate 100 mg capsule 100 mg PO BID 3 days #6 caps 08/12/24 Rx furosemide 20 mg tablet 20 mg PO QAM #20 tabs 08/12/24 Rx potassium chloride 20 mEq 20 meq PO DAILY #30 tabs 08/12/24 Rx tablet,extended release(part/cryst) Hospital Stay Data Consultations 08/09/24 19:06 ED Decision to Admit Stat 08/09/24 22:08 Consult Cardiology Routine Diagnostic Imagining Performed Reviewed imaging, laboratory and diagnostic studies. Pertinent findings as below. Echocardiogram showed ejection fraction 6065% with some mild left ventricular hypertrophy, no significant aortic stenosis, no evidence of pulmonary hypertension WBCs 5.9 Hemoglobin 11.9 Electrolytes within normal range Creatinine 0.78 Pending Results Patient Have Any Pending Studies at Discharge: No Discharge Instructions Given to Patient (Per Discharging Provider) Follow-up with your primary care provider Follow-up with cardiology in the office Call 911 and go to the Emergency Room if: * You have tightness or pain in your chest that does not go away with rest or Nitroglycerin * You are very short of breath even with rest Call your doctor if any of the following symptoms or problems start or get worse: * Shortness of breath or difficulty breathing * Wake up at night short of breath * Chest pain * Cough * Swelling of your hands, fee, or legs * More fatigued or tired with your normal activity * Palpitations - sudden fast heart beats WEIGHT * Weigh yourself every morning after using the bathroom. * Use the same scale. * Wear the same amount of clothing. * Write your weight down on your chart. * Call your doctor if you gain more than 2-3 pounds in 1-2 days. MEDICATIONS * Use this discharge instruction sheet for instructions. * Take your medications at the time your doctor ordered. * Do not skip a dose of your medicines. * If you miss a dose of medicine, take as soon as possible, but DO NOT DOUBLE A DOSE. * Read your medicine information when you get home. * Know all of the side effects of your medicine. * Call your doctor's office if you have any side effects. * Be sure all of your doctors know what medicine and herbs you take (including cold, flu, and herbal medicine). * Pain Medicine: If you do not get relief from your pain, please call your doctor for help. Take the following with you to your follow-up doctor appointments: * Weight Chart * Medication List * List of questions Do not drink excessive alcohol, beer or wine. A good weight for you less than 73 kg/161 pounds Home Health Attestation I certify that this patient is under my care and that I, or a physicians yard assistant working with me, had a face to-face encounter that meets the home health [id number] encounter requirements with this patient. The encounter with the patient was in whole, or in part, for the following medical condition, which is the primary reason for home health care (list medical condition): I certify that, based on my findings, the following services are medically necessary home health services: My clinical findings support the need for the above services because: Further, I certify that my clinical findings support that this patient is homebound (i.e. absences from home require considerable and taxing effort and are for medical reasons or christian services or infrequently or of short duration when for other reasons) because: Certification for Home Health Services: Based on the above findings, I certify that this patient is confined to the home and needs intermittent shelter care, physical therapy and/or speech therapy or continues to need occupational therapy. The patient is under my care, and I have initiated the establishment of the plan of care. This patient will be followed by a physician who will periodically review the plan of care. Total Time Total Time Spent Total Time Spent (In Minutes): 35
[2024-08-12 11:22] VITALS: PULSE 87; TEMP 97.9; O2SAT 94
[2024-08-12 11:28] VITALS: BP 123/74
== END 2024-08-12 13:12 | disposition home health service (06) | DRG 193 ==
LOC: ED 16:57 → 2N 19:20 → SUATTDRO 19:20 → 2N 21:35